=== PATIENT | female | born 1955 | race Caucasian/White ===

== ENCOUNTER → 2020-09-20 10:55 | Outpatient (BNVA) | payer OTHER, SELFPAY | PROVIDERS: Visit Provider Nurse Practitioner Family | DX: Z20.822 Contact with and (suspected) exposure to COVID-19 (principal); J06.9 Acute upper respiratory infection, unspecified | CPT/HCPCS: 87426 ==

== ENCOUNTER → 2021-01-17 09:20 | Outpatient (BNVA) | payer OTHER, SELFPAY | PROVIDERS: Visit Provider Nurse Practitioner Family | DX: Z20.822 Contact with and (suspected) exposure to COVID-19 (principal) | CPT/HCPCS: 87426 ==

== ENCOUNTER 2021-01-22 13:36 | Emergency (ER) | payer OTHER, SELFPAY ==
[2021-01-22 13:40] VITALS: BP 121/77; PULSE 88; RESP 18; TEMP 36.6; O2SAT 93; BMI 32.1
--- NOTE | 2021-01-22 13:40 | XR_ITS ---
WS: [id number] Exam: XR chest 1V portable [id number] Date/Time of Exam: 01/22/2021 1:40 PM Reason For Exam: COVID/sob Comparison 04/08/2014. There are subtle groundglass infiltrates throughout the right lung and the mid and lower left lung amador spicious for pneumonia. The lungs are fully inflated. No pleural effusions. Cardiomediastinal structu res are unremarkable for technique. Bony elements are intact. XR/XR chest 1V portable [id number] IMPRESSION: 1. Subtle bilateral groundglass infiltrates throughout both lungs suggesting pn eumonia. This pattern is nonspecific but could be seen with Covid pneumonia.
--- NOTE | 2021-01-22 13:54 | ED_ITS ---
Documented by User: GIULIANO Dunlap 01/22/21 15:59 HPI - COVID General: Chief Complaint: Shortness of Breath/Dyspnea Stated Complaint: COVID +/COUGH/CONGESTION Time Seen by Provider: 01/22/21 13:54 Source: patient Mode of arrival: ambulatory Limitations: no limitations Triage information: Has fever, cough or shortness of breath . Exposure to COVID + person last 14 days History of Present Illness: HPI Narrative: Patient is a nice 65-year-old female who presents to ED today with a complaint of a cough secondary to COVID. Patient states she tested positive for COVID on 01/17. She states symptoms began the day of testing. She states her cough is nonproductive. She has noticed some shortness of breath with exertion. She has not been running fevers. No diarrhea. No abdominal pain. No vomiting. She is not having any chest pressure or discomfort. MD complaint: known COVID positive Prior covid testing: yes, results known Prior testing date: 01/17/21 COVID 19 common symptoms: positive non-productive cough, dyspnea, fatigue and headache(s); negative fever(s), chills, throat pain, nasal congestion, nausea, vomiting or diarrhea COVID 19 other sytmptoms: negative chest pain Onset (ago): day(s) Severity: moderate COVID Results: SARS-CoV-2 Antigen (Rapid) Positive (Negative) H 01/17/21 09:20 01/17/21 Review of Systems Const: Reports: fatigue; Denies: fever(s) or chills Eyes: Denies: change in vision ENMT: Denies: throat pain, odynophagia, nasal discharge or nasal congestion Card: Reports: dyspnea on exertion; Denies: chest pain, palpitations, irregular heart rhythm, edema, lightheadedness, syncope, pre-syncope or leg pain with exertion Resp: Reports: dyspnea, non-productive cough and chest congestion; Denies: wheezing or hemoptysis GI: Denies: abdominal pain, nausea, vomiting or diarrhea Musc: Denies: neck pain, back pain, extremity pain or joint pain Skin/Breast: Denies: rash Neuro: Reports: headache(s); Denies: numbness in extremities, weakness in extremities, sensory changes, difficulty walking or dizziness [facility] ED PFSH: Medical History (Updated 01/27/21 @ 16:27 by Joe Burch MD) GERD (gastroesophageal reflux disease) Sarcoidosis Surgical History (Updated 01/27/21 @ 16:27 by Joe Burch MD) Gastric bypass status for obesity Social History (Updated 01/27/21 @ 16:28 by Joe Burch MD) Smoking and tobacco status: former smoker Alcohol intake: never Substance/Drug Use: never Caregiver/support person: Yes Lives independently: Yes Household members: family Housing: House Marital status: Physical Exam Const: COMMON NORMALS: no acute distress, patient oriented x3, no limitations, healthy appearing, alert and well nourished GENERAL APPEARANCE: cooperative NUTRITIONAL APPEARANCE: overweight ORIENTATION/CONSCIOUSNESS: Yes awake, Yes oriented to person, Yes oriented to place and Yes oriented to time HENMT: COMMON NORMALS: normocephalic and atraumatic HEAD & SCALP: normocephalic and atraumatic Resp: COMMON NORMALS: normal respiratory effort and clear to auscultation bilaterally AUSCULTATION: clear to auscultation bilaterally Cardio: COMMON NORMALS: regular rate and regular rhythm RATE: regular rate RHYTHM: regular rhythm Extremity: COMMON NORMALS: no clubbing, cyanosis or edema and no calf tenderness Neuro: COMMON NORMALS: patient oriented x3 SENSORIUM/ORIENTATION: Yes alert, Yes oriented to person, Yes oriented to place and Yes oriented to time Course Vital Signs: Vital signs: Vital Signs Temperature 97.8 F 01/22/21 15:58 Pulse Rate 88 01/22/21 15:58 Respiratory Rate 18 01/22/21 15:58 Blood Pressure 121/77 01/22/21 15:58 Pulse Oximetry 93 01/22/21 15:58 MDM - COVID MDM Narrative: Medical decision making narrative: Patient CXR consistent with COVID-19 pneumonia with groundglass infiltrates. Her vital signs are stable. Respiratory came and evaluated patient with a home O2 evaluation and she did not qualify for oxygen. She does qualify for MCA based on her weight (over 25 BMI). Patient will be discharged home with an oral prescription for dexamethasone and will be discharged directly to infusion center for MCA. Strict return to ED precautions given. Imaging Data: CXR: Radiologist's impression: [address] [place] [address] XRay Report Signed Patient: Amy Tovar Unit #: [id number] : [id number] Age/Sex: 65 / F ADM Date: 01/22/21 Loc: ER Room/Bed: Attending Dr: Ordering Provider/Ordering MD: Francisca Mcneil Date of Service: 01/22/21 Procedure(s): XR chest 1V portable [id number] Accession Number(s): [id number] Report Number: [id number] WS: [id number] Exam: XR chest 1V portable [id number] Date/Time of Exam: 01/22/2021 1:40 PM Reason For Exam: COVID/sob Comparison 04/08/2014. There are subtle groundglass infiltrates throughout the right lung and the mid and lower left lung suspicious for pneumonia. The lungs are fully inflated. No pleural effusions. Cardiomediastinal structures are unremarkable for technique. Bony elements are intact. XR/XR chest 1V portable [id number] IMPRESSION: 1. Subtle bilateral groundglass infiltrates throughout both lungs suggesting pneumonia. This pattern is nonspecific but could be seen with Covid pneumonia. Dictated By: Humberto Keita DO Signed By: Humberto Keita DO Signed Date/Time: 01/22/21 1406 DD/ 140 COVID Results: SARS-CoV-2 Antigen (Rapid) Positive (Negative) H 01/17/21 09:20 01/17/21 Monoclonal Antibody - ED Inclusion/Exclusion Criteria age >/= 12 years, weight >/= 40kg /88lbs, symptom onset less than 10 days ago and + direct Sars-Cov-2 test less than 7-10 days ago obesity (BMI >25 or 85%til for age) not requiring hospitalization, not requiring oxygen (if not chronically on oxygen) and no increase oxygen requirement (if chronically on oxygen) Patient education patient/family/caregiver received/reviewed fact sheet, Emergency Use Authorization/unapproved drug status discussed with patient/family/caregiver, alternatives to this treatment discussed with patient/family/caregiver, risks and benefits of medication reviewed with patient/family/caregiver, patient/family/caregiver given opportunity for questions, which were answered and patient consents to receiving Monoclonal Antibody Treatment Plan for treatment Meets criteria for Monoclonal Antibody infusion Date of symptom(s) onset: 01/17/21 Where are the positive COVID test results, if positive?: Resulted in [facility] Ordering Monoclonal Antibody infusion for today Discharge Plan Discharge Patient Disposition: Home Clinical Impression: Pneumonia due to 2019-nCoV Condition: Stable Prescriptions: No Action hydrocodone-acetaminophen 10-325 mg tablet 1 tab PO Q6H PRN (Reason: Pain) RF: 0 pantoprazole 40 mg tablet,delayed release (DR/EC) 40 mg PO BID RF: 0 biotin 5 mg capsule 5 mg PO DAILY PRN (Reason: takes when she remembers) RF: 0 Tylenol Ex Str Rapid Release 500 mg Tablet 500 mg PO Q4H PRN (Reason: Pain) RF: 0 trazodone 100 mg tablet 100 mg PO BEDTIME PRN (Reason: Sleep) RF: 0 ProAir HFA 90 mcg/actuation Hfa Aerosol Inhaler 2 puff INHALATION QID PRN (Reason: Shortness Of Breath) RF: 0 Bariatric Multivitamins 45 mg iron- 800 mcg-120 mcg Capsule 1 cap PO DAILY PRN (Reason: states she takes when she remembers) RF: 0 dexamethasone 6 mg tablet 6 mg PO DAILY RF: 0 Discharge Orders: Discharge ED (Routine); Ordered 01/22/21 Ordered By: Francisca Mcneil Other Ambulatory Orders: Request for MCA (Routine) Timeframe: 1 Day Facility: [facility] - Location: Outpatient [facility] Ordered By: Francisca Mcneil Patient Instructions: COVID-19 (Coronavirus Disease 2019) (ED) Activity Restrictions/Additional Instructions: As we discussed you did not qualify for home oxygen on your respiratory trial in the ED. You qualify for a monoclonal antibody infusion. This has been ordered to be completed directly after your discharge from the ED. You need to return to the emergency department for severe shortness of breath or difficulty breathing, severe chest pain, or any other concerns you may have. I hope you begin to feel better soon. Coding Level of Care Code ED [employer]er for [facility] Fw[facility] Exam Detailed Documented by User: Denzel Springre MD 01/27/21 21:42 HPI - COVID General: Chief Complaint: Shortness of Breath/Dyspnea Stated Complaint: COVID +/COUGH/CONGESTION Time Seen by Provider: 01/22/21 13:54 COVID Results: SARS-CoV-2 Antigen (Rapid) Positive (Negative) H 01/17/21 09:20 01/17/21 [facility] ED PFSH: Medical History (Updated 01/27/21 @ 16:27 by Joe Burch MD) GERD (gastroesophageal reflux disease) Sarcoidosis Surgical History (Updated 01/27/21 @ 16:27 by Joe Burch MD) Gastric bypass status for obesity Social History (Updated 01/27/21 @ 16:28 by Joe Burch MD) Smoking and tobacco status: former smoker Alcohol intake: never Substance/Drug Use: never Caregiver/support person: Yes Lives independently: Yes Household members: family Housing: House Marital status: Course Vital Signs: Vital signs: Vital Signs Temperature 97.8 F 01/22/21 15:58 Pulse Rate 88 01/22/21 15:58 Respiratory Rate 18 01/22/21 15:58 Blood Pressure 121/77 01/22/21 15:58 Pulse Oximetry 93 01/22/21 15:58 MDM - COVID MDM Narrative: Medical decision making narrative: I have reviewed this documentation. Denzel Springer MD Emergency Medicine COVID Results: SARS-CoV-2 Antigen (Rapid) Positive (Negative) H 01/17/21 09:20 01/17/21 Discharge Plan Discharge Patient Disposition: Home Clinical Impression: Pneumonia due to 2019-nCoV Condition: Stable Prescriptions: No Action hydrocodone-acetaminophen 10-325 mg tablet 1 tab PO Q6H PRN (Reason: Pain) RF: 0 pantoprazole 40 mg tablet,delayed release (DR/EC) 40 mg PO BID RF: 0 biotin 5 mg capsule 5 mg PO DAILY PRN (Reason: takes when she remembers) RF: 0 Tylenol Ex Str Rapid Release 500 mg Tablet 500 mg PO Q4H PRN (Reason: Pain) RF: 0 trazodone 100 mg tablet 100 mg PO BEDTIME PRN (Reason: Sleep) RF: 0 ProAir HFA 90 mcg/actuation Hfa Aerosol Inhaler 2 puff INHALATION QID PRN (Reason: Shortness Of Breath) RF: 0 Bariatric Multivitamins 45 mg iron- 800 mcg-120 mcg Capsule 1 cap PO DAILY PRN (Reason: states she takes when she remembers) RF: 0 dexamethasone 6 mg tablet 6 mg PO DAILY RF: 0 Discharge Orders: Discharge ED (Routine); Ordered 01/22/21 Ordered By: Francisca Mcneil Other Ambulatory Orders: Request for MCA (Routine) Timeframe: 1 Day Facility: [facility] - Location: Outpatient Surgical Services Ordered By: Francisca Mcneil Patient Instructions: COVID-19 (Coronavirus Disease 2019) (ED) Activity Restrictions/Additional Instructions: As we discussed you did not qualify for home oxygen on your respiratory trial in the ED. You qualify for a monoclonal antibody infusion. This has been ordered to be completed directly after your discharge from the ED. You need to return to the emergency department for severe shortness of breath or difficulty breathing, severe chest pain, or any other concerns you may have. I hope you begin to feel better soon. Coding Level of Care Code ED Wool Cleaner for [facility] Fwd Exam Detailed
[2021-01-22 14:41] VITALS: O2SAT 90; O2SAT 95
[2021-01-22 15:58] VITALS: BP 121/77; PULSE 88; RESP 18; TEMP 36.6; O2SAT 93
== END 2021-01-22 15:59 | disposition home or self-care (01) ==
PROVIDERS: Emergency Provider Physician Assistant
DX: U07.1 COVID-19 (principal); J12.82 Pneumonia due to coronavirus disease 2019; Z87.891 Personal history of nicotine dependence
CPT/HCPCS: 71045; 96365; 99282

== ENCOUNTER 2021-01-22 16:08 | Outpatient (CLI) | payer OTHER, SELFPAY ==
[2021-01-22 16:08] VITALS: BP 158/93; PULSE 83; RESP 22; TEMP 37.1; O2SAT 94
[2021-01-22 16:19] VITALS: BMI 32.1
--- NOTE | 2021-01-22 17:21 | PC.NURSE ---
Orders for monoclonal infusion were not interfacing through. Spoke with Francisca Mcneil and was given a verbal order over the phone which was read back to her regarding initiating Monoclonal infusion for the patient. Nurse will continue to monitor the patient during infusion and one hour after completion.
[2021-01-22 18:40] VITALS: BP 160/90; PULSE 83; RESP 19; TEMP 37.2; O2SAT 94
== END 2021-01-22 16:09 | disposition home or self-care (01) ==
PROVIDERS: PCP Family Medicine; Visit Provider Physician Assistant
DX: U07.1 COVID-19 (principal)
CPT/HCPCS: 96365

== ENCOUNTER 2021-01-27 13:04 | Inpatient (IN) | payer OTHER, SELFPAY ==
[2021-01-27] VITALS (17 sets, daily range): BP systolic 138–192; BP diastolic 80–115; PULSE 62–103; RESP 18–30; TEMP 36.6–37.1; O2SAT 84–99; BMI 32.1
--- NOTE | 2021-01-27 13:27 | XR_ITS ---
WS: [id number] XR chest 1V portable [id number] REASON FOR EXAM: SOB/COVID FINDINGS: Compared to previous chest x-ray of 01/22/2021, a reticular groundglass infiltrative process has fully developed in the left lower and left midlung ramirez. Likely similar infiltrative changes are develop ing in the lower right lung. No other significant interval change or new finding. XR/XR chest 1V portable [id number] IMPRESSION: Developing infiltrates in the left and likely the right lung as well. 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
--- NOTE | 2021-01-27 13:34 | PC.NURSE ---
during triage noted SP02 85% with work of breathing and unable to speak complete sentence. placed pt on 3L NC
--- NOTE | 2021-01-27 13:37 | PC.NURSE ---
Notified Charge nurse, pt to room 15 when clean
--- NOTE | 2021-01-27 14:32 | CTR_ITS ---
PROCEDURE INFORMATION: Exam: CTA Chest With Contrast Exam date and time: 01/27/2021 2:32 PM Age: 65 years old Clinical indication: Shortness of breath; Additional info: Hypoxia/covid TECHNIQUE: Imaging protocol: Computed tomographic angiography of the chest with contrast. 3D rendering (Not supervised by radiologist): MIP and/or 3D reconstructed images were created by the technologist. Radiation optimization: All CT scans at this facility use at least one of these dose optimization techniques: automated exposure control; mA and/or kV adjustment per patient size (includes targeted exams where dose is matched to clinical indication); or iterative reconstruction. Contrast material: OMNI 350; Contrast volume: 73 ml; Contrast route: INTRAVENOUS (IV); COMPARISON: CR XR chest 1V portable [id number] 01/27/2021 1:31 PM RADIATION DOSE METRICS: Total DLP (mGy-cm): 598.11 FINDINGS: Pulmonary arteries: Normal. No pulmonary emboli. Aorta: Unremarkable. No aortic aneurysm. No aortic dissection. Lungs: Patchy bilateral airspace infiltrates. Pleural spaces: Unremarkable. No pneumothorax. No pleural effusion. Heart: Cardiomegaly. Lymph nodes: Several prominent subcentimeter nonspecific mediastinal lymph nodes. Gallbladder and bile ducts: Cholecystectomy. Bones/joints: Unremarkable. No acute fracture. Soft tissues: Unremarkable. CT/CT angio chest PE protcl [id number] IMPRESSION: 1. Negative for pulmonary embolus. 2. Cardiomegaly. 3. Several prominent subcentimeter nonspecific mediastinal lymph nodes. 4. Cholecystectomy. 5. Patchy bilateral airspace infiltrates.
--- NOTE | 2021-01-27 14:33 | W.ED.COVID ---
HPI - COVID General: Chief Complaint: COVID symptoms Stated Complaint: COVID + TROUBLE BREATHING Time Seen by Provider: 01/27/21 14:18 Triage information: Has fever, cough or shortness of breath. Exposure to COVID + person last 14 days History of Present Illness: HPI Narrative: 65-year-old female presents emergency room with complaints of difficulty breathing. Tested positive for Covid on rapid antigen on 01/17/2021 subsequently did receive monoclonal antibodies despite this she has gotten progressive worsening symptoms particularly her breathing on arrival here she presents with an O2 sat 84% on initially on room air however when I went in to see the patient she is on 3 L and was still in the low to mid 90s I increased her oxygen to 6 L by nasal cannula and she improved to 90%. She is noticeably tachypneic and having increased work of breathing. complaint: known COVID positive Prior covid testing: yes, results known Prior testing date: 01/17/21 COVID 19 common symptoms: positive fever(s), chills, cough, non-productive cough, dyspnea, fatigue, body aches, headache(s), loss of sense of smell and/or taste, throat pain, nasal congestion and vomiting COVID 19 other sytmptoms: positive requiring oxygen; negative chest pain Onset (ago): day(s) Severity: severe Pertinent comorbid conditions: obesity Treatment prior to arrival: steroids COVID Results: SARS-CoV-2 Antigen (Rapid) Positive (Negative) H 01/17/21 09:20 01/17/21 Review of Systems Const: Reports: fever(s), chills, body aches and fatigue ENMT: Reports: throat pain and nasal congestion Card: Denies: chest pain, edema, dyspnea on exertion or orthopnea Resp: Reports: dyspnea and non-productive cough GI: Reports: vomiting : Denies: flank pain, difficulty voiding, dysuria, urinary frequency or urinary urgency Skin/Breast: Denies: rash or pruritus Neuro: Reports: headache(s) [facility] ED PFSH: Medical History (Updated 01/28/21 @ 06:55 by Rhys Ruvalcaba DO) GERD (gastroesophageal reflux disease) Sarcoidosis Surgical History (Updated 01/27/21 @ 16:27 by Joe Burch MD) Gastric bypass status for obesity Social History (Updated 01/27/21 @ 16:28 by Joe Burch MD) Smoking and tobacco status: former smoker Alcohol intake: never Substance/Drug Use: never Caregiver/support person: Yes Lives independently: Yes Household members: family Housing: House Marital status: Physical Exam Const: GENERAL APPEARANCE: cooperative ORIENTATION/CONSCIOUSNESS: Yes awake, Yes oriented to person, Yes oriented to place and Yes oriented to time HENMT: COMMON NORMALS: normocephalic, atraumatic, hearing grossly normal bilaterally and external ears normal HEAD & SCALP: normocephalic and atraumatic EXTERNAL EAR: Yes external ears normal Neck/C-Spine: COMMON NORMALS: no JVD Resp: EFFORT & INSPECTION: Yes tachypneic, Yes respiratory distress and Yes labored AUSCULTATION: crackles and wheezes Cardio: COMMON NORMALS: no JVD, regular rate, regular rhythm and No murmurs present (Cardio) RATE: regular rate RHYTHM: regular rhythm GI: COMMON NORMALS: Soft to palpation and No hepatosplenomegaly present AUSCULTATION: Yes normoactive bowel sounds PALPATION: Yes Soft to palpation, No Tenderness to palpation present (GI), No Guarding due to palpation present (GI) and Yes No hepatosplenomegaly present Extremity: COMMON NORMALS: normal to inspection, capillary refill normal, no clubbing, cyanosis or edema, no calf tenderness and no pedal edema Neuro: SENSORIUM/ORIENTATION: Yes oriented to person, Yes oriented to place and Yes oriented to time Skin: COMMON NORMALS: no rashes or lesions noted GENERAL SKIN EXAM: no rashes or lesions noted Course Vital Signs: Vital signs: Vital Signs Temperature 97.9 F 01/28/21 04:00 Pulse Rate 70 01/28/21 06:00 Respiratory Rate 18 01/28/21 06:00 Blood Pressure 161/100 01/28/21 06:00 Pulse Oximetry 92 01/28/21 06:00 MDM - COVID MDM Narrative: Medical decision making narrative: Labs imaging reviewed.Patient has Covid pneumonitis. Also concerned because elevated procalcitonin with secondary pneumonia antibiotics started start remdesivir and dexamethasone will admit she is on heated high flow at this time am concerned that she may have been impending for respiratory arrest and may require intubation she is agreeable to this. We will place her in the ICU. Lab Data: Labs: Lab Results 01/27/21 01/27/21 01/27/21 14:37 14:37 14:37 WBC 12.6 10^3/uL H 10 ^3/uL (4.0-10.0) RBC 5.06 10^6/uL 10^6 /uL (4.1-5.3) Hgb 14.0 g/dL g/dL (11.5-15.3) Hct 43.8 % % (37.0-47.0) MCV 86.6 fl fl (81-99) MCH 27.7 pg L pg (28.0-34.0) MCHC 32.0 g/dL g/dL (30.0-36.0) RDW 14.1 % % (12.1-15.1) Plt Count 554 10^3/cmm H 10 ^3/cmm (130-400) MPV 10.2 fL fL (7.4-10.4) Neut % (Auto) 93.0 % % Lymph % (Auto) 2.2 % % Schoolcraft % (Auto) 1.5 % % Eos % (Auto) 0.0 % % Baso % (Auto) 0.2 % % Neut # (Auto) 11.67 10^3/uL H 1 0^3/uL (1.8-7.7) Lymph # (Auto) 0.3 10^3/uL L 10^ 3/uL (0.8-4.8) Schoolcraft # (Auto) 0.2 10^3/uL 10^3/ uL (0.2-0.9) Eos # (Auto) 0.0 10^3/uL 10^3/ uL (0.0-0.8) Baso # (Auto) 0.0 10^3/uL 10^3/ uL (0.0-0.1) Nucleated RBC % (a uto) 0 % % Nucleated RBCs # 0.0 /100WBC /100W BC PT 14.60 SECONDS SEC ONDS (12.1-14.9) INR 1.11 (0.8-1.2) APTT 35.3 SECONDS SECO NDS (23.9-36.7) D-Dimer 2.39 ug/mIFEU H u g/mIFEU (0-0.59) Specimen Type Arterial Sample Site Radial, left ABG pH 7.59 H* (7.35-7.45) ABG pCO2 23.6 mmHg L mmHg (35-45) ABG pO2 47.2 mmHg L mmHg (80.0-100.0) ABG HCO3 22.5 mmol/L mmol/ L (22-26) ABG Base Excess 2.3 mmol/L H mmol /L (-2.0-2.0) Norris Test Pos Hematocrit 41.5 % % (37-47) O2 Delivery Device Nc O2 Liters/Min 6.0 % % Office Employee ID Cak Sodium Potassium Chloride Carbon Dioxide Anion Gap BUN Creatinine GFR Calculation Glucose Calculated Osmolal ity Lactic Acid Calcium Iron TIBC % Saturation Unsat Iron Binding Total Bilirubin AST ALT Alkaline Phosphata se Creatine Kinase C-Reactive Protein Total Protein Albumin Globulin Procalcitonin TSH Influenza Type A A g Influenza Type B A g 01/27/21 01/27/21 01/27/21 14:37 14:37 14:37 WBC RBC Hgb Hct MCV MCH MCHC RDW Plt Count MPV Neut % (Auto) Lymph % (Auto) Schoolcraft % (Auto) Eos % (Auto) Baso % (Auto) Neut # (Auto) Lymph # (Auto) Schoolcraft # (Auto) Eos # (Auto) Baso # (Auto) Nucleated RBC % (a uto) Nucleated RBCs # PT INR APTT D-Dimer Specimen Type Sample Site ABG pH ABG pCO2 ABG pO2 ABG HCO3 ABG Base Excess Norris Test Hematocrit O2 Delivery Device O2 Liters/Min Office Employee ID Sodium 141 mmol/L mmol/L (136-145) Potassium 3.4 mmol/L L mmol /L (3.5-5.1) Chloride 102 mmol/L mmol/L (98-107) Carbon Dioxide 24 mmol/L mmol/L (22-29) Anion Gap 18.4 (5-19) BUN 20 mg/dL mg/dL (8-23) Creatinine 0.7 mg/dL mg/dL (0.5-0.9) GFR Calculation 84.2 mL/min L mL/ min (90-130) Glucose 111 mg/dL mg/dL (65-115) Calculated Osmolal ity 295 mOsm/kg mOsm/ kg (285-295) Lactic Acid 1.9 mmol/L mmol/L (0.5-2.2) Calcium 8.9 mg/dL mg/dL (8.5-10.5) Iron 20 ug/dL L ug/dL (37-145) TIBC 244 mcg/dl mcg/dl % Saturation 8.1 % L % (20-50) Unsat Iron Binding 224 ug/dL ug/dL (112-347) Total Bilirubin 0.3 mg/dL mg/dL (0.15-1.2) AST 16 U/L U/L (0-32) ALT 11 U/L U/L (0-33) Alkaline Phosphata se 124 IU/L H IU/L (35-105) Creatine Kinase C-Reactive Protein 322.7 mg/L H mg/L (0.0-4.9) Total Protein 8.4 g/dL g/dL (6.6-8.7) Albumin 3.5 g/dL g/dL (3.5-5.2) Globulin 4.9 g/dL H g/dL (1.3-4.6) Procalcitonin 2.13 ng/mL H ng/m L (0-0.5) TSH Influenza Type A A g Influenza Type B A g 01/27/21 01/27/21 14:37 16:49 WBC RBC Hgb Hct MCV MCH MCHC RDW Plt Count MPV Neut % (Auto) Lymph % (Auto) Schoolcraft % (Auto) Eos % (Auto) Baso % (Auto) Neut # (Auto) Lymph # (Auto) Schoolcraft # (Auto) Eos # (Auto) Baso # (Auto) Nucleated RBC % (a uto) Nucleated RBCs # PT INR APTT D-Dimer Specimen Type Sample Site ABG pH ABG pCO2 ABG pO2 ABG HCO3 ABG Base Excess Norris Test Hematocrit O2 Delivery Device O2 Liters/Min Office Employee ID Sodium Potassium Chloride Carbon Dioxide Anion Gap BUN Creatinine GFR Calculation Glucose Calculated Osmolal ity Lactic Acid Calcium Iron TIBC % Saturation Unsat Iron Binding Total Bilirubin AST ALT Alkaline Phosphata se Creatine Kinase 45 U/L U/L (26-192) C-Reactive Protein Total Protein Albumin Globulin Procalcitonin TSH 0.56 uIU/mL uIU/m L (0.27-4.20) Influenza Type A A g Negative (Negative) Influenza Type B A g Negative (Negative) COVID Results: SARS-CoV-2 Antigen (Rapid) Positive (Negative) H 01/17/21 09:20 01/17/21 Critical Care Time Critical Care Time: Critical Care Time: Yes Total Critical Care Time: 40 Attestation: The high probability of a clinically significant, sudden or life threatening deterioration of the patient's respiratory system(s) required my full and direct attention, intervention and personal management. The critical care time is as shown. This time is in addition to time spent performing any reported procedures but includes the following: [x] Data and vital sign review and interpretation [x] Patient assessment, examination and intervention [x] Documentation [x] Medication orders and management Discharge Plan Discharge Patient Disposition: Admitted As Inpatient Admit Provider: Joe Burch Clinical Impression: Acute respiratory failure with hypoxia, COVID-19, Pneumonia due to 2019-nCoV Condition: Stable Coding Level of Care Code ED Manufacturing Supervisor 2Nd Shift for [facility] Fwd Exam Comprehensive
[2021-01-27 14:48] LABS: ABG PCO2 23.6 mmHg (35-45); Arterial Blood Gas Hematocrit 41.5 % (37-47); Base Excess ABG 2.3 mmol/L (-2.0-2.0); Blood Gas Allen Test Pos; Blood Gas Operator Identificat CAK; Blood Gas Sample Site Radial, left; Blood Gas Sample Type Arterial; HCO3 ABG 22.5 mmol/L (22-26); Oxygen Device NC; PO2 ABG 47.2 mmHg (80.0-100.0)
[2021-01-27 14:49] LABS: ABG PH Result 7.59 (7.35-7.45)
[2021-01-27 15:00] LABS: Basophils % 0.2 %; Hematocrit 43.8 % (37.0-47.0); Lymphocytes # 0.3 10^3/uL (0.8-4.8); Lymphocytes % 2.2 %; Mean Corpuscular Hemoglobin 27.7 pg (28.0-34.0); Mean Corpuscular Volume 86.6 fl (81-99); Mean Platelet Volume 10.2 fL (7.4-10.4); Monocytes # 0.2 10^3/uL (0.2-0.9); Monocytes % 1.5 %; Neutrophils # 11.67 10^3/uL (1.8-7.7); Nucleated Red Blood Cells % 0 %; Platelet Count 554 10^3/cmm (130-400); Red Blood Count 5.06 10^6/uL (4.1-5.3); Red Cell Distribution Width 14.1 % (12.1-15.1); White Blood Count 12.6 10^3/uL (4.0-10.0)
--- NOTE | 2021-01-27 15:00 | PC.NURSE ---
PT ON CONTINUOUS SPO2, NIBP, AND CM MONITORING.
[2021-01-27] MEDS: dexamethasone 10 mg/mL INJ 6 MG IVP (15:04)
[2021-01-27] MEDS: levofloxacin-dextrose 5 % 750 MG/150 ML PREMIX 100 MG IV (15:05)
[2021-01-27 15:23] LABS: INR 1.11 (0.8-1.2)
[2021-01-27 15:24] LABS: Alanine Aminotransferase 11 U/L (0-33); Albumin Level 3.5 g/dL (3.5-5.2); Alkaline Phosphatase 124 IU/L (35-105); Anion Gap 18.4 (5-19); Aspartate Amino Transferase 16 U/L (0-32); Blood Urea Nitrogen 20 mg/dL (8-23); C Reactive Protein 322.7 mg/L (0.0-4.9); Calcium 8.9 mg/dL (8.5-10.5); Carbon Dioxide 24 mmol/L (22-29); Chloride 102 mmol/L (98-107); Creatinine Clr Calc Pharmacy 107.9363; Globulin 4.9 g/dL (1.3-4.6); Glomerular Filtration Rate 84.2 mL/min (90-130); Glucose 111 mg/dL (65-115); Osmolality Calculated 295 mOsm/kg (285-295); Potassium 3.4 mmol/L (3.5-5.1); Sodium 141 mmol/L (136-145); Total Bilirubin 0.3 mg/dL (0.15-1.2); Total Protein 8.4 g/dL (6.6-8.7)
[2021-01-27 15:25] LABS: Partial Thromboplastin Time 35.3 SECONDS (23.9-36.7)
[2021-01-27 15:27] LABS: D Dimer 2.39 ug/mIFEU (0-0.59); Lactic Sepsis W/Reflex 1.9 mmol/L (0.5-2.2)
[2021-01-27 15:30] LABS: Procalcitonin 2.13 ng/mL (0-0.5)
--- NOTE | 2021-01-27 16:25 | P.HP_ITS ---
Providers/Chief Complaint Primary Care Provider: Deacon Armas Chief Complaint: COVID + TROUBLE BREATHING History of Present Illness Amy Tovar is a 65 year old female with past medical history of sarcoidosis, post gastric bypass presented to the ER today after being tested positive for COVID-19 on January 17. Patient is post monoclonal antibody infusion on January 22. Patient is not vaccinated for COVID-19. Patient lives with her and granddaughter who are also having similar symptoms but milder. Patient having increased difficulty in breathing from January 24. Presented to the ER today because was not able to catch her breath. On presentation saturating in low 80s requiring heated high flow up to 45 L to maintain saturation up to 93% currently. On examination patient is in mild respiratory distress, tachypneic, not able to complete sentences because of difficulty in breathing. Saturating 93% on 45 L with heart rate of 83, respiratory rate 25, blood pressure 138/80 mmHg. Review of Systems General: Reports: 10 or more systems reviewed and unremarkable except in HPI and below Const: Denies: fever(s), chills, body aches, change in appetite, change in weight, malaise, night sweats, diaphoresis, change in sleep pattern, daytime sleepiness or snoring Eyes: Denies: change in vision, blurry vision, photophobia, eye discomfort or eye discharge ENMT: Denies: throat pain, enlarged tonsils, hoarseness, mouth pain, oral sores, dry mouth, tinnitus, nasal congestion or post nasal drip Card: Denies: chest pain, palpitations, irregular heart rhythm, edema, swelling of feet/ankles, lightheadedness, syncope, pre-syncope, dyspnea on exertion, orthopnea, leg pain with exertion or acrocyanosis Resp: Denies: dyspnea, productive cough, non-productive cough, wheezing, stridor, pain on inspiration, change in phlegm color, hemoptysis or chest congestion GI: Denies: abdominal pain, nausea, vomiting, hematemesis, coffee ground emesis, dysphagia, heartburn, diarrhea, constipation, bloating, GI cramping, change in bowel habits, pain on defecation, hematochezia or melena : Denies: flank pain, dysuria, urinary frequency, urinary urgency, urinary hesitancy, nocturia or hematuria Musc: Denies: neck pain, back pain, extremity pain, joint pain, joint swelling, joint redness, joint stiffness or limited range of motion Neuro: Denies: headache(s), numbness in extremities, weakness in extremities, sensory changes, lack of coordination, difficulty walking, frequent falls, dizziness, vertigo, confusion, Slurred speech present, difficulty communicating thoughts or seizure-like activity Psych: Denies: anxiety, depression, mood swings, panic attacks, hopelessness or irritability Endo: Denies: polyuria, polydipsia, tired all the time, cold intolerance, excessive sweating, flushing or heat intolerance Claudio/Lymph: Denies: easy bruising or easy bleeding All/Imm: Denies: tongue swelling, facial swelling or acute wheezing Medications/Allergies Home Medications Medication Instructions Recorded Confirmed Last Taken Type biotin 5 mg capsule 5 mg PO DAILY PRN 09/20/20 01/27/21 Unknown History hydrocodone 10 mg-acetaminophen 1 tab PO Q6H PRN 09/20/20 01/27/21 01/27/21 06:00 History 325 mg tablet pantoprazole 40 mg tablet,delayed 40 mg PO BID tab 09/20/20 01/27/21 Unknown History release acetaminophen [Tylenol Ex Str 500 mg PO Q4H PRN 01/27/21 01/27/21 Unknown History Rapid Release] albuterol sulfate [ProAir HFA] 2 puff INHALATION QID PRN 01/27/21 01/27/21 Unknown History dexamethasone 6 mg PO DAILY 01/27/21 01/27/21 01/27/21 History [id number]-vit K 1 cap PO DAILY PRN 01/27/21 01/27/21 Unknown History [Bariatric Multivitamins] trazodone 100 mg PO BEDTIME PRN 01/27/21 01/27/21 Unknown History Allergies Allergy/AdvReac Type Severity Reaction Status Date / Time NSAIDS (Non-Steroidal Allergy Unknown Verified 01/27/21 14:42 Anti-Inflamma PFSH Acute PFSH: Medical History (Updated 01/27/21 @ 16:27 by Joe Burch MD) GERD (gastroesophageal reflux disease) Sarcoidosis Surgical History (Updated 01/27/21 @ 16:27 by Joe Burch MD) Gastric bypass status for obesity Social History (Updated 01/27/21 @ 16:28 by Joe Burch MD) Smoking and tobacco status: former smoker Alcohol intake: never Substance/Drug Use: never Caregiver/support person: Yes Lives independently: Yes Household members: family Housing: House Marital status: Vitals/I&O/Wt Last Vital Signs Temp 98.7 F 01/27/21 13:29 Pulse 83 01/27/21 15:00 Resp 24 H 01/27/21 15:00 BP 138/80 01/27/21 13:29 Pulse Ox 93 01/27/21 15:00 Weight last 48 hrs Weight 104.326 kg Physical Exam Narrative: EXAM NARRATIVE: General: AO x3, tachypneic, in distress because of difficulty in breathing HEENT: PERRLA, pupils bilaterally equal and reactive Chest: Diffuse crackles present all over the lung ramirez, rhonchi present all over the lung ramirez, equal good air entry bilaterally CVS: S1-S2 regular, no murmurs, no tachycardia, no gallops, no rubs Abdomen: Soft, nontender, no organomegaly, bowel sounds present Neuro: No focal deficits, no facial deformity, AO x3, power 5/5 in all limbs Data : 01/27/21 14:37 01/27/21 14:37 Micro: Microbiology 01/27/21 15:06 Blood Culture - Preliminary Blood SPECIMEN COLLECTED A&P Assessment and plan (1) Pneumonia due to 2019-nCoV: Status: Acute (2) Acute respiratory failure with hypoxia: Status: Acute Additional A&P Information Hypoxia secondary to COVID-19 pneumonia: Moderate to severe disease. Oxygen supplementation keeping saturation over 88%. Dexamethasone 6 mg daily. Remdesivir to finish a 5-day course. Vitamin C, zinc. DuoNebs, budesonide twice daily Pulmonary toilet with incentive spirometry flutter valve. We will monitor inflammatory markers including ferritin, ESR, CRP, D-dimer, fibrinogen. If getting elevated will dose Actemra. Patient was made aware of the same and he has given verbal consent. D-dimer elevated. Check CTA to rule out pulmonary embolism. For now we will start patient on full dose anticoagulation with Lovenox 1 mg/kg body weight every 12 hourly as patient requiring high oxygen supplementation. Will monitor for anemia or blood loss. Check sputum culture, procalcitonin, urine Legionella, bacterial antigen, blood culture. For now because patient is in acute respiratory failure start patient on treatment for community-acquired pneumonia with IV ceftriaxone and oral azithromycin. Given hypoxia will try to keep patient as negative as possible. Patient clinically dehydrated for now. Check echocardiogram, Strict input output charting, daily weights. Full code. Protonix for PUD prophylaxis. Lovenox will help with DVT prophylaxis. Admit to ICU. Attestations Medical Necessity Statement*: Admission for more than 2 midnights for hypoxic respiratory failure secondary to COVID-19 pneumonia Time Spent in Patient Care: Greater than 35 minutes (>than 50% of time spent in counselling and/or direct pt care on unit) . 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
[2021-01-27] MEDS: remdesivir 200 MG in sodium chloride 0.9% (100 ml) 60 ML 100 MG IV (16:38)
[2021-01-27] MEDS: enoxaparin 100 mg/mL Syringe SUBCUT (16:42)
[2021-01-27 17:07] LABS: Creatine Phosphokinase 45 U/L (26-192); Iron 20 ug/dL (37-145); Percent Saturation 8.1 % (20-50); Thyroid Stimulating Hormone 0.56 uIU/mL (0.27-4.20); Total Iron Binding Capacity 244 mcg/dl; Unsaturated Iron Binding 224 ug/dL (112-347)
--- NOTE | 2021-01-27 17:25 | PC.NURSE ---
report called to modesta gonzalez.
[2021-01-27] MEDS: iohexol 350 mg/mL 100 mL Btl IV (17:46)
--- NOTE | 2021-01-27 18:52 | PC.NURSE ---
Admit Note Patient admitted to ICU from ER via [facility]. Covering service notified. Patient presents with Covid and SOB. Orders reviewed & will continue to monitor. Patient and/or artists' booking representative oriented to environment, equipment, and informed of the following as found in the admission booklet: patient rights & responsibilities, visitor policy, hand and respiratory hygiene practice. Other education includes: visitor policy, O2 and IV pumps. Patient and/or artists' booking representative verbalize understanding.
[2021-01-27] MEDS: morphine 4 mg/mL SDV 1 mL 2 MG IVP (19:19)
[2021-01-27] MEDS: ipratropium-albuterol 3 mL Neb INHALATION (19:53)
[2021-01-27] MEDS: pantoprazole 40 mg SDV IVP (20:10)
[2021-01-27] MEDS: cefTRIAXone 1,000 MG in sodium chloride 0.9% (plus) 50 ML 100 MG IV (20:10)
[2021-01-27] MEDS: FUROsemide 10 mg/mL SDV 4mL 40 MG IVP (20:10)
[2021-01-27] MEDS: dexamethasone 4 mg/mL INJ 6 MG IVP (20:10)
[2021-01-27] MEDS: benzonatate 100 mg Capsule PO (20:12)
[2021-01-27] MEDS: ascorbic acid 500 mg Tablet PO (20:12)
[2021-01-27 20:44] LABS: Influenza A by IFA Negative (Negative); Influenza B by IFA Negative (Negative)
[2021-01-27] MEDS: lidocaine 1% 5 ML in potassium chloride premix 100 ML 25 ML IV (21:24)
[2021-01-27 23:47] LABS: Add Urine Microscopic? NO; Charge for UA Resulting for Rev
[2021-01-28] VITALS (41 sets, daily range): BP systolic 133–173; BP diastolic 75–111; PULSE 63–109; RESP 16–95; TEMP 36.6–36.8; O2SAT 80–96
[2021-01-28 00:03] LABS: Bilirubin Urine Neg (Negative); Blood Urine Neg (Negative); Glucose Urine UA Norm (Normal); Ketones Urine 1+ (Negative); Leukocyte Esterase Urine Negative (Negative); Nitrate Urine Negative (Negative); Protein Urine Neg (Negative); Urine Appearance Clear (CLEAR); Urine Color Yellow (Yellow); Urobilinogen Urine Neg (Negative); pH Urine 5 (5-7)
[2021-01-28] MEDS: HYDROcodone-acetaminophen 10-325 mg Tablet 1 TAB PO ×4 (01:48→21:08)
[2021-01-28] MEDS: ipratropium-albuterol 3 mL Neb INHALATION ×7 (03:26→23:26)
[2021-01-28 03:41] LABS: ABG PCO2 32.8 mmHg (35-45); ABG PH Result 7.48 (7.35-7.45); Arterial Blood Gas Hematocrit 37.5 % (37-47); Base Excess ABG 1.6 mmol/L (-2.0-2.0); Blood Gas Allen Test Pos; Blood Gas Sample Site Radial, right; Blood Gas Sample Type Arterial; HCO3 ABG 24.6 mmol/L (22-26); Oxygen Device NC; PO2 ABG 81.9 mmHg (80.0-100.0)
[2021-01-28] MEDS: enoxaparin 100 mg/mL Syringe SUBCUT (04:19)
[2021-01-28 05:10] LABS: Basophils % 0.2 %; Hematocrit 40.1 % (37.0-47.0); Hemoglobin 12.5 g/dL (11.5-15.3); Lymphocytes # 0.2 10^3/uL (0.8-4.8); Lymphocytes % 3.6 %; Mean Corpuscular HGB Conc 31.2 g/dL (30.0-36.0); Mean Corpuscular Hemoglobin 27.1 pg (28.0-34.0); Mean Corpuscular Volume 86.8 fl (81-99); Mean Platelet Volume 10.1 fL (7.4-10.4); Monocytes # 0.2 10^3/uL (0.2-0.9); Monocytes % 2.8 %; Neutrophils # 5.45 10^3/uL (1.8-7.7); Neutrophils % 88.1 %; Nucleated Red Blood Cells % 0 %; Platelet Count 532 10^3/cmm (130-400); Red Blood Count 4.62 10^6/uL (4.1-5.3); White Blood Count 6.2 10^3/uL (4.0-10.0)
[2021-01-28 05:37] LABS: Chol HDL Ratio 3.77 mg/dL (0.0-4.40); Cholesterol 166 mg/dL (0-200); HDL Cholesterol 44 mg/dL (60-100); LDL Cholesterol Calculated 99 mg/dL (50-129); Triglycerides 115 mg/dL (0-150); VLDL Cholestrol Calculation 23 mg/dL (0-30)
[2021-01-28 05:42] LABS: Anion Gap 19.8 (5-19); Blood Urea Nitrogen 22 mg/dL (8-23); Calcium 8.3 mg/dL (8.5-10.5); Carbon Dioxide 23 mmol/L (22-29); Chloride 104 mmol/L (98-107); Glomerular Filtration Rate 72.2 mL/min (90-130); Glucose 101 mg/dL (65-115); Osmolality Calculated 299 mOsm/kg (285-295); Potassium 3.8 mmol/L (3.5-5.1); Sodium 143 mmol/L (136-145)
[2021-01-28 06:08] LABS: Estmated Average Glucose 103; Hemoglobin A1C 5.2 % (4.0-6.0)
[2021-01-28 06:26] LABS: Slide Review Slide Review Perform
[2021-01-28] MEDS: azithromycin 250 mg Tablet 500 MG PO (08:59)
[2021-01-28] MEDS: ascorbic acid 500 mg Tablet PO ×2 (08:59→17:39)
[2021-01-28] MEDS: zinc gluconate 50 mg Tablet PO (08:59)
[2021-01-28] MEDS: benzonatate 100 mg Capsule PO ×3 (09:00→21:08)
[2021-01-28] MEDS: amlodipine 5 mg Tablet PO (10:24)
[2021-01-28] MEDS: FUROsemide 10 mg/mL SDV 4mL 40 MG IVP (10:24)
[2021-01-28 12:20] LABS: Procalcitonin 1.81 ng/mL (0-0.5)
--- NOTE | 2021-01-28 14:23 | P.PN_ITS ---
Subjective Subjective: Interval history: No acute events overnight. Today morning patient did have 1 episode of hypoxia for which her oxygen supplementation were transiently increased. Currently on 50 L 60% heated high flow saturating 93%. Patient slightly better on examination today but still having tachypnea with occasional episodes of pursed lips getting exacerbation on conversation. Vitals/I&O/Wt Last Vital Signs Temp 98.1 F 01/28/21 12:00 Pulse 86 01/28/21 14:03 Resp 23 H 01/28/21 14:03 BP 167/111 01/28/21 12:00 Pulse Ox 92 01/28/21 14:03 01/27/21 01/28/21 01/28/21 22:59 06:59 14:59 Intake Total 300 / 300 345 / 645 300 / 300 Output Total 1000 / 1000 750 / 1750 1750 / 1750 Balance -700 / -700 -405 / -1105 -1450 / -1450 Weight last 48 hrs Weight 102.965 kg Weight 104.326 kg Weight 104.326 kg Physical Exam Narrative: EXAM NARRATIVE: General: AO x3, tachypneic, in distress because of difficulty in breathing HEENT: PERRLA, pupils bilaterally equal and reactive Chest: Diffuse crackles present all over the lung ramirez, rhonchi present all over the lung ramirez, equal good air entry bilaterally CVS: S1-S2 regular, no murmurs, no tachycardia, no gallops, no rubs Abdomen: Soft, nontender, no organomegaly, bowel sounds present Neuro: No focal deficits, no facial deformity, AO x3, power 5/5 in all limbs Urinary Catheter Management^: Estrada: Cath Placed During This Visit: yes Urinary Catheter Date of Insertion: 01/27/21 Urinary Catheter Time of Insertion: 17:16 Data : 01/28/21 04:20 01/28/21 04:20 Micro: Microbiology 01/27/21 23:35 Bacterial Antigens - Final Urine,Clean Catch 01/27/21 Unknown Blood Culture - Preliminary Blood SPECIMEN COLLECTED 01/27/21 15:06 Blood Culture - Preliminary Blood SPECIMEN COLLECTED A&P Assessment and plan (1) Pneumonia due to 2019-nCoV: Status: Acute (2) Acute respiratory failure with hypoxia: Status: Acute Additional A&P Information Hypoxia secondary to COVID-19 pneumonia: Moderate to severe disease. Oxygen supplementation keeping saturation over 88%. Dexamethasone 6 mg daily. Remdesivir to finish a 5-day course. Vitamin C, zinc. DuoNebs, budesonide twice daily Pulmonary toilet with incentive spirometry flutter valve. We will monitor inflammatory markers including ferritin, ESR, CRP, D-dimer, fibrinogen. CRP trending down today. If getting elevated will dose Actemra. Patient was made aware of the same and he has given verbal consent. D-dimer elevated. CTA negative for pulmonary embolism. Continue to monitor D- dimer every 48 hourly. For now continue with full dose anticoagulation given severe hypoxia. Switch to Eliquis 5 mg twice daily. Will monitor for anemia or blood loss. Sputum culture pending, procalcitonin elevated, urine bacterial antigen negative. Blood cultures so far negative. MRSA culture pending. Suspicion for community-acquired pneumonia. For now continue with IV ceftriaxone and azithromycin. Given hypoxia will try to keep patient as negative as possible. Patient clinically dehydrated for now. Check echocardiogram, IV Lasix 40 mg once. Strict input output charting, daily weights. High blood pressure: Past medical history of hypertension. Not on home medication. Start on amlodipine 5 mg daily. Goal blood pressure less than 140/90 mmHg. If needed will uptitrate medications. Full code. Protonix for PUD prophylaxis. Eliquis will help with DVT prophylaxis. Mechanical soft diet. Plan for day: Continue with oxygen supplementation. Try to wean keeping saturation of 88%. Continue with dexamethasone, IV remdesivir. Aggressive pulmonary toilet. Echocardiogram. IV Lasix 40 mg once. Switch to Eliquis 5 mg twice daily. Mechanical soft diet. Attestations Medical Necessity Statement*: Requires further hospitalization for hypoxic respiratory failure secondary to COVID-19 pneumonia Time Spent in Patient Care: Greater than 35 minutes (>than 50% of time spent in counselling and/or direct pt care on unit) . Coding Level of Care Code Acute Custom Protection Officer for [facility] Fw Diagnoses Pneumonia due to 2019-nCoV U07.1; J12.82 Acute respiratory failure with hypoxia J96.01
--- NOTE | 2021-01-28 14:31 | USCV_ITS ---
Amy Tovar Age: 65 Gender: F : 1955 Exam Date: 01/28/2021 15:02 Ordering Phys: Joe Burch MD Technologist: CHRISTOPHER [place] [facility] [place]: hypoxia, cardiomegaly, chf BP: 167 / 111 HR: 84 Rhythm: Sinus Technical Quality: Adequate MEASUREMENTS (Male / Female) Normal Values 2D ECHO LV Diastolic Diameter PLAX 3.5 cm 4.2 - 5.9 / 3.9 - 5.3 cm LV Systolic Diameter PLAX 2.2 cm IVS Diastolic Thickness 1.0 cm 0.6 - 1.0 / 0.6 - 0.9 cm IVS Systolic Thickness 1.6 cm LVPW Diastolic Thickness 1.2 cm 0.6 - 1.0 / 0.6 - 0.9 cm LVPW Systolic Thickness 1.7 cm LVOT Diameter 2.0 cm LV Ejection Fraction 2D Teich 66.6 % LV Ejection Fraction MOD 2C 61.6 % LV Ejection Fraction 2C AL 68.5 % LA Diameter 3.2 cm LA Width 3.6 cm LA Height 5.5 cm RA Width 4.0 cm RA Height 4.8 cm Aorta at Sinotubular Diameter 2.5 cm M-MODE Aortic Annulus Diameter 3.0 cm LA Ao Ratio MM 1.1 MV E Point Septal Separation 0.6 cm DOPPLER AV Peak Velocity 214.0 cm/s LVOT Peak Velocity 124.7 cm/s AV Area Cont Eq vti 1.9 cm squared AV Area Cont Eq pk 1.8 cm squared MV Area PHT 4.0 cm squared Mitral E to A Ratio 0.8 MV E' Velocity 48.2 cm/s Mitral E to MV E' Ratio 6.8 Mitral E to LV E' Lateral Ratio 8.3 Mitral E to LV E' Septal Ratio 5.7 TR Peak Velocity 248.8 cm/s TR Peak Gradient 24.8 mmHg TR Mean Velocity 202.5 cm/s TR Mean Gradient 16.8 mmHg TR Velocity Time Integral 60.8 cm RV Acceleration Time 0.1 s RV Ejection Time 0.3 s RV AcT/ET 0.3 FINDINGS Left Ventricle Normal left ventricular size and systolic function, EF 68 %. Mild left ventricular hypertrophy. No regional wall motion abnormalities. Grade I/IV diastolic dysfunction (abnormal relaxation filling pattern), normal to mildly elevated filling pressures. Right Ventricle The right ventricle is normal in size and function. Right Atrium The right atrium is normal in size. Left Atrium The left atrium is normal in size. Mitral Valve Thickened mitral valve. Aortic Valve Thickened aortic valve. Tricuspid Valve No gross abnormalities noted Pulmonic Valve No gross abnormalities noted Pericardium Normal pericardium without effusion. Aorta Mildly dilated aortic root with a diameter at the sinotubular junction of 3.8 cm CONCLUSIONS Normal left ventricular size and systolic function, EF 68 %. Mild left ventricular hypertrophy. No regional wall motion abnormalities. Grade I/IV diastolic dysfunction (abnormal relaxation filling pattern), normal to mildly elevated filling pressures. Minimally thickened aortic and mitral valves. Normal cardiac chamber sizes. No intracardiac masses No pericardial effusion Mildly dilated aortic root with a diameter at the sinotubular junction of 3.8 cm. No previous study is available for comparison. Dr Ascencion Paul MD FACC (Electronically Signed) Final Date: 28 January 2021 19:15 S
--- NOTE | 2021-01-28 16:30 | XR_ITS ---
WS: [id number] XR chest 1V portable [id number] REASON FOR EXAM: sob FINDINGS: Compared to the previous examination of 01/27/2021, there is been progression of the infiltrative gary nges in the right lower lung. Infiltrative changes in the left lung demonstrate no significant interval change. No new findings are identified. XR/XR chest 1V portable [id number] IMPRESSION: Progression of infiltrate in right lower lung.
[2021-01-28] MEDS: remdesivir 100 MG in sodium chloride 0.9% (100 ml) 100 ML IV (17:39)
[2021-01-28] MEDS: pantoprazole 40 mg SDV IVP (21:07)
[2021-01-28] MEDS: dexamethasone 4 mg/mL INJ 6 MG IVP (21:07)
[2021-01-28] MEDS: cefTRIAXone 1,000 MG in sodium chloride 0.9% (plus) 50 ML 100 MG IV (21:08)
[2021-01-28] MEDS: apixaban 5 mg Tablet PO (21:08)
[2021-01-29] VITALS (79 sets, daily range): BP systolic 101–160; BP diastolic 51–84; PULSE 54–84; RESP 15–95; TEMP 36.4–36.8; O2SAT 77–99
[2021-01-29] MEDS: morphine 4 mg/mL SDV 1 mL 2 MG IVP (03:53)
--- NOTE | 2021-01-29 04:21 | XRR_ITS ---
PROCEDURE INFORMATION: Exam: XR Chest Exam date and time: 01/29/2021 4:21 AM Age: 65 years old Clinical indication: Shortness of breath; Additional info: Increased SOB TECHNIQUE: Imaging protocol: XR of the chest. Views: 1 view. Total images: 1 COMPARISON: CR XR chest 1V portable [id number] 01/28/2021 4:23 PM FINDINGS: Lungs: Bilateral pulmonary opacities are again noted and appear unchanged. Pleural spaces: Unremarkable. No pleural effusion. No pneumothorax. Heart/Mediastinum: Heart size is stable when compared to the prior exam. Bones/joints: Osseous structures are unchanged from the prior exam. XR/XR chest 1V portable [id number] IMPRESSION: Bilateral pulmonary opacities are again noted and appear unchanged.
[2021-01-29 05:09] LABS: D Dimer 1.06 ug/mIFEU (0-0.59)
--- NOTE | 2021-01-29 05:14 | PC.NURSE ---
Shift note Until 0300 pt remained stable on 50L 60%. Pt then pivoted to commode and her oxygen quickly decreased into 70s and she became tachycardic. Pt became more anxious and oxygen levels were not coming back up. Pt had to be increased to 70L 85% and overtime her oxygen increased into the 90s. Pt was placed on precedex for anxiety and reports she is feeling better. Dr. Smith notified.
[2021-01-29 05:17] LABS: C Reactive Protein 106.6 mg/L (0.0-4.9)
[2021-01-29 06:47] LABS: Basophils % 0.3 %; Hematocrit 43.7 % (37.0-47.0); Hemoglobin 13.7 g/dL (11.5-15.3); Lymphocytes # 0.2 10^3/uL (0.8-4.8); Lymphocytes % 2.7 %; Mean Corpuscular HGB Conc 31.4 g/dL (30.0-36.0); Mean Corpuscular Hemoglobin 27.9 pg (28.0-34.0); Monocytes # 0.1 10^3/uL (0.2-0.9); Monocytes % 1.2 %; Neutrophils % 92.8 %; Nucleated Red Blood Cells % 0 %; Platelet Count 355 10^3/cmm (130-400); Red Blood Count 4.91 10^6/uL (4.1-5.3); Red Cell Distribution Width 14.6 % (12.1-15.1); White Blood Count 6.7 10^3/uL (4.0-10.0)
[2021-01-29 06:56] LABS: Alanine Aminotransferase 8 U/L (0-33); Albumin Level 3.2 g/dL (3.5-5.2); Alkaline Phosphatase 97 IU/L (35-105); Blood Urea Nitrogen 21 mg/dL (8-23); Calcium 8.2 mg/dL (8.5-10.5); Carbon Dioxide 18 mmol/L (22-29); Chloride 102 mmol/L (98-107); Globulin 3.4 g/dL (1.3-4.6); Glomerular Filtration Rate 100.6 mL/min (90-130); Glucose 144 mg/dL (65-115); Magnesium 1.9 mg/dL (1.7-2.3); Osmolality Calculated 296 mOsm/kg (285-295); Phosphorus 3.2 mg/dL (2.5-4.5); Sodium 140 mmol/L (136-145); Total Bilirubin 0.2 mg/dL (0.15-1.2); Total Protein 6.6 g/dL (6.6-8.7)
[2021-01-29 06:58] LABS: Anion Gap 23.6 (5-19); Aspartate Amino Transferase 12 U/L (0-32); Potassium 3.6 mmol/L (3.5-5.1)
[2021-01-29 07:56] LABS: Slide Review Slide Review Perform
[2021-01-29] MEDS: vancomycin 1,500 MG/300 ML PIGGYBACK 200 MG IV ×2 (07:57→20:04)
[2021-01-29] MEDS: piperacillin-tazobactam 3.375 GM in sodium chloride 0.9% (plus) 50 ML IV ×3 (07:57→23:34)
[2021-01-29] MEDS: ascorbic acid 500 mg Tablet PO ×2 (08:00→17:58)
[2021-01-29] MEDS: zinc gluconate 50 mg Tablet PO (08:00)
[2021-01-29] MEDS: ipratropium-albuterol 3 mL Neb INHALATION ×5 (08:00→23:47)
[2021-01-29] MEDS: apixaban 5 mg Tablet PO ×2 (08:00→20:04)
[2021-01-29] MEDS: HYDROcodone-acetaminophen 10-325 mg Tablet 1 TAB PO ×2 (08:00→16:27)
[2021-01-29] MEDS: amlodipine 5 mg Tablet PO (08:00)
[2021-01-29] MEDS: benzonatate 100 mg Capsule PO ×2 (08:00→16:19)
--- NOTE | 2021-01-29 09:45 | PC.CHAP ---
Pastoral Care Encounter/Spiritual Assessment Type of Contact [] Declined mail examiner visit [] Patient/Family/Request visit [] Outpatient visit [] Follow-up visit [] Physician referral [] Code/Alert [x] Routine visit [] Staff referral [] Actively dying [] Patient sleeping [] Family support [] [] Out of room [] Palliative care [] [] Receiving care in room [] Pre-surgical visit [] Trauma [] Long length of stay [x] ICU visit [] Other: Relational/Emotional Strength [] Patient feels connected with others/family/visitors/staff [] Distress [] Loneliness/isolation [] Abandonment Spirituality of Patient [] Person of Chetna [] Attends Confucianist of their [place] [] Believes in Prayer [] Reads Bible or Sikhism materials [] There are Spiritual issues to be addressed Chain Tender Interventions [x] Prayer [] Active listening [] Non-anxious presence [] Spiritual/emotional support [] Crisis/trauma care [] Spiritual counseling [] Bereavement support [] Provided bereavement packet [] Provided Bible/devotional materials [] Provided toy/stuffed animal, coloring book to patient or family member [] Provided Communion [] Anointing/[place] [] Salvation [x] Completed spiritual assessment [] Other: Impact on Illness or Injury [] Angry [] Fearful [] Anxious [] Often cries [] Exhaustion [] Unable to work [] Unable to attend anabaptism [] Unable to walk/stand [] Unable to read [] Unable to drive [] Unable to eat/drink [] Unable to sleep [] Unable to be with family [] Patient intubated [] Other: Summary patient enjoying breakfast... looking forward to returning home Time spent with patient 5 min
[2021-01-29 10:16] LABS: NT Pro B Type Natriuretic Pept 191 pg/mL (0-125)
[2021-01-29] MEDS: FUROsemide 10 mg/mL SDV 4mL 40 MG IVP (11:27)
[2021-01-29] MEDS: budesonide 0.5 mg/2 mL Neb INHALATION ×2 (11:29→20:30)
--- NOTE | 2021-01-29 17:09 | PM.PN ---
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 During the day oxygen supplementation was weaned down to 45 L 65% with saturations maintaining over 90 with 1 episode of desaturation. Patient remained comfortable. Not working with I-S and Acapella for now. Patient verbalized understanding and will start today. States she is feeling better. States appetite is better. Denies any nausea, vomiting, headache. Complaining of cough on minimal exertion. Vitals/I&O/Wt Last Vital Signs Temp 98.3 F 01/29/21 09:05 Pulse 68 01/29/21 15:57 Resp 22 H 01/29/21 15:45 BP 131/62 01/29/21 12:55 Pulse Ox 90 01/29/21 15:45 01/29/21 01/29/21 01/29/21 06:59 14:59 22:59 Intake Total 400 / 1650 450 / 450 Output Total 650 / 3650 Balance -250 / -2000 450 / 450 Weight last 48 hrs Weight 99.337 kg Weight 102.965 kg Weight 104.326 kg Physical Exam Narrative: EXAM NARRATIVE: General: AO x3, in no acute distress, less tachypneic HEENT: PERRLA, pupils bilaterally equal and reactive Chest: Diffuse crackles present all over the lung ramirez, rhonchi present all over the lung ramirez, equal good air entry bilaterally CVS: S1-S2 regular, no murmurs, no tachycardia, no gallops, no rubs Abdomen: Soft, nontender, no organomegaly, bowel sounds present Neuro: No focal deficits, no facial deformity, AO x3, power 5/5 in all limbs Urinary Catheter Management^: Estrada: Cath Placed During This Visit: yes Urinary Catheter Date of Insertion: 01/27/21 Urinary Catheter Time of Insertion: 17:16 Data : 01/29/21 04:24 01/29/21 04:24 Micro: Microbiology 01/28/21 17:55 Gram Stain - Final Sputum - Expectorated Sputum 01/27/21 Unknown Blood Culture - Preliminary Blood NEGATIVE TO DATE 01/27/21 16:49 MRSA Culture - Final Nose 01/27/21 15:06 Blood Culture - Preliminary Blood NEGATIVE TO DATE A&P Assessment and plan (1) Pneumonia due to 2019-nCoV: Status: Acute (2) Acute respiratory failure with hypoxia: Status: Acute Additional A&P Information Hypoxia secondary to COVID-19 pneumonia: Moderate to severe disease. Oxygen supplementation keeping saturation over 88%. Dexamethasone 6 mg daily. Remdesivir to finish a 5-day course. Vitamin C, zinc. DuoNebs, budesonide twice daily Pulmonary toilet with incentive spirometry flutter valve. We will monitor inflammatory markers including ferritin, ESR, CRP, D-dimer, fibrinogen. CRP trending down today. If getting elevated will dose Actemra. Patient was made aware of the same and he has given verbal consent. D-dimer elevated. CTA negative for pulmonary embolism. Continue to monitor D-dimer every 48 hourly. For now continue with full dose anticoagulation given severe hypoxia. Continue with Eliquis 5 mg twice daily. Will monitor for anemia or blood loss. Sputum culture pending, procalcitonin elevated, urine bacterial antigen negative. Blood cultures so far negative. MRSA negative. For now switch from ceftriaxone and azithromycin to vancomycin, Zosyn, Levaquin as patient is requiring higher oxygen supplementation. Can discontinue vancomycin early depending on clinical picture as MRSA is negative. Given hypoxia will try to keep patient as negative as possible. Patient clinically dehydrated for now. Echocardiogram results appreciated. IV Lasix today. Strict input output charting, daily weights. High blood pressure: Past medical history of hypertension. Not on home medication. Continue with amlodipine 5 mg daily. Goal blood pressure less than 140/90 mmHg. If needed will uptitrate medications. Full code. Protonix for PUD prophylaxis. Eliquis will help with DVT prophylaxis. Mechanical soft diet. Plan for day: Aggressive pulmonary toilet with I-S and Acapella. Echocardiogram results appreciated. Continue with IV remdesivir, dexamethasone. Switch antibiotics to vancomycin and Zosyn along with Levaquin for broader coverage given higher oxygen requirements. Attestations Medical Necessity Statement*: Requires further hospitalization for management of hypoxic respiratory failure secondary to COVID-19 pneumonia Time Spent in Patient Care: Greater than 35 minutes (>than 50% of time spent in counselling and/or direct pt care on unit). 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
[2021-01-29] MEDS: remdesivir 100 MG in sodium chloride 0.9% (100 ml) 100 ML 60 MG IV (17:57)
[2021-01-29] MEDS: pantoprazole 40 mg SDV IVP (20:04)
[2021-01-29] MEDS: benzonatate 100 mg Capsule 200 MG PO (20:04)
[2021-01-29] MEDS: dexamethasone 4 mg/mL INJ 6 MG IVP (20:04)
[2021-01-30] VITALS (30 sets, daily range): BP systolic 107–157; BP diastolic 67–88; PULSE 54–113; RESP 14–28; TEMP 36.3–36.9; O2SAT 89–97
[2021-01-30] MEDS: ipratropium-albuterol 3 mL Neb INHALATION ×6 (04:00→23:16)
--- NOTE | 2021-01-30 04:12 | PC.NURSE ---
Shift Note Frequent safety and comfort rounds continue. Pt had a few episodes of anxiety tonight resulting in her oxygen needs to increase. Precedex was titrated accordingly, see MAR. Orders and nursing care completed as indicated. Patient monitored for response to intervention and treatment. Education provided includes oxygen safety. Patient verbalized understanding.
[2021-01-30 04:24] LABS: Basophils % 0.2 %; Hematocrit 37.8 % (37.0-47.0); Lymphocytes # 0.1 10^3/uL (0.8-4.8); Lymphocytes % 2.3 %; Mean Corpuscular HGB Conc 31.7 g/dL (30.0-36.0); Mean Corpuscular Hemoglobin 27.6 pg (28.0-34.0); Mean Corpuscular Volume 87.1 fl (81-99); Mean Platelet Volume 9.8 fL (7.4-10.4); Monocytes # 0.1 10^3/uL (0.2-0.9); Monocytes % 1.3 %; Neutrophils # 4.81 10^3/uL (1.8-7.7); Nucleated Red Blood Cells % 0 %; Platelet Count 367 10^3/cmm (130-400); Red Blood Count 4.34 10^6/uL (4.1-5.3); White Blood Count 5.2 10^3/uL (4.0-10.0)
[2021-01-30 04:52] LABS: Alanine Aminotransferase 7 U/L (0-33); Albumin Level 2.9 g/dL (3.5-5.2); Alkaline Phosphatase 83 IU/L (35-105); Aspartate Amino Transferase 10 U/L (0-32); Blood Urea Nitrogen 15 mg/dL (8-23); Carbon Dioxide 21 mmol/L (22-29); Chloride 103 mmol/L (98-107); Globulin 3.7 g/dL (1.3-4.6); Glomerular Filtration Rate 100.6 mL/min (90-130); Glucose 179 mg/dL (65-115); Osmolality Calculated 301 mOsm/kg (285-295); Sodium 143 mmol/L (136-145); Total Bilirubin 0.2 mg/dL (0.15-1.2); Total Protein 6.6 g/dL (6.6-8.7)
[2021-01-30] MEDS: levoFLOXacin 500 mg Tablet PO (05:59)
[2021-01-30] MEDS: lidocaine 1% 5 ML in potassium chloride premix 100 ML 25 ML IV (06:01)
[2021-01-30] MEDS: lidocaine 1% 5 ML in potassium chloride premix 100 ML 50 ML IV (06:02)
[2021-01-30 07:46] LABS: Vancomycin Trough 13.9 ug/mL (10-15)
[2021-01-30] MEDS: piperacillin-tazobactam 3.375 GM in sodium chloride 0.9% (plus) 50 ML IV ×3 (08:00→23:23)
[2021-01-30] MEDS: vancomycin 1,500 MG/300 ML PIGGYBACK 200 MG IV (08:01)
[2021-01-30] MEDS: budesonide 0.5 mg/2 mL Neb INHALATION ×2 (08:16→20:13)
[2021-01-30] MEDS: benzonatate 100 mg Capsule 200 MG PO ×3 (09:14→21:13)
[2021-01-30] MEDS: zinc gluconate 50 mg Tablet PO (09:14)
[2021-01-30] MEDS: ascorbic acid 500 mg Tablet PO ×2 (09:14→17:27)
[2021-01-30] MEDS: nystatin 100,000 unit/mL UDC 5 mL 100000 UNIT PO ×4 (09:14→21:12)
[2021-01-30] MEDS: apixaban 5 mg Tablet PO ×2 (09:14→21:13)
[2021-01-30] MEDS: amlodipine 5 mg Tablet PO (09:14)
[2021-01-30] MEDS: dexamethasone 4 mg/mL INJ 6 MG IVP ×2 (10:06→23:23)
[2021-01-30 11:50] LABS: Glucose Point of Care 95 mg/dL (70-110)
--- NOTE | 2021-01-30 12:35 | PM.PN ---
Subjective Subjective: Interval history: No complaints overnight. Patient has remained hemodynamically stable. Continues to remain on Precedex of 0.2. Had to be turned up overnight slightly for mild anxiety up to 0.4. On examination denies any nausea, vomiting, headache. States it is difficult to swallow soft food for now because of difficulty in breathing. Continues to remain on 65 L 65% saturating 95%. Looks mildly tachypneic. We again discussed the importance of I-S and Acapella. During examination patient starts doing I-S and Acapella and is doing up to 500-7 50 with I-S. Encouraged her to continue doing during the day every couple of hours 5-7 times. We again discussed that we are trying to hold off on intubation as much as we can. Patient verbalized understanding. Vitals/I&O/Wt Last Vital Signs Temp 97.8 F 01/30/21 04:00 Pulse 70 01/30/21 11:33 Resp 26 H 01/30/21 11:33 BP 121/80 01/30/21 04:00 Pulse Ox 92 01/30/21 11:33 01/29/21 01/30/21 01/30/21 22:59 06:59 14:59 Intake Total 658.149 / 1433.149 566.851 / 2000.000 Output Total 1700 / 1700 800 / 2500 Balance -1041.851 / -266.851 -233.149 / -500.000 Weight last 48 hrs Weight 98.656 kg Weight 99.337 kg Physical Exam Narrative: EXAM NARRATIVE: General: AO x3, in no acute distress, tachypneic, not using accessory muscles HEENT: PERRLA, pupils bilaterally equal and reactive Chest: Diffuse crackles present all over the lung ramirez, rhonchi present all over the lung ramirez, equal good air entry bilaterally CVS: S1-S2 regular, no murmurs, no tachycardia, no gallops, no rubs Abdomen: Soft, nontender, no organomegaly, bowel sounds present Neuro: No focal deficits, no facial deformity, AO x3, power 5/5 in all limbs Urinary Catheter Management^: Estrada: Cath Placed During This Visit: yes Urinary Catheter Date of Insertion: 01/27/21 Urinary Catheter Time of Insertion: 17:16 Data : 01/30/21 03:59 01/30/21 03:59 Micro: Microbiology 01/28/21 17:55 Gram Stain - Final Sputum - Expectorated Sputum Sputum Culture - Preliminary A&P Assessment and plan (1) Pneumonia due to 2019-nCoV: 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 Check EPI levels. Status: Chronic Additional A&P Information Hypoxia secondary to COVID-19 pneumonia: Severe disease. Oxygen supplementation keeping saturation over 88%. Dexamethasone 6 mg twice daily. For now we will increase the steroids given history of sarcoidosis in the past. Remdesivir to finish a 5-day course. Vitamin C, zinc. DuoNebs, budesonide twice daily Pulmonary toilet with incentive spirometry flutter valve. We will monitor inflammatory markers including ESR, D-dimer every 48 hourly. CRP trending down today. If getting elevated will dose Actemra. Patient was made aware of the same and he has given verbal consent. D-dimer elevated. CTA negative for pulmonary embolism. Continue to monitor D-dimer every 48 hourly. For now continue with full dose anticoagulation given severe hypoxia. Continue with Eliquis 5 mg twice daily. Will monitor for anemia or blood loss. Sputum culture pending, procalcitonin elevated, urine bacterial antigen negative. Blood cultures so far negative. MRSA negative. Continue with Zosyn, Levaquin. Stop vancomycin. Given hypoxia will try to keep patient as negative as possible. Patient clinically dehydrated for now. Echocardiogram results appreciated. Hold off on IV Lasix today. Patient net negative since admission. Strict input output charting, daily weights. Nystatin swish and swallow. Lanoilin. Sliding scale at low-dose protocol before meals and at bedtime. High blood pressure: Past medical history of hypertension. Not on home medication. Continue with amlodipine 5 mg daily. Goal blood pressure less than 140/90 mmHg. If needed will uptitrate medications. Full code. Protonix for PUD prophylaxis. Eliquis will help with DVT prophylaxis. Full liquid diet with boost. Given a tenuous respiratory status patient is at a high risk of intubation. We will try to hold off as long as possible. Discussed in detail with the patient. She verbalized understanding. We will try to give call to the over the phone. Number in the chart seems to be not working. Will request for a repeat number from the patient. Guarded prognosis. Plan for day: Aggressive pulmonary toilet with I-S and Acapella. Echocardiogram results appreciated. Continue with IV remdesivir, dexamethasone. Switch antibiotics to vancomycin and Zosyn along with Levaquin for broader coverage given higher oxygen requirements. Attestations Medical Necessity Statement*: Requires further hospitalization for management of acute hypoxic respiratory failure in setting of COVID-19 pneumonia Critical Care Time: The high probability of a clinically significant, sudden or life threatening deterioration of the patient's [pulmonary] system(s) required my full and direct attention, intervention and personal management. The critical care time is as shown. This time is in addition to time spent performing any reported procedures but includes the following: [x] Data and vital sign review and interpretation [x] Patient assessment, examination and intervention [x] Documentation [x] Medication orders and management Critical Care Time (min): 80 Coding Level of Care Code Acute Hydrogen Treater for [facility] Fwd Diagnoses Pneumonia due to 2019-nCoV U07.1; J12.82 Acute respiratory failure with hypoxia J96.01 Sarcoidosis, lung D86.0
--- NOTE | 2021-01-30 14:14 | PC.NUTR ---
Nutrition assessment completed per nurse request. Meal preferences/tolerance obtained from pt. Prefers limited high-CHO foods r/t hx gastric bypass. Also prefers to avoid dairy, reports lactose intolerance. Dislikes soy or almond milk, dislikes majority of nutritional supplements. Recommend: 1) Resume mechanical soft diet per pt preference 2) Prosource gelatein at breakfast 3) Boost Breeze + 1 scoop Beneprotein at lunch and supper. See full RD assessment for further details.
--- NOTE | 2021-01-30 16:30 | XRR_ITS ---
PROCEDURE INFORMATION: Exam: XR Chest Exam date and time: 01/30/2021 4:30 PM Age: 65 years old Clinical indication: Shortness of breath; Additional info: SOB TECHNIQUE: Imaging protocol: XR of the chest. Views: 1 view. COMPARISON: CR (CHEST, ) 01/29/2021 6:03 AM FINDINGS: Lungs: Redemonstration of bilateral pulmonary consolidations. No significant interval change. Pleural spaces: Unremarkable. No pleural effusion. No pneumothorax. Heart/Mediastinum: Stable heart size. Bones/joints: Visualized osseous structures are intact. XR/XR chest 1V portable [id number] IMPRESSION: Bilateral pulmonary consolidations, no significant interval change.
[2021-01-30] MEDS: remdesivir 100 MG in sodium chloride 0.9% (100 ml) 100 ML IV (17:28)
[2021-01-30] MEDS: HYDROcodone-acetaminophen 10-325 mg Tablet 1 TAB PO ×2 (17:38→23:45)
[2021-01-30 17:46] LABS: Glucose Point of Care 130 mg/dL (70-110)
[2021-01-30] MEDS: pantoprazole 40 mg SDV IVP (21:13)
[2021-01-30] MEDS: insulin lispro 100 unit/1 mL SUBCUT (21:13)
[2021-01-31] VITALS (45 sets, daily range): BP systolic 115–166; BP diastolic 63–98; PULSE 62–113; RESP 14–24; TEMP 36.6–36.9; O2SAT 87–98
[2021-01-31] MEDS: ipratropium-albuterol 3 mL Neb INHALATION ×5 (03:09→19:55)
--- NOTE | 2021-01-31 04:16 | PC.NURSE ---
Shift Note Frequent safety and comfort rounds continue. Pt repositioned as requested. Orders and nursing care completed as indicated. Pt did not experience any anxious episodes throughout the night. Patient monitored for response to intervention and treatment. Education provided includes oxygen safety. Patient verbalized understanding.
[2021-01-31] MEDS: levoFLOXacin 500 mg Tablet PO (05:18)
[2021-01-31] MEDS: HYDROcodone-acetaminophen 10-325 mg Tablet 1 TAB PO ×3 (05:28→20:31)
[2021-01-31 06:34] LABS: Basophils % 0.1 %; Eosinophils % 0.1 %; Hematocrit 39.9 % (37.0-47.0); Hemoglobin 12.2 g/dL (11.5-15.3); Lymphocytes # 0.2 10^3/uL (0.8-4.8); Lymphocytes % 1.7 %; Mean Corpuscular HGB Conc 30.6 g/dL (30.0-36.0); Mean Corpuscular Hemoglobin 26.8 pg (28.0-34.0); Mean Corpuscular Volume 87.5 fl (81-99); Mean Platelet Volume 10.1 fL (7.4-10.4); Monocytes # 0.2 10^3/uL (0.2-0.9); Monocytes % 1.9 %; Neutrophils # 8.22 10^3/uL (1.8-7.7); Neutrophils % 91.5 %; Nucleated Red Blood Cells % 0 %; Platelet Count 526 10^3/cmm (130-400); Red Blood Count 4.56 10^6/uL (4.1-5.3); Red Cell Distribution Width 14.3 % (12.1-15.1)
[2021-01-31 06:55] LABS: Alanine Aminotransferase 8 U/L (0-33); Albumin Level 3.1 g/dL (3.5-5.2); Alkaline Phosphatase 89 IU/L (35-105); Aspartate Amino Transferase 11 U/L (0-32); Blood Urea Nitrogen 13 mg/dL (8-23); Calcium 8.2 mg/dL (8.5-10.5); Carbon Dioxide 20 mmol/L (22-29); Chloride 105 mmol/L (98-107); Globulin 3.9 g/dL (1.3-4.6); Glomerular Filtration Rate 100.6 mL/min (90-130); Glucose 141 mg/dL (65-115); Osmolality Calculated 288 mOsm/kg (285-295); Sodium 138 mmol/L (136-145); Total Bilirubin 0.2 mg/dL (0.15-1.2)
[2021-01-31 07:17] LABS: C Reactive Protein 34.3 mg/L (0.0-4.9)
[2021-01-31] MEDS: budesonide 0.5 mg/2 mL Neb INHALATION ×2 (07:47→19:55)
[2021-01-31 07:53] LABS: Glucose Point of Care 147 mg/dL (70-110)
[2021-01-31] MEDS: piperacillin-tazobactam 3.375 GM in sodium chloride 0.9% (plus) 50 ML IV ×3 (08:09→22:36)
[2021-01-31 08:25] LABS: Glucose Point of Care 120 mg/dL (70-110)
[2021-01-31] MEDS: apixaban 5 mg Tablet PO ×2 (09:14→20:32)
[2021-01-31] MEDS: benzonatate 100 mg Capsule 200 MG PO ×3 (09:14→20:30)
[2021-01-31] MEDS: zinc gluconate 50 mg Tablet PO (09:14)
[2021-01-31] MEDS: ascorbic acid 500 mg Tablet PO ×2 (09:14→17:42)
[2021-01-31] MEDS: nystatin 100,000 unit/mL UDC 5 mL 100000 UNIT PO ×4 (09:14→20:30)
[2021-01-31] MEDS: amlodipine 5 mg Tablet PO (09:14)
[2021-01-31 10:03] LABS: D Dimer 1.46 ug/mIFEU (0-0.59)
[2021-01-31] MEDS: ALPRAZolam 0.5 mg Tablet PO (11:27)
[2021-01-31] MEDS: dexamethasone 4 mg/mL INJ 6 MG IVP ×2 (11:27→22:36)
[2021-01-31 11:51] LABS: Glucose Point of Care 105 mg/dL (70-110)
[2021-01-31] MEDS: potassium chloride oral liq 20 mEq/15 mL UDC 40 MEQ PO ×2 (12:37→16:44)
--- NOTE | 2021-01-31 15:05 | PM.PN ---
Subjective Subjective: Interval history: No acute events overnight. Patient has remained hemodynamically stable and afebrile. Today morning sitting up in chair. States feeling little better. Able to have her appetite. Oxygen supplementation coming down slightly. Vitals/I&O/Wt Last Vital Signs Temp 98.1 F 01/31/21 04:00 Pulse 112 H 01/31/21 13:50 Resp 16 01/31/21 11:23 BP 126/74 01/31/21 06:00 Pulse Ox 89 L 01/31/21 11:23 01/31/21 01/31/21 01/31/21 06:59 14:59 22:59 Intake Total 50 / 1755 50 / 50 Output Total 1000 / 3000 Balance -950 / -1245 50 / 50 Weight last 48 hrs Weight 99.473 kg Weight 98.656 kg Physical Exam Narrative: EXAM NARRATIVE: General: AO x3, in no acute distress, tachypneic but lesser than yesterday, not using accessory muscles HEENT: PERRLA, pupils bilaterally equal and reactive Chest: Diffuse crackles present all over the lung ramirez, rhonchi present all over the lung ramirez, equal good air entry bilaterally CVS: S1-S2 regular, no murmurs, no tachycardia, no gallops, no rubs Abdomen: Soft, nontender, no organomegaly, bowel sounds present Neuro: No focal deficits, no facial deformity, AO x3, power 5/5 in all limbs Urinary Catheter Management^: Estrada: Cath Placed During This Visit: yes Urinary Catheter Date of Insertion: 01/27/21 Urinary Catheter Time of Insertion: 17:16 Data : 01/31/21 05:50 01/31/21 05:50 Micro: Microbiology 01/28/21 17:55 Gram Stain - Final Sputum - Expectorated Sputum Sputum Culture - Final A&P Assessment and plan (1) Pneumonia due to 2019-nCoV: 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 Check EPI levels. Status: Chronic Additional A&P Information Hypoxia secondary to COVID-19 pneumonia: Severe disease. Oxygen supplementation keeping saturation over 88%. Dexamethasone 6 mg twice daily. For now we will increase the steroids given history of sarcoidosis in the past. Remdesivir to finish a 5-day course. Vitamin C, zinc. DuoNebs, budesonide twice daily Pulmonary toilet with incentive spirometry flutter valve. We will monitor inflammatory markers including ESR, D-dimer every 48 hourly. CRP trending down today. If getting elevated will dose Actemra. Patient was made aware of the same and he has given verbal consent. D-dimer elevated. CTA negative for pulmonary embolism. Continue to monitor D-dimer every 48 hourly. For now continue with full dose anticoagulation given severe hypoxia. Continue with Eliquis 5 mg twice daily. Will monitor for anemia or blood loss. Sputum culture pending, procalcitonin elevated, urine bacterial antigen negative. Blood cultures so far negative. MRSA negative. Continue with Zosyn, Levaquin. Stop vancomycin. Given hypoxia will try to keep patient as negative as possible. Patient clinically dehydrated for now. Echocardiogram results appreciated. Hold off on IV Lasix today. Patient net negative since admission. Strict input output charting, daily weights. Nystatin swish and swallow. Lanoilin. Sliding scale at low-dose protocol before meals and at bedtime. High blood pressure: Past medical history of hypertension. Not on home medication. Continue with amlodipine 5 mg daily. Goal blood pressure less than 140/90 mmHg. If needed will uptitrate medications. Full code. Protonix for PUD prophylaxis. Eliquis will help with DVT prophylaxis. Full liquid diet with boost. Given a tenuous respiratory status patient is at a high risk of intubation. We will try to hold off as long as possible. Discussed in detail with the patient. She verbalized understanding. We will try to give call to the over the phone. Number in the chart seems to be not working. Will request for a repeat number from the patient. Guarded prognosis. Plan for day: Aggressive pulmonary toilet with I-S and Acapella. Out of bed to chair. Replace potassium. Start on Xanax 0.5 3 times daily as needed along with Celexa 20 mg oral daily for anxiety. Continue with Levaquin till 02/02. Continue with Zosyn. Stop vancomycin. Last day of remdesivir today. Attestations Medical Necessity Statement*: Requires further hospitalization for management of hypoxic respiratory failure secondary to COVID-19 pneumonia and history of sarcoidosis of lung Time Spent in Patient Care: Greater than 35 minutes (>than 50% of time spent in counselling and/or direct pt care on unit). Coding Level of Care Code Acute Furnace Erector for [facility] Fwd Diagnoses Pneumonia due to 2019-nCoV U07.1; J12.82 Acute respiratory failure with hypoxia J96.01 Sarcoidosis, lung D86.0
[2021-01-31 15:06] LABS: Angiotensin Converting Enzyme 16 U/L (9-67)
[2021-01-31] MEDS: citalopram 20 mg Tablet 30 MG PO (15:13)
[2021-01-31] MEDS: morphine 4 mg/mL SDV 1 mL 2 MG IVP (15:15)
[2021-01-31 16:57] LABS: Glucose Point of Care 160 mg/dL (70-110)
[2021-01-31] MEDS: insulin lispro 100 unit/1 mL SUBCUT (17:42)
[2021-01-31] MEDS: remdesivir 100 MG in sodium chloride 0.9% (100 ml) 100 ML IV (17:43)
[2021-01-31 20:21] LABS: Glucose Point of Care 126 mg/dL (70-110)
[2021-01-31] MEDS: pantoprazole 40 mg SDV IVP (20:31)
[2021-02-01] VITALS (37 sets, daily range): BP systolic 116–156; BP diastolic 62–90; PULSE 57–141; RESP 15–33; TEMP 36.7–36.8; O2SAT 77–100
[2021-02-01] MEDS: ipratropium-albuterol 3 mL Neb INHALATION ×7 (00:01→23:56)
[2021-02-01 04:38] LABS: Basophils % 0.2 %; Hematocrit 41.3 % (37.0-47.0); Hemoglobin 12.8 g/dL (11.5-15.3); Lymphocytes # 0.3 10^3/uL (0.8-4.8); Lymphocytes % 2.7 %; Mean Corpuscular Hemoglobin 27.5 pg (28.0-34.0); Mean Corpuscular Volume 88.6 fl (81-99); Mean Platelet Volume 10.7 fL (7.4-10.4); Monocytes # 0.2 10^3/uL (0.2-0.9); Monocytes % 1.8 %; Neutrophils # 11.33 10^3/uL (1.8-7.7); Neutrophils % 89.4 %; Nucleated Red Blood Cells % 0 %; Platelet Count 572 10^3/cmm (130-400); Red Blood Count 4.66 10^6/uL (4.1-5.3); Red Cell Distribution Width 14.8 % (12.1-15.1); White Blood Count 12.7 10^3/uL (4.0-10.0)
[2021-02-01 04:57] LABS: Procalcitonin 0.19 ng/mL (0-0.5)
[2021-02-01 05:11] LABS: Alanine Aminotransferase 10 U/L (0-33); Albumin Level 3.1 g/dL (3.5-5.2); Alkaline Phosphatase 85 IU/L (35-105); Aspartate Amino Transferase 13 U/L (0-32); Blood Urea Nitrogen 17 mg/dL (8-23); C Reactive Protein 15.5 mg/L (0.0-4.9); Calcium 8.1 mg/dL (8.5-10.5); Carbon Dioxide 16 mmol/L (22-29); Chloride 107 mmol/L (98-107); Globulin 3.7 g/dL (1.3-4.6); Glomerular Filtration Rate 100.6 mL/min (90-130); Glucose 135 mg/dL (65-115); Osmolality Calculated 292 mOsm/kg (285-295); Sodium 139 mmol/L (136-145); Total Bilirubin 0.2 mg/dL (0.15-1.2); Total Protein 6.8 g/dL (6.6-8.7)
[2021-02-01 05:18] LABS: Anion Gap 20.5 (5-19); Potassium 4.5 mmol/L (3.5-5.1)
[2021-02-01 05:40] LABS: Slide Review Slide Review Perform
[2021-02-01] MEDS: levoFLOXacin 500 mg Tablet PO (06:01)
[2021-02-01] MEDS: budesonide 0.5 mg/2 mL Neb INHALATION ×2 (07:39→19:40)
[2021-02-01] MEDS: piperacillin-tazobactam 3.375 GM in sodium chloride 0.9% (plus) 50 ML IV ×3 (07:39→22:34)
[2021-02-01 07:51] LABS: Glucose Point of Care 115 mg/dL (70-110)
[2021-02-01] MEDS: HYDROcodone-acetaminophen 10-325 mg Tablet 1 TAB PO ×3 (07:54→21:17)
[2021-02-01] MEDS: nystatin 100,000 unit/mL UDC 5 mL 100000 UNIT PO ×4 (09:07→21:16)
[2021-02-01] MEDS: citalopram 20 mg Tablet 30 MG PO (09:07)
[2021-02-01] MEDS: ascorbic acid 500 mg Tablet PO ×2 (09:08→17:38)
[2021-02-01] MEDS: zinc gluconate 50 mg Tablet PO (09:08)
[2021-02-01] MEDS: benzonatate 100 mg Capsule 200 MG PO ×3 (09:08→21:16)
[2021-02-01] MEDS: amlodipine 5 mg Tablet PO (09:08)
[2021-02-01] MEDS: apixaban 5 mg Tablet PO ×2 (09:09→21:16)
[2021-02-01] MEDS: dexamethasone 4 mg/mL INJ 6 MG IVP ×2 (10:52→21:17)
[2021-02-01 11:08] LABS: Glucose Point of Care 104 mg/dL (70-110)
[2021-02-01] MEDS: FUROsemide 10 mg/mL SDV 4mL 40 MG IVP (11:49)
--- NOTE | 2021-02-01 15:18 | PM.PN ---
Subjective Subjective: Interval history: No acute event overnight. Patient today feeling very tired. Continues to improve. During the day was transitioned over to 10 L high flow nasal cannula saturating more than 90%. Denies any nausea, vomiting, headache. Vitals/I&O/Wt Last Vital Signs Temp 98.0 F 02/01/21 07:00 Pulse 102 H 02/01/21 12:51 Resp 17 02/01/21 11:15 BP 136/82 02/01/21 08:00 Pulse Ox 91 02/01/21 12:51 02/01/21 02/01/21 02/01/21 06:59 14:59 22:59 Intake Total 290 / 1730 350 / 350 Output Total 850 / 1250 Balance -560 / 480 350 / 350 Weight last 48 hrs Weight 98.543 kg Weight 99.473 kg Physical Exam Narrative: EXAM NARRATIVE: General: AO x3, in no acute distress, tachypneic but lesser than yesterday, not using accessory muscles HEENT: PERRLA, pupils bilaterally equal and reactive Chest: Diffuse crackles present all over the lung ramirez, rhonchi present all over the lung ramirez, equal good air entry bilaterally CVS: S1-S2 regular, no murmurs, no tachycardia, no gallops, no rubs Abdomen: Soft, nontender, no organomegaly, bowel sounds present Neuro: No focal deficits, no facial deformity, AO x3, power 5/5 in all limbs Urinary Catheter Management^: Estrada: Cath Placed During This Visit: yes Urinary Catheter Date of Insertion: 01/27/21 Urinary Catheter Time of Insertion: 17:16 Data : 02/01/21 04:05 02/01/21 04:05 Micro: Microbiology 01/27/21 15:06 Blood Culture - Final Blood NO GROWTH AFTER 5 DAYS 01/28/21 17:55 Gram Stain - Final Sputum - Expectorated Sputum Sputum Culture - Final A&P Assessment and plan (1) Pneumonia due to 2019-nCoV: 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 Check EPI levels. Status: Chronic Additional A&P Information Hypoxia secondary to COVID-19 pneumonia: Severe disease. Oxygen supplementation keeping saturation over 88%. Dexamethasone 6 mg twice daily. For now we will increase the steroids given history of sarcoidosis in the past. Will wean off to once daily dose from tomorrow. Patient has finished a course of IV remdesivir. Vitamin C, zinc. DuoNebs, budesonide twice daily Pulmonary toilet with incentive spirometry flutter valve. We will monitor inflammatory markers including ESR, D-dimer every 48 hourly. CRP trending down today. D-dimer elevated. CTA negative for pulmonary embolism. Continue to monitor D-dimer every 48 hourly. For now continue with full dose anticoagulation given severe hypoxia. Continue with Eliquis 5 mg twice daily. Will monitor for anemia or blood loss. Sputum culture pending, procalcitonin elevated, urine bacterial antigen negative. Blood cultures so far negative. MRSA negative. Continue Zosyn to finish a 7-day course, Levaquin to finish a 5-day course. Last dose of Levaquin on 02/02, Zosyn on 02/05. Given hypoxia will try to keep patient as negative as possible. Patient clinically dehydrated for now. Echocardiogram results appreciated. Repeat IV Lasix 40 mg today Strict input output charting, daily weights. Nystatin swish and swallow. Lanoilin. Sliding scale at low-dose protocol before meals and at bedtime. High blood pressure: Past medical history of hypertension. Not on home medication. Continue with amlodipine 5 mg daily. Goal blood pressure less than 140/90 mmHg. If needed will uptitrate medications. Full code. Protonix for PUD prophylaxis. Eliquis will help with DVT prophylaxis. Full liquid diet with boost. Given a tenuous respiratory status patient is at a high risk of intubation. We will try to hold off as long as possible. Discussed in detail with the patient. She verbalized understanding. We will try to give call to the over the phone. Number in the chart seems to be not working. Will request for a repeat number from the patient. Guarded prognosis. Plan for day: Aggressive pulmonary toilet, repeat 40 mg IV Lasix. Continue to wean down oxygen keeping saturation over 88%. Out of bed to chair. Attestations Medical Necessity Statement*: Requires further hospitalization for management of acute hypoxic respiratory failure secondary to COVID-19 pneumonia Time Spent in Patient Care: Greater than 35 minutes (>than 50% of time spent in counselling and/or direct pt care on unit). Coding Level of Care Code Acute Forest Botany Instructor for [facility] Fwd Diagnoses Pneumonia due to 2019-nCoV U07.1; J12.82 Acute respiratory failure with hypoxia J96.01 Sarcoidosis, lung D86.0
[2021-02-01 17:25] LABS: Glucose Point of Care 148 mg/dL (70-110)
[2021-02-01] MEDS: insulin lispro 100 unit/1 mL SUBCUT (17:38)
[2021-02-01 20:10] LABS: Glucose Point of Care 110 mg/dL (70-110)
[2021-02-01] MEDS: pantoprazole 40 mg SDV IVP (21:18)
[2021-02-02] VITALS (36 sets, daily range): BP systolic 117–147; BP diastolic 68–95; PULSE 59–115; RESP 13–20; TEMP 36.8; O2SAT 85–100
[2021-02-02] MEDS: ipratropium-albuterol 3 mL Neb INHALATION ×6 (04:14→23:38)
[2021-02-02] MEDS: HYDROcodone-acetaminophen 10-325 mg Tablet 1 TAB PO ×3 (05:06→22:03)
[2021-02-02 05:21] LABS: Basophils % 0.2 %; Hematocrit 38.5 % (37.0-47.0); Hemoglobin 12.2 g/dL (11.5-15.3); Lymphocytes # 0.3 10^3/uL (0.8-4.8); Lymphocytes % 2.7 %; Mean Corpuscular HGB Conc 31.7 g/dL (30.0-36.0); Mean Corpuscular Hemoglobin 27.5 pg (28.0-34.0); Mean Corpuscular Volume 86.7 fl (81-99); Mean Platelet Volume 10.6 fL (7.4-10.4); Monocytes # 0.3 10^3/uL (0.2-0.9); Monocytes % 2.8 %; Neutrophils # 10.97 10^3/uL (1.8-7.7); Nucleated Red Blood Cells % 0 %; Platelet Count 474 10^3/cmm (130-400); Red Blood Count 4.44 10^6/uL (4.1-5.3); Red Cell Distribution Width 14.6 % (12.1-15.1); White Blood Count 12.2 10^3/uL (4.0-10.0)
[2021-02-02 05:50] LABS: Alkaline Phosphatase 83 IU/L (35-105); Blood Urea Nitrogen 18 mg/dL (8-23); Calcium 8.1 mg/dL (8.5-10.5); Carbon Dioxide 21 mmol/L (22-29); Chloride 104 mmol/L (98-107); Globulin 3.4 g/dL (1.3-4.6); Glomerular Filtration Rate 100.6 mL/min (90-130); Glucose 130 mg/dL (65-115); Osmolality Calculated 292 mOsm/kg (285-295); Sodium 139 mmol/L (136-145); Total Bilirubin 0.3 mg/dL (0.15-1.2); Total Protein 6.4 g/dL (6.6-8.7)
[2021-02-02 05:59] LABS: Alanine Aminotransferase 16 U/L (0-33); Anion Gap 18.5 (5-19); Aspartate Amino Transferase 12 U/L (0-32); Potassium 4.5 mmol/L (3.5-5.1)
[2021-02-02 09:08] LABS: Glucose Point of Care 109 mg/dL (70-110)
[2021-02-02] MEDS: piperacillin-tazobactam 3.375 GM in sodium chloride 0.9% (plus) 50 ML IV ×3 (09:24→22:14)
[2021-02-02] MEDS: apixaban 5 mg Tablet PO ×2 (09:25→22:04)
[2021-02-02] MEDS: nystatin 100,000 unit/mL UDC 5 mL 100000 UNIT PO ×4 (09:25→22:04)
[2021-02-02] MEDS: amlodipine 5 mg Tablet PO (09:26)
[2021-02-02] MEDS: benzonatate 100 mg Capsule 200 MG PO ×3 (09:26→22:03)
[2021-02-02] MEDS: citalopram 20 mg Tablet 30 MG PO (09:26)
[2021-02-02] MEDS: ascorbic acid 500 mg Tablet PO ×2 (09:26→18:08)
[2021-02-02] MEDS: zinc gluconate 50 mg Tablet PO (09:26)
[2021-02-02] MEDS: dexamethasone 4 mg/mL INJ 6 MG IVP (09:36)
[2021-02-02] MEDS: budesonide 0.5 mg/2 mL Neb INHALATION ×2 (09:43→19:38)
[2021-02-02] MEDS: FUROsemide 10 mg/mL SDV 4mL 40 MG IVP (10:51)
[2021-02-02] MEDS: ALPRAZolam 0.5 mg Tablet PO (13:12)
--- NOTE | 2021-02-02 14:28 | P.PN_ITS ---
Subjective Subjective: Interval history: On examination sitting up in chair. Has been on high flow nasal cannula since yesterday afternoon. Was turned down to 8 L but today morning had been turned up to 10 L. During the day went up to 12 L high flow nasal cannula and been turned down again. Patient seems comfortable. Denies any nausea, vomiting, headache. States appetite is better. Working with I-S and Acapella. Vitals/I&O/Wt Last Vital Signs Temp 98.3 F 02/01/21 19:16 Pulse 90 02/02/21 13:16 Resp 17 02/02/21 13:16 BP 119/72 02/02/21 04:00 Pulse Ox 88 L 02/02/21 13:16 02/01/21 02/02/21 02/02/21 22:59 06:59 14:59 Intake Total 690 / 1340 50 / 1390 50 / 50 Output Total 2250 / 2250 1200 / 3450 Balance -1560 / -910 -1150 / -2060 50 / 50 Weight last 48 hrs Weight 102.313 kg Weight 98.543 kg Physical Exam Narrative: EXAM NARRATIVE: General: AO x3, in no acute distress, tachypneic but lesser than yesterday, not using accessory muscles HEENT: PERRLA, pupils bilaterally equal and reactive Chest: Diffuse crackles present all over the lung ramirez, rhonchi present all over the lung ramirez, equal good air entry bilaterally CVS: S1-S2 regular, no murmurs, no tachycardia, no gallops, no rubs Abdomen: Soft, nontender, no organomegaly, bowel sounds present Neuro: No focal deficits, no facial deformity, AO x3, power 5/5 in all limbs Urinary Catheter Management^: Estrada: Cath Placed During This Visit: yes Urinary Catheter Date of Insertion: 01/27/21 Urinary Catheter Time of Insertion: 17:16 Data : 02/02/21 04:40 02/02/21 04:40 Micro: Microbiology 01/27/21 Unknown Blood Culture - Final Blood NO GROWTH AFTER 5 DAYS 01/27/21 15:06 Blood Culture - Final Blood NO GROWTH AFTER 5 DAYS A&P Assessment and plan (1) Pneumonia due to 2019-nCoV: 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 Check EPI levels. Status: Chronic Additional A&P Information Hypoxia secondary to COVID-19 pneumonia: Severe disease. Oxygen supplementation keeping saturation over 88%. Wean down dexamethasone to 6 mg daily. Patient has finished a course of IV remdesivir. Vitamin C, zinc. DuoNebs, budesonide twice daily Pulmonary toilet with incentive spirometry flutter valve. We will monitor inflammatory markers including ESR, D-dimer every 48 hourly. CRP trending down today. D-dimer elevated. CTA negative for pulmonary embolism. Continue to monitor D- dimer every 48 hourly. For now continue with full dose anticoagulation given s evere hypoxia. Continue with Eliquis 5 mg twice daily. Will monitor for anemia or blood loss. Sputum culture pending, procalcitonin elevated, urine bacterial antigen negative. Blood cultures so far negative. MRSA negative. Continue Zosyn to finish a 7-day course, Levaquin to finish a 5-day course. Last dose of Levaquin on 02/02, Zosyn on 02/05. Given hypoxia will try to keep patient as negative as possible. Patient clinically dehydrated for now. Echocardiogram results appreciated. Repeat IV Lasix 40 mg today Strict input output charting, daily weights. Nystatin swish and swallow. Lanoilin. Sliding scale at low-dose protocol before meals and at bedtime. High blood pressure: Past medical history of hypertension. Not on home medication. Continue with amlodipine 5 mg daily. Goal blood pressure less than 140/90 mmHg. If needed will uptitrate medications. Full code. Protonix for PUD prophylaxis. Eliquis will help with DVT prophylaxis. Full liquid diet with boost. Given a tenuous respiratory status patient is at a high risk of intubation. We will try to hold off as long as possible. Discussed in detail with the patient. She verbalized understanding. We will try to give call to the over the phone. Number in the chart seems to be not working. Will request for a repeat number from the patient. Guarded prognosis. Plan for day: Aggressive pulmonary toilet, repeat 40 mg IV Lasix. Continue to wean down oxygen keeping saturation over 88%. Out of bed to chair. Wean dexamethasone to 6 mg IV daily Attestations Medical Necessity Statement*: Requires further hospitalization for management of hypoxic respiratory failure secondary COVID-19 pneumonia in setting of history of sarcoid lung. Time Spent in Patient Care: Greater than 35 minutes (>than 50% of time spent in counselling and/or direct pt care on unit) . Coding Level of Care Code Acute Production Mechanic for [facility] Fwd Diagnoses Pneumonia due to 2019-nCoV U07.1; J12.82 Acute respiratory failure with hypoxia J96.01 Sarcoidosis, lung D86.0
--- NOTE | 2021-02-02 18:42 | PC.NURSE ---
Shift Note: Pt sat up in chair most fo the day. She started the day at 10lpm/HF. She had a period during the day whee her sats dropped to low 80's and required 15liters for a while. She is back at 10lpm/HF at end of shift. She is actually doing better with the monitor sleeping in the room where she can not hear the beeps. She has received pain med and xanax each once today. She received Lasix . Urine output of 2025ml. Frequent safety and comfort rounds continue. Orders and/or nursing care completed as indicated. Patient monitored for response to intervention and treatment(s). Education provided includes Deep breathing, Zosyn, and Decadron Patient verbalized understanding of medications and continuing plan of care. Will continue to monitor.
[2021-02-02 19:27] LABS: Glucose Point of Care 118 mg/dL (70-110)
[2021-02-02 19:27] LABS: Glucose Point of Care 111 mg/dL (70-110)
[2021-02-02] MEDS: pantoprazole 40 mg SDV IVP (22:05)
[2021-02-02 22:13] LABS: Glucose Point of Care 122 mg/dL (70-110)
[2021-02-03] VITALS (33 sets, daily range): BP systolic 112–142; BP diastolic 65–90; PULSE 61–103; RESP 14–26; TEMP 36.6; O2SAT 81–100
[2021-02-03] MEDS: ipratropium-albuterol 3 mL Neb INHALATION ×6 (03:04→23:12)
[2021-02-03 05:27] LABS: Basophils % 0.1 %; Eosinophils % 0.1 %; Hematocrit 38.3 % (37.0-47.0); Hemoglobin 12.1 g/dL (11.5-15.3); Lymphocytes # 0.4 10^3/uL (0.8-4.8); Lymphocytes % 3.5 %; Mean Corpuscular HGB Conc 31.6 g/dL (30.0-36.0); Mean Corpuscular Hemoglobin 27.5 pg (28.0-34.0); Monocytes # 0.9 10^3/uL (0.2-0.9); Monocytes % 7.7 %; Neutrophils # 9.76 10^3/uL (1.8-7.7); Neutrophils % 86.4 %; Nucleated Red Blood Cells % 0 %; Platelet Count 479 10^3/cmm (130-400); Red Cell Distribution Width 14.6 % (12.1-15.1); White Blood Count 11.3 10^3/uL (4.0-10.0)
[2021-02-03 05:44] LABS: C Reactive Protein 3.7 mg/L (0.0-4.9)
[2021-02-03 05:48] LABS: Alanine Aminotransferase 11 U/L (0-33); Albumin Level 2.8 g/dL (3.5-5.2); Alkaline Phosphatase 78 IU/L (35-105); Blood Urea Nitrogen 21 mg/dL (8-23); Calcium 7.7 mg/dL (8.5-10.5); Carbon Dioxide 24 mmol/L (22-29); Chloride 104 mmol/L (98-107); Globulin 3.1 g/dL (1.3-4.6); Glomerular Filtration Rate 84.2 mL/min (90-130); Glucose 85 mg/dL (65-115); Osmolality Calculated 294 mOsm/kg (285-295); Sodium 141 mmol/L (136-145); Total Bilirubin 0.3 mg/dL (0.15-1.2); Total Protein 5.9 g/dL (6.6-8.7)
[2021-02-03 05:56] LABS: Anion Gap 16.6 (5-19); Aspartate Amino Transferase 13 U/L (0-32); Potassium 3.6 mmol/L (3.5-5.1)
[2021-02-03] MEDS: budesonide 0.5 mg/2 mL Neb INHALATION ×2 (07:36→19:47)
--- NOTE | 2021-02-03 08:40 | PC.NURSE ---
Pt pre-oxygenated at 2lpm/ high flow cannula prior to moving. Pt OOB to BSC, O2 sats decreased to 80, Increased Oxygen rate. O2 sats not recovering this am, increased oxygen more to 8lpm. Pt finished with BSC, extra large loose BM noted. Pt to chair. O2 sats remains poor, dropping down to 5^%. Oxygen increased to 15lpm. Non rebreather applied Pt stated she felt better than yesterday, she did not appear to be in distress but she was practicing her deep controlled breathing. SHe requested a pain pill during this for her back. Xanax also admin for her anxiety. It took about an hour for her to recover enough to remove the non rebreather. At the end of this episode she is on a high flow cannula [id number], sitting up in chiar, asymptomatic working on her breakfast.
[2021-02-03 08:55] LABS: Glucose Point of Care 83 mg/dL (70-110)
--- NOTE | 2021-02-03 09:19 | PC.CHAP ---
Pastoral Care Encounter/Spiritual Assessment Type of Contact [] Declined field worker visit [] Patient/Family/Request visit [] Outpatient visit [] Follow-up visit [] Physician referral [] Code/Alert [x] Routine visit [] Staff referral [] Actively dying [] Patient sleeping [] Family support [] [] Out of room [] Palliative care [] [] Receiving care in room [] Pre-surgical visit [] Trauma [] Long length of stay [x] ICU visit [x] Other: isolated Relational/Emotional Strength [] Patient feels connected with others/family/visitors/staff [] Distress [] Loneliness/isolation [] Abandonment Spirituality of Patient [] Person of Chetna [] Attends Oriental Orthodox of their [place] [] Believes in Prayer [] Reads Bible or Cheondoism materials [] There are Spiritual issues to be addressed Electric System Operator Interventions [x] Prayer [] Active listening [] Non-anxious presence [] Spiritual/emotional support [] Crisis/trauma care [] Spiritual counseling [] Bereavement support [] Provided bereavement packet [] Provided Bible/devotional materials [] Provided toy/stuffed animal, coloring book to patient or family member [] Provided Communion [] Anointing/Robinson [] Salvation [x] Completed spiritual assessment [] Other: Impact on Illness or Injury [] Angry [] Fearful [] Anxious [] Often cries [] Exhaustion [] Unable to work [] Unable to attend catholic [] Unable to walk/stand [] Unable to read [] Unable to drive [] Unable to eat/drink [] Unable to sleep [] Unable to be with family [] Patient intubated [] Other: Summary Time spent with patient
[2021-02-03] MEDS: piperacillin-tazobactam 3.375 GM in sodium chloride 0.9% (plus) 50 ML IV ×2 (09:40→21:04)
[2021-02-03] MEDS: ascorbic acid 500 mg Tablet PO ×2 (09:41→17:44)
[2021-02-03] MEDS: apixaban 5 mg Tablet PO ×2 (09:41→21:03)
[2021-02-03] MEDS: benzonatate 100 mg Capsule 200 MG PO ×3 (09:41→21:03)
[2021-02-03] MEDS: citalopram 20 mg Tablet 30 MG PO (09:41)
[2021-02-03] MEDS: amlodipine 5 mg Tablet PO (09:41)
[2021-02-03] MEDS: dexamethasone 4 mg/mL INJ 6 MG IVP (09:42)
[2021-02-03] MEDS: HYDROcodone-acetaminophen 10-325 mg Tablet 1 TAB PO ×2 (09:42→17:44)
[2021-02-03] MEDS: ALPRAZolam 0.5 mg Tablet PO ×2 (09:42→21:03)
[2021-02-03] MEDS: nystatin 100,000 unit/mL UDC 5 mL 100000 UNIT PO ×4 (09:42→21:03)
[2021-02-03] MEDS: zinc gluconate 50 mg Tablet PO (09:42)
[2021-02-03 11:22] LABS: Glucose Point of Care 100 mg/dL (70-110)
[2021-02-03] MEDS: acetaminophen 325 mg Tablet 650 MG PO (12:19)
[2021-02-03 17:45] LABS: Glucose Point of Care 113 mg/dL (70-110)
--- NOTE | 2021-02-03 19:13 | PC.NURSE ---
Shift Note: Pt has sat up in chair most of shift, she has been up to [facility] [place] twice for BM. She has been on 7lpm/high flow cannula since about 1300. She did not have any more O2 sat dropping episodes like this morning's. Her O2 sats have been consistently over 94% this afternoon. Her O2 sats did not drop on her evening trip to [facility] [place]. Per pt that was a confidence booster. She has had adequate urine output of 650ml, it is very strong smelling urine. Frequent safety and comfort rounds continue. Orders and/or nursing care completed as indicated. Patient monitored for response to intervention and treatment(s). Education provided includes continuing plan of care of keeping O2 at 7lpm and taking some Xanax at bedtime and maybe in am prior to getting out of bed, and other care Patient verbalized understanding and agreement with continuing plan of care . Will continue to monitor.
--- NOTE | 2021-02-03 19:20 | P.PN_ITS ---
Subjective Subjective: Interval history: Got tired transferring over to the chair. Reports some occasional cough, no severe bouts of cough. Denies chest pain or pressure. No nausea vomiting or diarrhea. Vitals/I&O/Wt Last Vital Signs Temp 97.9 F 02/03/21 13:00 Pulse 78 02/03/21 16:02 Resp 15 02/03/21 16:00 BP 118/70 02/03/21 16:00 Pulse Ox 100 02/03/21 16:00 02/03/21 02/03/21 02/03/21 06:59 14:59 22:59 Intake Total 50 / 2450 1000 / 1000 750 / 1750 Output Total 550 / 2875 650 / 650 Balance -500 / -425 1000 / 1000 100 / 1100 Weight last 48 hrs Weight 101.378 kg Weight 102.313 kg Physical Exam Narrative: EXAM NARRATIVE: Sitting up in chair. Const: COMMON NORMALS: no acute distress and patient oriented x3 GENERAL APPEARANCE: frail appearing HENMT: COMMON NORMALS: oropharynx normal Neck/C-Spine: COMMON NORMALS: no JVD Resp: COMMON NORMALS: normal respiratory effort and clear to auscultation bilaterally AUSCULTATION: clear to auscultation bilaterally Cardio: COMMON NORMALS: no JVD, regular rhythm, S1 normal heart sound present, S2 normal heart sound present and No murmurs present (Cardio) RHYTHM: regular rhythm HEART SOUNDS: S1 normal heart sound present and S2 normal heart sound present GI: COMMON NORMALS: Normal to inspection, nondistended, normoactive bowel so unds present, Soft to palpation and non-tender PALPATION: Yes Soft to palpation Extremity: COMMON NORMALS: no joint enlargement and no pedal edema Neuro: COMMON NORMALS: patient oriented x3 and moves all extremities Skin: COMMON NORMALS: no rashes or lesions noted GENERAL SKIN EXAM: no rashes or lesions noted Urinary Catheter Management^: Estrada: Cath Placed During This Visit: yes Reason for Continuing Indwelling Catheter: Accurate Measurement of Urinary Output in Critically Ill Patients Urinary Catheter Date of Insertion: 01/27/21 Urinary Catheter Time of Insertion: 17:16 Data : 02/03/21 04:29 02/03/21 04:29 A&P Assessment and plan (1) Pneumonia due to 2019-nCoV: Severe COVID-19. Required transiently placement of nonrebreather on top of high flow cannula after transferring to the chair with saturation decreasing down to the 60s. Otherwise oxygenation gradually appears to be improving, although slowly. Continue Decadron. Completed remdesivir. Continue. Zosyn for now given consolidations. Follow-up chest x-ray. Leuko cytosis is improving. Rising BUN, hold off any additional diuretics for now. Continue Eliquis. Supportive care including antitussives. Mobilize. 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 Normal EPI levels. Status: Chronic Additional A&P Information High blood pressure: amlodipine 5 mg daily. Goal blood pressure less than 140/90 mmHg. If needed will uptitrate medications. Full code. Protonix for PUD prophylaxis. Attestations Medical Necessity Statement*: Continue admission versus management of hypoxic respiratory failure with severe COVID-19. Coding Level of Care Code Acute Community Dietitian for [facility] Diagnoses Pneumonia due to 2019-nCoV U07.1; J12.82 Acute respiratory failure with hypoxia J96.01 Sarcoidosis, lung D86.0
[2021-02-03 20:59] LABS: Glucose Point of Care 107 mg/dL (70-110)
[2021-02-03] MEDS: pantoprazole 40 mg SDV IVP (21:03)
[2021-02-04] VITALS (25 sets, daily range): BP systolic 108–144; BP diastolic 66–92; PULSE 65–105; RESP 13–22; TEMP 36.2–36.6; O2SAT 89–100
[2021-02-04] MEDS: ipratropium-albuterol 3 mL Neb INHALATION ×5 (03:01→20:20)
[2021-02-04 05:10] LABS: Eosinophils % 0.4 %; Hematocrit 38.3 % (37.0-47.0); Hemoglobin 12.1 g/dL (11.5-15.3); Lymphocytes # 0.3 10^3/uL (0.8-4.8); Mean Corpuscular HGB Conc 31.6 g/dL (30.0-36.0); Mean Corpuscular Hemoglobin 27.8 pg (28.0-34.0); Mean Corpuscular Volume 87.8 fl (81-99); Mean Platelet Volume 9.8 fL (7.4-10.4); Monocytes # 0.6 10^3/uL (0.2-0.9); Neutrophils # 6.76 10^3/uL (1.8-7.7); Neutrophils % 85.3 %; Nucleated Red Blood Cells % 0 %; Platelet Count 461 10^3/cmm (130-400); Red Blood Count 4.36 10^6/uL (4.1-5.3); Red Cell Distribution Width 14.6 % (12.1-15.1); White Blood Count 7.9 10^3/uL (4.0-10.0)
[2021-02-04] MEDS: piperacillin-tazobactam 3.375 GM in sodium chloride 0.9% (plus) 50 ML IV ×3 (05:27→21:06)
[2021-02-04] MEDS: ALPRAZolam 0.5 mg Tablet PO ×3 (05:27→21:05)
[2021-02-04 05:35] LABS: Alanine Aminotransferase 11 U/L (0-33); Albumin Level 2.8 g/dL (3.5-5.2); Alkaline Phosphatase 86 IU/L (35-105); Anion Gap 13.4 (5-19); Aspartate Amino Transferase 11 U/L (0-32); Blood Urea Nitrogen 18 mg/dL (8-23); Calcium 7.9 mg/dL (8.5-10.5); Carbon Dioxide 26 mmol/L (22-29); Chloride 105 mmol/L (98-107); Glomerular Filtration Rate 100.6 mL/min (90-130); Glucose 89 mg/dL (65-115); Osmolality Calculated 293 mOsm/kg (285-295); Potassium 3.4 mmol/L (3.5-5.1); Sodium 141 mmol/L (136-145); Total Bilirubin 0.3 mg/dL (0.15-1.2); Total Protein 5.8 g/dL (6.6-8.7)
--- NOTE | 2021-02-04 06:00 | XRR_ITS ---
PROCEDURE INFORMATION: Exam: XR Chest Exam date and time: 02/04/2021 6:00 AM Age: 65 years old Clinical indication: Dyspnea; Additional info: Hypoxia TECHNIQUE: Imaging protocol: XR of the chest. Views: 1 view. COMPARISON: CR XR chest 1V portable [id number] 01/30/2021 4:25 PM FINDINGS: Lungs: Persistent bilateral airspace opacities, with worsening of the opacities in the right lung. No large pleural effusion or pneumothorax. Pleural spaces: See Lungs finding. Heart/Mediastinum: Stable cardiomediastinal silhouette. Bones/joints: No acute osseous injury identified. XR/XR chest 1V portable [id number] IMPRESSION: Persistent bilateral airspace opacities, with worsening on the right.
[2021-02-04] MEDS: budesonide 0.5 mg/2 mL Neb INHALATION ×2 (08:14→20:20)
[2021-02-04 08:25] LABS: Glucose Point of Care 90 mg/dL (70-110)
[2021-02-04] MEDS: nystatin 100,000 unit/mL UDC 5 mL 100000 UNIT PO ×4 (09:30→21:04)
[2021-02-04] MEDS: ascorbic acid 500 mg Tablet PO ×2 (09:31→17:27)
[2021-02-04] MEDS: benzonatate 100 mg Capsule 200 MG PO ×3 (09:31→21:05)
[2021-02-04] MEDS: potassium chloride ER 20 mEq Tablet PO (09:31)
[2021-02-04] MEDS: amlodipine 5 mg Tablet PO (09:31)
[2021-02-04] MEDS: apixaban 5 mg Tablet PO ×2 (09:31→21:05)
[2021-02-04] MEDS: citalopram 20 mg Tablet 30 MG PO (09:31)
[2021-02-04] MEDS: zinc gluconate 50 mg Tablet PO (09:31)
[2021-02-04] MEDS: dexamethasone 4 mg/mL INJ 6 MG IVP (09:32)
[2021-02-04 11:41] LABS: Glucose Point of Care 79 mg/dL (70-110)
[2021-02-04] MEDS: HYDROcodone-acetaminophen 10-325 mg Tablet 1 TAB PO ×2 (12:55→21:05)
[2021-02-04 16:58] LABS: Glucose Point of Care 118 mg/dL (70-110)
--- NOTE | 2021-02-04 19:29 | PC.NURSE ---
Shift Note: Pt had a good day . She has been up in a chair for the shift. Her O2 sats decreased to 84% with exertion, she recovered much quicker today than previously. She remains on 7 lpm/ high flow NC. Pt has worked with pt today, she tolerated well. She has requested a pain tablet once this shift. A Xanax was also admin when she complained of not being able to breath and chest tightness this afternoon but her O2 sats where at 90%. She is now in ICU as a Medsurg pt. She had 1 Bm and 450 ml of urine output this shift. Frequent safety and comfort rounds continue. Orders and/or nursing care completed as indicated. Patient monitored for response to intervention and treatment(s). Education provided includes IS, acapello, deep breath and calming exercises, Nyastatin and continuing plan of care. . Patient verbalized understading of plan of care and medications. Will continue to monitor.
--- NOTE | 2021-02-04 20:13 | PM.PN ---
Subjective Subjective: Interval history: She reports is doing a bit better today. Transfers are becoming a bit easier to the chair. Still requiring high flow cannula oxygen but has been down to 7 L. Denies headache, chest pain, nausea vomiting or diarrhea. Vitals/I&O/Wt Last Vital Signs Temp 97.8 F 02/04/21 08:00 Pulse 98 02/04/21 18:00 Resp 15 02/04/21 18:00 BP 134/92 02/04/21 18:00 Pulse Ox 100 02/04/21 18:00 02/04/21 02/04/21 02/04/21 06:59 14:59 22:59 Intake Total 50 / 1830 1050 / 1050 500 / 1550 Output Total 400 / 1050 450 / 450 Balance -350 / 780 1050 / 1050 50 / 1100 Weight last 48 hrs Weight 101.378 kg Physical Exam Narrative: EXAM NARRATIVE: Sitting up in chair. Const: COMMON NORMALS: no acute distress and patient oriented x3 GENERAL APPEARANCE: frail appearing HENMT: COMMON NORMALS: oropharynx normal Neck/C-Spine: COMMON NORMALS: no JVD Resp: COMMON NORMALS: normal respiratory effort and clear to auscultation bilaterally AUSCULTATION: clear to auscultation bilaterally Cardio: COMMON NORMALS: no JVD, regular rhythm, S1 normal heart sound present, S2 normal heart sound present and No murmurs present (Cardio) RHYTHM: regular rhythm HEART SOUNDS: S1 normal heart sound present and S2 normal heart sound present GI: COMMON NORMALS: Normal to inspection, nondistended, normoactive bowel sounds present, Soft to palpation and non-tender PALPATION: Yes Soft to palpation Extremity: COMMON NORMALS: no joint enlargement and no pedal edema Neuro: COMMON NORMALS: patient oriented x3 and moves all extremities Skin: COMMON NORMALS: no rashes or lesions noted GENERAL SKIN EXAM: no rashes or lesions noted Urinary Catheter Management^: Estrada: Cath Placed During This Visit: yes Reason for Continuing Indwelling Catheter: Accurate Measurement of Urinary Output in Critically Ill Patients Urinary Catheter Date of Insertion: 01/27/21 Urinary Catheter Time of Insertion: 17:16 Data : 02/04/21 04:25 02/04/21 04:25 A&P Assessment and plan (1) Pneumonia due to 2019-nCoV: Oxygenation gradually improving. Continues to require high flow oxygen, but appears to be doing well on 7 L. Continue to de-escalate oxygen support as tolerating. Continue Decadron. Completed remdesivir. Continue. Zosyn for now given consolidations. Follow-up chest x-ray with worsening opacities on the right, continue to biotic. Leukocytosis is resolving. Rising BUN, hold of continue to f any additional diuretics. Continue Eliquis. Supportive care including antitussives. Continue to mobilize. Has been transferred to [facility]. Is overflow in ICU. 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 Normal EPI levels. Status: Chronic Additional A&P Information High blood pressure: amlodipine 5 mg daily. Goal blood pressure less than 140/90 mmHg. Close to goal. If needed will uptitrate medications. Mild hypokalemia: Replaced. Full code. Protonix for PUD prophylaxis. Attestations Medical Necessity Statement*: Continue admission for assessment management of severe COVID-19, hypoxic respiratory failure. Coding Level of Care Code Acute Stencil Sprayer for [facility] Diagnoses Pneumonia due to 2019-nCoV U07.1; J12.82 Acute respiratory failure with hypoxia J96.01 Sarcoidosis, lung D86.0
[2021-02-04 20:55] LABS: Glucose Point of Care 102 mg/dL (70-110)
[2021-02-04] MEDS: pantoprazole 40 mg SDV IVP (21:04)
--- NOTE | 2021-02-04 23:11 | PC.NURSE ---
Patient vitals stable. Report given to Leonora DRAKE
--- NOTE | 2021-02-04 23:49 | PC.NURSE ---
Transfer report received from Cecille RN/ICU. Patient in bed/awake. Denies pain. IV patent/antibiotic infusing. Estrada patent draining clear yellow urine. No needs voiced at this time.
[2021-02-05] VITALS (22 sets, daily range): BP systolic 119–135; BP diastolic 75–83; PULSE 64–98; RESP 15–20; TEMP 36.6–37.6; O2SAT 88–98
[2021-02-05] MEDS: ipratropium-albuterol 3 mL Neb INHALATION ×7 (00:17→23:24)
[2021-02-05] MEDS: piperacillin-tazobactam 3.375 GM in sodium chloride 0.9% (plus) 50 ML IV ×2 (05:29→16:59)
[2021-02-05 05:41] LABS: Basophils % 0.1 %; Eosinophils % 0.4 %; Hematocrit 37.2 % (37.0-47.0); Hemoglobin 11.6 g/dL (11.5-15.3); Lymphocytes # 0.4 10^3/uL (0.8-4.8); Lymphocytes % 4.3 %; Mean Corpuscular HGB Conc 31.2 g/dL (30.0-36.0); Mean Corpuscular Hemoglobin 27.4 pg (28.0-34.0); Mean Corpuscular Volume 87.9 fl (81-99); Mean Platelet Volume 9.7 fL (7.4-10.4); Monocytes # 0.8 10^3/uL (0.2-0.9); Monocytes % 9.4 %; Neutrophils # 6.85 10^3/uL (1.8-7.7); Nucleated Red Blood Cells % 0 %; Platelet Count 405 10^3/cmm (130-400); Red Blood Count 4.23 10^6/uL (4.1-5.3); Red Cell Distribution Width 14.7 % (12.1-15.1); White Blood Count 8.2 10^3/uL (4.0-10.0)
[2021-02-05 05:59] LABS: Anion Gap 14.5 (5-19); Blood Urea Nitrogen 15 mg/dL (8-23); Calcium 7.7 mg/dL (8.5-10.5); Carbon Dioxide 24 mmol/L (22-29); Chloride 107 mmol/L (98-107); Creatinine Clr Calc Pharmacy 149.0272; Glomerular Filtration Rate 124.2 mL/min (90-130); Glucose 90 mg/dL (65-115); Osmolality Calculated 294 mOsm/kg (285-295); Potassium 3.5 mmol/L (3.5-5.1); Sodium 142 mmol/L (136-145)
[2021-02-05 06:38] LABS: Glucose Point of Care 92 mg/dL (70-110)
[2021-02-05] MEDS: budesonide 0.5 mg/2 mL Neb INHALATION ×2 (08:07→20:02)
[2021-02-05] MEDS: amlodipine 5 mg Tablet PO (09:39)
[2021-02-05] MEDS: ascorbic acid 500 mg Tablet PO ×2 (09:39→17:07)
[2021-02-05] MEDS: apixaban 5 mg Tablet PO ×2 (09:40→20:34)
[2021-02-05] MEDS: benzonatate 100 mg Capsule 200 MG PO ×3 (09:40→20:34)
[2021-02-05] MEDS: HYDROcodone-acetaminophen 10-325 mg Tablet 1 TAB PO ×2 (09:40→17:18)
[2021-02-05] MEDS: zinc gluconate 50 mg Tablet PO (09:40)
[2021-02-05] MEDS: citalopram 20 mg Tablet 30 MG PO (09:41)
[2021-02-05] MEDS: dexamethasone 4 mg/mL INJ 6 MG IVP (09:43)
[2021-02-05] MEDS: nystatin 100,000 unit/mL UDC 5 mL 100000 UNIT PO ×4 (09:46→21:12)
[2021-02-05 11:13] LABS: Glucose Point of Care 142 mg/dL (70-110)
--- NOTE | 2021-02-05 15:30 | PM.PN ---
Subjective Subjective: Interval history: Denies any new changes. Denies headache, chest pain or pressure, nausea vomiting or diarrhea. Vitals/I&O/Wt Last Vital Signs Temp 99 F 02/05/21 15:29 Pulse 79 02/05/21 15:29 Resp 16 02/05/21 15:29 BP 119/79 02/05/21 15:29 Pulse Ox 94 02/05/21 15:29 02/05/21 02/05/21 02/05/21 06:59 14:59 22:59 Intake Total 150 / 1750 50 / 50 Output Total 140 / 765 Balance 50 / 50 Weight last 48 hrs Weight 101.423 kg Physical Exam Narrative: EXAM NARRATIVE: Sitting up in bed. Const: COMMON NORMALS: no acute distress, patient oriented x3 and alert GENERAL APPEARANCE: cooperative and frail appearing ORIENTATION/CONSCIOUSNESS: Yes awake HENMT: COMMON NORMALS: oropharynx normal Neck/C-Spine: COMMON NORMALS: no JVD Resp: COMMON NORMALS: normal respiratory effort and clear to auscultation bilaterally AUSCULTATION: clear to auscultation bilaterally Cardio: COMMON NORMALS: no JVD, regular rhythm, S1 normal heart sound present, S2 normal heart sound present and No murmurs present (Cardio) RHYTHM: regular rhythm HEART SOUNDS: S1 normal heart sound present and S2 normal heart sound present GI: COMMON NORMALS: Normal to inspection, nondistended, normoactive bowel sounds present, Soft to palpation and non-tender PALPATION: Yes Soft to palpation Extremity: COMMON NORMALS: no joint enlargement and no pedal edema Neuro: COMMON NORMALS: patient oriented x3 and moves all extremities SENSORIUM/ORIENTATION: Yes alert Skin: COMMON NORMALS: no rashes or lesions noted GENERAL SKIN EXAM: no rashes or lesions noted Urinary Catheter Management^: Estrada: Cath Placed During This Visit: yes Reason for Continuing Indwelling Catheter: Other Urinary Catheter Date of Insertion: 01/27/21 Urinary Catheter Time of Insertion: 17:16 Data : 02/05/21 05:31 02/05/21 05:31 A&P Assessment and plan (1) Pneumonia due to 2019-nCoV: Overall gradually improved, but currently persistently requiring 7 L by nasal cannula. Continue to wean down as tolerating. Given worsening chest x-ray recently continue Zosyn for now. Leukocytosis has resolved. Sputum cultures with mixed upper respiratory berkley. Continue Decadron. Completed remdesivir. Hold off any further diuretics. Continue Eliquis. Continue supportive care including antitussives. I-S. Continue to mobilize. 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 Normal EPI levels. Status: Chronic Additional A&P Information High blood pressure: amlodipine 5 mg daily. Goal blood pressure less than 140/90 mmHg. Close to goal. If needed will uptitrate medications. Mild hypokalemia: Replaced. Full code. Protonix for PUD prophylaxis. Attestations Medical Necessity Statement*: Continue oxygen support, steroid, supportive care with severe COVID-19, persistent hypoxia, superimposed bacterial pneumonia. Coding Level of Care Code Acute Front Desk Worker for [facility] Diagnoses Pneumonia due to 2019-nCoV U07.1; J12.82 Acute respiratory failure with hypoxia J96.01 Sarcoidosis, lung D86.0
[2021-02-05 17:22] LABS: Glucose Point of Care 121 mg/dL (70-110)
[2021-02-05 20:15] LABS: Glucose Point of Care 131 mg/dL (70-110)
[2021-02-05] MEDS: pantoprazole DR 40 mg Tablet PO (20:34)
[2021-02-06] VITALS (19 sets, daily range): BP systolic 97–151; BP diastolic 62–83; PULSE 67–92; RESP 16–20; TEMP 36.6–37.4; O2SAT 90–98
[2021-02-06] MEDS: piperacillin-tazobactam 3.375 GM in sodium chloride 0.9% (plus) 50 ML IV ×3 (00:34→17:00)
[2021-02-06] MEDS: HYDROcodone-acetaminophen 10-325 mg Tablet 1 TAB PO (00:39)
[2021-02-06] MEDS: ipratropium-albuterol 3 mL Neb INHALATION ×6 (03:10→23:46)
[2021-02-06 05:23] LABS: Basophils % 0.1 %; Eosinophils % 0.1 %; Hematocrit 35.2 % (37.0-47.0); Lymphocytes # 0.3 10^3/uL (0.8-4.8); Lymphocytes % 3.8 %; Mean Corpuscular HGB Conc 31.3 g/dL (30.0-36.0); Mean Corpuscular Hemoglobin 27.4 pg (28.0-34.0); Mean Corpuscular Volume 87.6 fl (81-99); Mean Platelet Volume 9.8 fL (7.4-10.4); Monocytes # 0.6 10^3/uL (0.2-0.9); Monocytes % 7.9 %; Neutrophils # 6.66 10^3/uL (1.8-7.7); Neutrophils % 86.8 %; Nucleated Red Blood Cells % 0 %; Platelet Count 401 10^3/cmm (130-400); Red Blood Count 4.02 10^6/uL (4.1-5.3); Red Cell Distribution Width 14.5 % (12.1-15.1); White Blood Count 7.7 10^3/uL (4.0-10.0)
[2021-02-06 05:42] LABS: Blood Urea Nitrogen 13 mg/dL (8-23); Calcium 7.8 mg/dL (8.5-10.5); Carbon Dioxide 25 mmol/L (22-29); Chloride 105 mmol/L (98-107); Glomerular Filtration Rate 100.6 mL/min (90-130); Glucose 94 mg/dL (65-115); Osmolality Calculated 292 mOsm/kg (285-295); Sodium 141 mmol/L (136-145)
[2021-02-06] MEDS: potassium chloride premix 100 ML 25 MEQ IV (06:43)
[2021-02-06 06:45] LABS: Glucose Point of Care 90 mg/dL (70-110)
[2021-02-06] MEDS: budesonide 0.5 mg/2 mL Neb INHALATION ×2 (08:22→20:35)
[2021-02-06] MEDS: apixaban 5 mg Tablet PO ×2 (09:34→20:45)
[2021-02-06] MEDS: zinc gluconate 50 mg Tablet PO (09:34)
[2021-02-06] MEDS: citalopram 20 mg Tablet 30 MG PO (09:34)
[2021-02-06] MEDS: benzonatate 100 mg Capsule 200 MG PO ×3 (09:34→20:45)
[2021-02-06] MEDS: amlodipine 5 mg Tablet PO (09:34)
[2021-02-06] MEDS: ascorbic acid 500 mg Tablet PO ×2 (09:34→17:01)
[2021-02-06] MEDS: dexamethasone 4 mg/mL INJ 6 MG IVP (09:35)
[2021-02-06] MEDS: nystatin 100,000 unit/mL UDC 5 mL 100000 UNIT PO ×4 (09:35→20:46)
[2021-02-06 11:07] LABS: Glucose Point of Care 96 mg/dL (70-110)
[2021-02-06] MEDS: HYDROcodone-acetaminophen 5-325 mg Tablet 1 TAB PO ×2 (12:59→19:44)
--- NOTE | 2021-02-06 13:41 | PM.PN ---
Subjective Subjective: Interval history: She is gradually improving. She is having some intermittent cough, no severe bouts. Denies chest pain or pressure. No headache, nausea vomiting or diarrhea. Vitals/I&O/Wt Last Vital Signs Temp 99.3 F 02/06/21 11:27 Pulse 75 02/06/21 11:27 Resp 18 02/06/21 11:27 BP 114/73 02/06/21 11:27 Pulse Ox 91 02/06/21 11:27 02/05/21 02/06/21 02/06/21 22:59 06:59 14:59 Intake Total 300 / 350 290 / 640 360 / 360 Output Total 300 / 300 740 / 1040 Balance 0 / 50 -450 / -400 360 / 360 Weight last 48 hrs Weight 102.512 kg Weight 101.423 kg Physical Exam Narrative: EXAM NARRATIVE: Sitting up in bed. Const: COMMON NORMALS: no acute distress, patient oriented x3 and alert GENERAL APPEARANCE: cooperative and frail appearing ORIENTATION/CONSCIOUSNESS: Yes awake HENMT: COMMON NORMALS: oropharynx normal Neck/C-Spine: COMMON NORMALS: no JVD Resp: COMMON NORMALS: normal respiratory effort and clear to auscultation bilaterally AUSCULTATION: clear to auscultation bilaterally Cardio: COMMON NORMALS: no JVD, regular rhythm, S1 normal heart sound present, S2 normal heart sound present and No murmurs present (Cardio) RHYTHM: regular rhythm HEART SOUNDS: S1 normal heart sound present and S2 normal heart sound present GI: COMMON NORMALS: Normal to inspection, nondistended, normoactive bowel sounds present, Soft to palpation and non-tender PALPATION: Yes Soft to palpation Extremity: COMMON NORMALS: no joint enlargement and no pedal edema Neuro: COMMON NORMALS: patient oriented x3 and moves all extremities SENSORIUM/ORIENTATION: Yes alert Skin: COMMON NORMALS: no rashes or lesions noted GENERAL SKIN EXAM: no rashes or lesions noted Urinary Catheter Management^: Estrada: Cath Placed During This Visit: yes Reason for Continuing Indwelling Catheter: Acute Urinary Retention or Obstruction Urinary Catheter Date of Insertion: 01/27/21 Urinary Catheter Time of Insertion: 17:16 Data : 02/06/21 04:40 02/06/21 04:40 A&P Assessment and plan (1) Pneumonia due to 2019-nCoV: Oxygenation is improving, today is weaning down to 4 L nasal cannula. Subjectively continues to improve. Continue to mobilize. Wean down oxygen as tolerating. If continues to do well, tomorrow possibly can return home. Will request home O2 evaluation. Given worsened infiltrates on recent chest x-ray continue Zosyn for now. Leukocytosis has resolved. Sputum cultures with mixed upper respiratory berkley. Continue Decadron. Completed remdesivir. Hold off any further diuretics. Continue Eliquis. Continue supportive care including antitussives. I-S. Continue to mobilize. 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 Normal EPI levels. Status: Chronic Additional A&P Information High blood pressure: At goal. Amlodipine 5 mg daily. Mild hypokalemia: Received additional replacement this morning. Full code. Protonix for PUD prophylaxis. Attestations Medical Necessity Statement*: Continue admission for assessment management of hypoxic respiratory failure, severe COVID-19, disposition planning and arrangements. Coding Level of Care Code Acute Watch Crystal Grinder for [facility] Diagnoses Pneumonia due to 2019-nCoV U07.1; J12.82 Acute respiratory failure with hypoxia J96.01 Sarcoidosis, lung D86.0
[2021-02-06 17:10] LABS: Glucose Point of Care 156 mg/dL (70-110)
[2021-02-06] MEDS: pantoprazole DR 40 mg Tablet PO (20:46)
[2021-02-06 21:07] LABS: Glucose Point of Care 111 mg/dL (70-110)
[2021-02-07] VITALS (9 sets, daily range): BP systolic 130–149; BP diastolic 70–90; PULSE 68–101; RESP 16–20; TEMP 36.7–37.2; O2SAT 80–95
[2021-02-07] MEDS: piperacillin-tazobactam 3.375 GM in sodium chloride 0.9% (plus) 50 ML IV ×2 (00:22→09:26)
[2021-02-07] MEDS: HYDROcodone-acetaminophen 5-325 mg Tablet 1 TAB PO ×2 (02:56→09:25)
[2021-02-07] MEDS: ipratropium-albuterol 3 mL Neb INHALATION ×2 (03:30→09:03)
[2021-02-07 05:40] LABS: Basophils % 0.1 %; Eosinophils % 0.1 %; Hematocrit 33.7 % (37.0-47.0); Hemoglobin 10.6 g/dL (11.5-15.3); Lymphocytes # 0.4 10^3/uL (0.8-4.8); Mean Corpuscular HGB Conc 31.5 g/dL (30.0-36.0); Mean Corpuscular Hemoglobin 27.5 pg (28.0-34.0); Mean Corpuscular Volume 87.5 fl (81-99); Monocytes # 0.6 10^3/uL (0.2-0.9); Neutrophils # 6.05 10^3/uL (1.8-7.7); Nucleated Red Blood Cells % 0 %; Platelet Count 362 10^3/cmm (130-400); Red Blood Count 3.85 10^6/uL (4.1-5.3); Red Cell Distribution Width 14.7 % (12.1-15.1); White Blood Count 7.1 10^3/uL (4.0-10.0)
[2021-02-07 05:51] LABS: D Dimer 0.41 ug/mIFEU (0-0.59)
[2021-02-07 05:57] LABS: Anion Gap 13.4 (5-19); Blood Urea Nitrogen 10 mg/dL (8-23); Calcium 7.6 mg/dL (8.5-10.5); Carbon Dioxide 25 mmol/L (22-29); Chloride 107 mmol/L (98-107); Glomerular Filtration Rate 160.7 mL/min (90-130); Glucose 89 mg/dL (65-115); Osmolality Calculated 293 mOsm/kg (285-295); Potassium 3.4 mmol/L (3.5-5.1); Sodium 142 mmol/L (136-145)
[2021-02-07 06:47] LABS: Glucose Point of Care 89 mg/dL (70-110)
[2021-02-07] MEDS: budesonide 0.5 mg/2 mL Neb INHALATION (09:03)
[2021-02-07] MEDS: ascorbic acid 500 mg Tablet PO (09:23)
[2021-02-07] MEDS: amlodipine 5 mg Tablet PO (09:23)
[2021-02-07] MEDS: benzonatate 100 mg Capsule 200 MG PO (09:23)
[2021-02-07] MEDS: zinc gluconate 50 mg Tablet PO (09:23)
[2021-02-07] MEDS: apixaban 5 mg Tablet PO (09:24)
[2021-02-07] MEDS: citalopram 20 mg Tablet 30 MG PO (09:24)
[2021-02-07] MEDS: dexamethasone 4 mg/mL INJ 6 MG IVP (09:25)
[2021-02-07] MEDS: potassium chloride ER 20 mEq Tablet PO (09:25)
[2021-02-07] MEDS: nystatin 100,000 unit/mL UDC 5 mL 100000 UNIT PO (09:25)
--- NOTE | 2021-02-07 10:48 | PM.DCS ---
Discharge Providers Date of Admission: 01/27/21 18:14 Date of Discharge: February 07, 2021 Attending Provider at Admission: Joe Burch MD Attending Provider at Discharge: Jaime Campbell Primary Care Provider: Deacon Armas Diagnoses at Discharge Discharge Diagnosis (1) Pneumonia due to 2019-nCoV: Status: Acute (2) Acute respiratory failure with hypoxia: Status: Acute (3) Sarcoidosis, lung: Status: Chronic Reason for Visit Reason for Visit: COVID + TROUBLE BREATHING Hospital Course Hospital Course Pleasant 65-year-old lady with remote history of pulmonary sarcoidosis, status post monoclonal antibody infusion for COVID-19 on January 22 was admitted for management of severe COVID-19 pneumonia with hypoxic respiratory failure, completed course of remdesivir, treated with Decadron, treated empirically with Zosyn due to concern for superimposed bacterial infection with symmetrical infiltrates, with her condition gradually improving. Transiently also received diuretics. Wean down on oxygen support from FiO2 as high as 50% on heated high flow cannula, down currently to 3 L nasal cannula. Doing well. Getting. Tolerating oral intake well. Feels well enough to return home. EPI levels checked in the hospital were normal. Pulmonary sarcoidosis previously treated more than 20 years ago. Does not appear to be active. On home O2 evaluation qualifies for 3 L at rest and 5 L with exertion. Physical Exam Narrative: EXAM NARRATIVE: Sitting up in bed. Const: COMMON NORMALS: no acute distress, patient oriented x3 and alert GENERAL APPEARANCE: cooperative and comfortable ORIENTATION/CONSCIOUSNESS: Yes awake HENMT: COMMON NORMALS: oropharynx normal Neck/C-Spine: COMMON NORMALS: no JVD Resp: COMMON NORMALS: normal respiratory effort and clear to auscultation bilaterally EFFORT & INSPECTION: Yes able to speak in complete sentences AUSCULTATION: clear to auscultation bilaterally Cardio: COMMON NORMALS: no JVD, regular rhythm, S1 normal heart sound present, S2 normal heart sound present and No murmurs present (Cardio) RHYTHM: regular rhythm HEART SOUNDS: S1 normal heart sound present and S2 normal heart sound present GI: COMMON NORMALS: Normal to inspection, nondistended, normoactive bowel sounds present, Soft to palpation and non-tender PALPATION: Yes Soft to palpation Extremity: COMMON NORMALS: no joint enlargement and no pedal edema Neuro: COMMON NORMALS: patient oriented x3 and moves all extremities SENSORIUM/ORIENTATION: Yes alert Skin: COMMON NORMALS: no rashes or lesions noted GENERAL SKIN EXAM: no rashes or lesions noted Urinary Catheter Management^: Estrada: Cath Placed During This Visit: yes Reason for Continuing Indwelling Catheter: Acute Urinary Retention or Obstruction Urinary Catheter Date of Insertion: 01/27/21 Urinary Catheter Time of Insertion: 17:16 Discharge Data Data Completed and Pending: Completed Studies During Hospitalization Category Date Time Status CT angio chest PE protcl [id number] Stat Cat Scan 01/27/21 14:32 Completed XR chest 1V iglesia ble [id number] Q48H Exams 01/28/21 16:30 Completed XR chest 1V iglesia ble [id number] Q48H Exams 01/30/21 16:30 Completed XR chest 1V iglesia ble [id number] Routine Exams 01/29/21 04:21 Completed XR chest 1V iglesia ble [id number] Routine Exams 02/04/21 06:00 Completed XR chest 1V iglesia ble [id number] Urgent Exams 01/27/21 13:27 Completed CV. echo complete * [id number] Routine Ultrasound 01/28/21 14:31 Completed Labs from last 24 hours 02/07/21 02/07/21 02/07/21 06:33 05:24 05:24 WBC RBC Hgb Hct MCV MCH MCHC RDW Plt Count MPV Neut % (Auto) Lymph % (Auto) [place] % (Auto) Eos % (Auto) Baso % (Auto) Neut # (Auto) Lymph # (Auto) [place] # (Auto) Eos # (Auto) Baso # (Auto) Nucleated RBC % (a uto) Nucleated RBCs # D-Dimer 0.41 Sodium 142 Potassium 3.4 L Chloride 107 Carbon Dioxide 25 Anion Gap 13.4 BUN 10 Creatinine 0.4 L GFR Calculation 160.7 H Glucose 89 POC Glucose 89 Calculated Osmolal ity 293 Calcium 7.6 L 02/07/21 02/06/21 02/06/21 05:24 21:04 16:54 WBC 7.1 RBC 3.85 L Hgb 10.6 L Hct 33.7 L MCV 87.5 MCH 27.5 L MCHC 31.5 RDW 14.7 Plt Count 362 MPV 10.0 Neut % (Auto) 85.0 Lymph % (Auto) 5.0 [place] % (Auto) 9.0 Eos % (Auto) 0.1 Baso % (Auto) 0.1 Neut # (Auto) 6.05 Lymph # (Auto) 0.[address] [place] # (Auto) 0.6 Eos # (Auto) 0.0 Baso # (Auto) 0.0 Nucleated RBC % (a uto) 0 Nucleated RBCs # 0.0 D-Dimer Sodium Potassium Chloride Carbon Dioxide Anion Gap BUN Creatinine GFR Calculation Glucose POC Glucose 111 H 156 H Calculated Osmolal ity Calcium 02/06/21 10:53 WBC RBC Hgb Hct MCV MCH MCHC RDW Plt Count MPV Neut % (Auto) Lymph % (Auto) [place] % (Auto) Eos % (Auto) Baso % (Auto) Neut # (Auto) Lymph # (Auto) [place] # (Auto) Eos # (Auto) Baso # (Auto) Nucleated RBC % (a uto) Nucleated RBCs # D-Dimer Sodium Potassium Chloride Carbon Dioxide Anion Gap BUN Creatinine GFR Calculation Glucose POC Glucose 96 Calculated Osmolal ity Calcium Vitals: Last Vital Signs Temp 98.9 F 02/07/21 07:49 Pulse 89 02/07/21 09:37 Resp 20 H 02/07/21 09:37 BP 149/90 02/07/21 07:49 Pulse Ox 91 02/07/21 09:37 Discharge Plan Discharge Patient Disposition: Home Condition: Stable Prescriptions: New lisinopril 2.5 mg tablet 2.5 mg PO DAILY Qty: 90 RF: 0 benzonatate 100 mg Capsule 200 mg PO TID PRN (Reason: Cough) Qty: 90 RF: 0 Continued hydrocodone-acetaminophen 10-325 mg tablet 1 tab PO Q6H PRN (Reason: Pain) RF: 0 pantoprazole 40 mg tablet,delayed release (DR/EC) 40 mg PO BID RF: 0 biotin 5 mg capsule 5 mg PO DAILY PRN (Reason: takes when she remembers) RF: 0 Tylenol Ex Str Rapid Release 500 mg Tablet 500 mg PO Q4H PRN (Reason: Pain) RF: 0 trazodone 100 mg tablet 100 mg PO BEDTIME PRN (Reason: Sleep) RF: 0 ProAir HFA 90 mcg/actuation Hfa Aerosol Inhaler 2 puff INHALATION QID PRN (Reason: Shortness Of Breath) RF: 0 Bariatric Multivitamins 45 mg iron- 800 mcg-120 mcg Capsule 1 cap PO DAILY PRN (Reason: states she takes when she remembers) RF: 0 Discontinued dexamethasone 6 mg tablet 6 mg PO DAILY RF: 0 Discharge Orders: Discharge Order (Routine); Ordered 02/07/21 Ordered By: Jaime Campbell Other Ambulatory Orders: DME: Oxygen (Order) Location: None Selected Ordered By: Jaime Campbell Referrals: [facility] [Outside] [facility] [Outside] ([facility] has accepted you to their services. They will be contacting you about a time to admit you to their services. They are set to see you on 02/17/21. If you have any questions please call them at [phone].) Deacon Armas [Primary Care Provider] - 4-7 days Discharge Diet: Usual diet Discharge Activity: Increase activity as tolerated and Oxygen as instructed Patient Instructions: Lisinopril (By mouth), Hypokalemia (GEN), Using Oxygen at Home (GEN), Chronic Hypertension (GEN), Hypoxia (GEN), Droplet Precautions (GEN), COVID-19 (Coronavirus Disease 2019) (GEN), Opioid Safety Activity Restrictions/Additional Instructions: Continue oxygen at home, target oxygen saturation of 90-92%. He need more oxygen, 5 L currently with exertion, 3 L at rest. Your oxygen requirement should continue to gradually go down. You may decrease oxygen flow as long as your saturation is staying at 92 or above. In case you experience severe fatigue, shortness of breath, high fever, or other concerning symptoms, seek medical attention. Continue isolation until 20 days since the onset of your symptoms. Seek vaccination for COVID-19 to prevent recurrence of severe illness. Due to receiving monoclonal antibodies this would have to be 90 days after monoclonal antibody infusion, so sometime after April 22. Continue monitoring blood pressures at home 3 times daily, write down values to bring to your appointment. Include foods rich in potassium due to mildly low potassium levels. Have your primary doctor follow-up your potassium level in office. Discharge Attestations Time Spent in Discharge Care*: less than 30 min Quality Metrics Clinical Quality Measures During this hospital stay, did patient experience: None Coding Level of Care Code Acute Chg FW DC note Diagnoses Pneumonia due to 2019-nCoV U07.1; J12.82 Acute respiratory failure with hypoxia J96.01 Sarcoidosis, lung D86.0
== END 2021-02-07 12:30 | disposition home health service (06) | DRG 177 ==
LOC: ER 15:10 → ICU 18:23 → MEDSURG 02-04 23:48
PROVIDERS: Physician Assistant; Student in an Organized Health Care Education/Training Program; Admitting Provider Student in an Organized Health Care Education/Training Program; Emergency Provider Family Medicine; PCP Family Medicine; Visit Provider Internal Medicine
DX: U07.1 COVID-19 (principal); J12.82 Pneumonia due to coronavirus disease 2019; J96.01 Acute respiratory failure with hypoxia; K21.9 Gastro-esophageal reflux disease without esophagitis; D86.0 Sarcoidosis of lung; Z98.84 Bariatric surgery status; Z87.891 Personal history of nicotine dependence; Z79.891 Long term (current) use of opiate analgesic; Z79.51 Long term (current) use of inhaled steroids
CPT/HCPCS: 36415; 36416; 36600; 51702; 71045; 71275; 80048; 80053; 80061; 80202; 81003; 82164; 82550; 82803; 82962; 83036; 83540; 83550; 83605; 83735; 83880; 84100; 84145; 84443; 85025; 85378; 85610; 85730; 86140; 86403; 87040; 87070; 87205; 87641; 87804; 93306; 94640; 94664; 96365; 96366; 96367; 96372; 96375; 97110; 97116; 97162; 97530; 99285; C9113; J0696; J1100; J1650; J1815; J1940; J1956; J2270; J2543; J3370; J3480; J7626; Q0144; Q9967

== ENCOUNTER 2022-07-20 15:42 | Emergency (ER) | payer MEDICARE, OTHER, SELFPAY ==
[2022-07-20 16:17] VITALS: BP 198/99; PULSE 76; RESP 14; TEMP 36.8; O2SAT 97; BMI 31.4
[2022-07-20 20:41] VITALS: BP 237/136; PULSE 92; RESP 18; O2SAT 100
--- NOTE | 2022-07-20 20:41 | W.ED.HA ---
HPI - Headache General: Chief Complaint: Headache Stated Complaint: neck pain, headache Time Seen by Provider: 07/20/22 18:44 History of Present Illness: 67-year-old female comes in today with complaints of right-sided headache starting last night. Patient reports the pain starts in the back of her neck and goes up to her right forehead along her right jaw, and then noticed a vesicular lesion to her right chin this morning. Patient appears nontoxic. Patient appears in moderate pain. Associated symptoms: Deny chest pain, fever(s), nausea or vomiting Review of Systems Const: Denies: fever(s) Card: Denies: chest pain Resp: Denies: dyspnea GI: Denies: nausea or vomiting Musc: Reports: neck pain Skin/Breast: Reports: new lesions Neuro: Reports: headache(s) PFSH ED PFSH: Medical History (Updated 07/20/22 @ 20:46 by GUERRERO Nicholson) COVID-19 GERD (gastroesophageal reflux disease) Pneumonia due to 2019-nCoV Sarcoidosis Sarcoidosis, lung Surgical History (Updated 01/27/21 @ 16:27 by Joe Burch MD) Gastric bypass status for obesity Social History (Updated 01/27/21 @ 16:28 by Joe Burch MD) Smoking and tobacco status: former smoker Alcohol intake: never Substance/Drug Use: never Caregiver/support person: Yes Lives independently: Yes Household members: family Housing: House Marital status: Physical Exam Const: COMMON NORMALS: alert HENMT: COMMON NORMALS: normocephalic HEAD & SCALP: normocephalic and other FACE & SINUS: Facial tenderness on exam of face and sinuses and other (Vesicular lesion right chin) MOUTH: Normal oral and palatal mucosa present Neck/C-Spine: COMMON NORMALS: full ROM Chest: COMMONS NORMALS: normal palpation of entire chest wall Resp: COMMON NORMALS: normal respiratory effort and clear to auscultation bilaterally AUSCULTATION: clear to auscultation bilaterally Cardio: COMMON NORMALS: regular rate RATE: regular rate Back/Pelvis: COMMON NORMALS: thoracic and lumbar spine normal to inspection Extremity: COMMON NORMALS: full ROM Neuro: SENSORIUM/ORIENTATION: Yes alert Skin: COMMON NORMALS: turgor normal GENERAL SKIN EXAM: turgor normal LESIONS: lesion noted (Vesicular lesion to the right side of face) Course Vital Signs: Vital signs: Vital Signs Temperature 98.2 F 07/20/22 16:17 Pulse Rate 92 07/20/22 20:41 Respiratory Rate 18 07/20/22 20:41 Blood Pressure 224/139 07/20/22 20:51 Pulse Oximetry 100 07/20/22 20:41 Oxygen Delivery Me thod Room Air 07/20/22 20:41 MDM - Headache Medical Decision Making 67-year-old female comes in today with complaints of headache, which radiates around to the forehead and down the jaw on the right side. Patient also reports some light sensitivity in the right eye and right ear sound sensitivity. On exam we note a vesicular lesion to the right face. Respirations are even lungs are clear to auscultation. No vertebral tenderness of the cervical spine. Differential diagnosis includes not limited to cervical radiculopathy, shingles/herpetic neuralgia, folliculitis. Appearance of the lesions suggestive vesicular lesions and a herpes zoster outbreak. Patient describes pain similar to neuralgia. Reviewed exam with patient with recommendations for treatment and follow-up. Patient reported understanding and agreed to plan. Discharge Plan Discharge Patient Disposition: Home Clinical Impression: Shingles Qualifiers: Herpes zoster complications: without complications Qualified Code(s): B02.9 - Zoster without complications Condition: Stable Prescriptions: New hydrocodone-acetaminophen 7.5-325 mg tablet 1 tab PO Q6H PRN (Reason: pain) Qty: 12 0RF valacyclovir 1 gram tablet 1,000 mg PO Q8H 7 Days Qty: 21 0RF gabapentin 300 mg capsule 300 mg PO BID Qty: 30 0RF No Action hydrocodone-acetaminophen 10-325 mg tablet 1 tab PO Q6H PRN (Reason: Pain) pantoprazole 40 mg tablet,delayed release (DR/EC) 40 mg PO BID biotin 5 mg capsule 5 mg PO DAILY PRN (Reason: takes when she remembers) acetaminophen 500 mg Tablet 500 mg PO Q4H PRN (Reason: Pain) trazodone 100 mg tablet 100 mg PO BEDTIME PRN (Reason: Sleep) ProAir HFA 90 mcg/actuation Hfa Aerosol Inhaler 2 puff INHALATION QID PRN (Reason: Shortness Of Breath) Bariatric Multivitamins 45 mg iron- 800 mcg-120 mcg Capsule 1 cap PO DAILY PRN (Reason: states she takes when she remembers) benzonatate 100 mg Capsule 200 mg PO TID PRN (Reason: Cough) Qty: 90 0RF lisinopril 2.5 mg tablet 2.5 mg PO DAILY Qty: 90 0RF Discharge Orders: Discharge ED (Routine); Ordered 07/20/22 Ordered By: Robert Chang Referrals: Deacon Armas [Primary Care Provider] - Discharge Diet: Usual diet Discharge Activity: Increase activity as tolerated Patient Instructions: Kasia (ED) Activity Restrictions/Additional Instructions: Drink plenty water and fluids. Take medications as directed. Follow-up with family practice provider in 2 to 3 days for recheck. Return to ED for worsening symptoms or new concerns. Coding Level of Care Code ED Weight Reducing Technician for Murray Frazier
[2022-07-20 20:51] VITALS: BP 224/139
[2022-07-20] MEDS: valACYclovir 1,000 mg Tablet 1000 MG PO (20:51)
[2022-07-20] MEDS: cloNIDine 0.1 mg Tablet PO (20:51)
[2022-07-20] MEDS: HYDROcodone-acetaminophen 7.5-325 mg Tablet 1 TAB PO (20:51)
[2022-07-20] MEDS: gabapentin 300 mg Capsule PO (20:51)
[2022-07-20 21:21] VITALS: BP 212/113
[2022-07-20 21:38] VITALS: BP 172/102; PULSE 67; RESP 18; O2SAT 97
== END 2022-07-20 21:43 | disposition home or self-care (01) ==
PROVIDERS: Emergency Provider Nurse Practitioner Family; PCP Family Medicine
DX: B02.9 Zoster without complications (principal)
CPT/HCPCS: 99283

== ENCOUNTER 2023-02-19 11:46 | Emergency (ER) | payer MEDICARE, OTHER, SELFPAY ==
[2023-02-19 11:54] VITALS: BP 172/99; PULSE 87; RESP 17; TEMP 36.7; O2SAT 100
--- NOTE | 2023-02-19 13:56 | XRR_ITS ---
PROCEDURE INFORMATION: Exam: XR Chest Exam date and time: 02/19/2023 3:43 PM Age: 67 years old Clinical indication: Cough and fever; Additional info: Cough, fevers TECHNIQUE: Imaging protocol: Radiologic exam of the chest. Views: 1 view. COMPARISON: CR XR chest 1V portable [id number] 02/04/2021 5:30 AM FINDINGS: Lungs: Interval resolution of airspace opacity seen on the prior exam. Coarsening of the pulmonary interstitium. There are some interspersed ground-glass opacities and more significant interstitial coarsening in the left mid lung zone and in the right lung base of the indeterminate intercurrent chronicity with possible component of postinflammatory scarring. Pleural spaces: No pleural effusion. Heart/Mediastinum: Cardiomediastinal contours within normal limits. Bones/joints: Degenerative changes of the right shoulder. XR/XR chest 1V portable [id number] IMPRESSION: Left mid lung zone right basilar pulmonary abnormalities in areas of earlier airspace disease. Findings indeterminate for postinflammatory scarring versus recurrent infectious/inflammatory pathology. Comparison with more recent prior exams would be helpful in further assessment if they become available.
[2023-02-19 15:13] VITALS: BP 169/90; PULSE 81; TEMP 36.8; O2SAT 99
[2023-02-19 17:34] VITALS: BP 198/93; PULSE 89; RESP 21; O2SAT 100
--- NOTE | 2023-02-19 17:36 | ED_ITS ---
Documented by User: Rhys Ruvalcaba DO 02/28/23 07:34 HPI - URI/Sore Throat 2 General: Chief Complaint: Upper Respiratory Infection Stated Complaint: congestion, cough, fever Time Seen by Provider: 02/19/23 17:15 Source: patient Mode of arrival: ambulatory History of Present Illness: 67-year-old female presents emergency ro om stating earlier this week she was told she had pneumonia. She felt like her symptoms have improved somewhat but she is short of breath congested and this morning she noticed the low O2 sat so she presented to the emergency room. She is currently on antibiotics. She has not had any hemoptysis. No chest pain. When she was seen earlier in the week she was tested for COVID and flu and she reports that these were negative MD elicited complaint: fever and cough Onset (ago): minute(s) Associated symptoms: Reports congestion, cough, nasal congestion and short of breath; Deny abdominal pain, change in voice, chills, chest pain, diarrhea, epistaxis, ear or mastoid pain, fever(s), headache(s), myalgias, nausea, rash, rhinorrhea, sinus pain, stiffness, sore throat or vomiting Review of Systems 2 Const: Denies: fever(s) or chills ENMT: Reports: nasal congestion; Denies: ear or mastoid pain, epistaxis or sinus pain Card: Denies: chest pain Resp: Denies: dyspnea GI: Denies: abdominal pain, nausea, vomiting or diarrhea : Denies: dysuria, urinary frequency or urinary urgency Musc: Denies: neck pain or back pain Skin/Breast: Denies: rash Neuro: Denies: headache(s) PFS ED 2 PFSH: Medical History Sarcoidosis, lung GERD (gastroesophageal reflux disease) Sarcoidosis Pneumonia due to 2019-nCoV COVID-19 Surgical History Gastric bypass status for obesity Social History Smoking and tobacco/nicotine status: former use of tobacco/nicotine Alcohol intake: never Substance/Drug Use: never Caregiver/support person: Yes Lives independently: Yes Household members: family Housing: House Marital status: Physical Exam 2 Const: COMMON NORMALS: no acute distress GENERAL APPEARANCE: cooperative and comfortable ORIENTATION/CONSCIOUSNESS: Yes awake, Yes oriented to person, Yes oriented to place and Yes oriented to time HENMT: COMMON NORMALS: normocephalic, atraumatic and hearing grossly normal bilaterally HEAD & SCALP: normocephalic and atraumatic Resp: COMMON NORMALS: normal respiratory effort, No retractions, No use of accessory muscles and clear to auscultation bilaterally AUSCULTATION: clear to auscultation bilaterally Cardio: COMMON NORMALS: regular rate, regular rhythm and No murmurs present (Cardio) RATE: regular rate RHYTHM: regular rhythm GI: COMMON NORMALS: Soft to palpation and No hepatosplenomegaly present A USCULTATION: Yes normoactive bowel sounds PALPATION: Yes Soft to palpation, No Tenderness to palpation present (GI), No Guarding due to palpation present (GI) and Yes No hepatosplenomegaly present Extremity: COMMON NORMALS: normal to inspection, capillary refill normal, no clubbing, cyanosis or edema, no calf tenderness and no pedal edema Neuro: SENSORIUM/ORIENTATION: Yes oriented to person, Yes oriented to place and Yes oriented to time Skin: COMMON NORMALS: no rashes or lesions noted GENERAL SKIN EXAM: no rashes or lesions noted Course 2 Vital Signs: Vital signs: Vital Signs Temperature 98.2 F 02/19/23 15:13 Pulse Rate 79 02/19/23 20:49 Respiratory Rate 13 02/19/23 20:49 Blood Pressure 166/93 02/19/23 20:49 Pulse Oximetry 98 02/19/23 20:49 Oxygen Delivery Nc thod Room Air 02/19/23 18:19 MDM - URI/Sore Throat Medical Decision Making Care signed out to Dr. Peters at change of shift. See final notes for diagnosis and disposition. 67-year-old female checked out to me at shift change by Dr. Alex. This lady has had some shortness of breath and cough. She was diagnosed with pneumonia as an outpatient. Chest x-ray from [facility] reveals left midlung zone and right basilar pulmonary abnormalities similar to prior x-ray, indicative of scar versus new infiltrate. Hemoglobin is 8.8. White blood cell count is 4.5. CRP is elevated. She has been on cefdinir. She is given Rocephin here. We will place her on Zithromax as well. She also received dexamethasone here which we will continue orally. After discharge, it was found that she was RSV positive. There is no specific treatment for this, so we will continue with above. She knows to return for worsening symptoms. Lab Data 02/19/23 17:30 02/19/23 17:30 Radiology Impressions Chest X-Ray 02/19/23 13:56 IMPRESSION: Left mid lung zone right basilar pulmonary abnormalities in areas of earlier airspace disease. Findings indeterminate for postinflammatory scarring versus recurrent infectious/inflammatory pathology. Comparison with more recent prior exams would be helpful in further assessment if they become available. Laboratory Results WBC 4.51 10^3/uL (3.29-11.43) 02/19/23 17:30 RBC 3.77 10^6/uL (3.85-5.65) L 02/19/23 17:30 Hgb 8.80 g/dL (11.27-16.99) L 02/19/23 17:30 Hct 29.5 % (36-47) L 02/19/23 17:30 MCV 78.2 fl (85-98) L 02/19/23 17:30 MCH 23.3 pg (27-33) L 02/19/23 17:30 MCHC 29.8 g/dL (30-55) L 02/19/23 17:30 RDW 16.3 % (12.1-15.1) H 02/19/23 17:30 Plt Count 282 10^3/cmm (157-399) 02/19/23 17:30 MPV 10.3 fL (7.4-10.4) 02/19/23 17:30 Neut % (Auto) 65.9 % 02/19/23 17:30 Lymph % (Auto) 14.6 % 02/19/23 17:30 Geary % (Auto) 15.7 % 02/19/23 17:30 Eos % (Auto) 2.9 % 02/19/23 17:30 Baso % (Auto) 0.7 % 02/19/23 17:30 Neut # (Auto) 2.97 10^3/uL (1.8-7.7) 02/19/23 17:30 Lymph # (Auto) 0.7 10^3/uL (0.8-4.8) L 02/19/23 17:30 Geary # (Auto) 0.7 10^3/uL (0.2-0.9) 02/19/23 17:30 Eos # (Auto) 0.1 10^3/uL (0.0-0.8) 02/19/23 17:30 Baso # (Auto) 0.0 10^3/uL (0.0-0.1) 02/19/23 17:30 Nucleated RBC % (auto) 0 % 02/19/23 17:30 Nucleated RBCs # 0.0 /100WBC 02/19/23 17:30 Sodium 141 mmol/L (136-145) 02/19/23 17:30 Potassium 3.2 mmol/L (3.5-5.1) L 02/19/23 17:30 Chloride 105 mmol/L (98-107) 02/19/23 17:30 Carbon Dioxide 25 mmol/L (22-29) 02/19/23 17:30 Anion Gap 14.2 (5-19) 02/19/23 17:30 BUN 9 mg/dL (8-23) 02/19/23 17:30 Creatinine 0.5 mg/dL (0.5-0.9) 02/19/23 17:30 GFR Calculation 123.4 mL/min (90-130) 02/19/23 17:30 Glucose 99 mg/dL (65-115) 02/19/23 17:30 Calculated Osmolality 291 mOsm/kg (285-295) 02/19/23 17:30 Lactic Acid 0.9 mmol/L (0.5-2.2) 02/19/23 17:30 Calcium 9.0 mg/dL (8.5-10.5) 02/19/23 17:30 Total Bilirubin 0.2 mg/dL (0.15-1.2) 02/19/23 17:30 AST 49 U/L (0-32) H 02/19/23 17:30 ALT 57 U/L (0-33) H 02/19/23 17:30 Alkaline Phosphatase 199 U/L (35-105) H 02/19/23 17:30 C-Reactive Protein 90.1 mg/L (0.0-4.9) H 02/19/23 17:30 Total Protein 7.7 g/dL (6.6-8.7) 02/19/23 17:30 Albumin 3.9 g/dL (3.5-5.2) 02/19/23 17:30 Globulin 3.8 g/dL (1.3-4.6) 02/19/23 17:30 Adenovirus (PCR) Not detected (NOT DETECT) 02/19/23 17:32 C. pneumoniae DNA (PCR) Not detected (NOT DETECT) 02/19/23 17:32 Coronavirus 229E (PCR) Not detected (NOT DETECT) 02/19/23 17:32 Human Metapneumovir PCR Not detected (NOT DETECT) 02/19/23 17:32 Influenza A (H1) PCR Not detected (NOT DETECT) 02/19/23 17:32 Influ A (H1/09) PCR Not detected (NOT DETECT) 02/19/23 17:32 Influenza A (H3) PCR Not detected (NOT DETECT) 02/19/23 17:32 Influenza Type A (PCR) Not detected (NOT DETECT) 02/19/23 17:32 Influenza Type B (PCR) Not detected (NOT DETECT) 02/19/23 17:32 M. pneumoniae (PCR) Not detected (NOT DETECT) 02/19/23 17:32 Parainfluenza 1 (PCR) Not detected (NOT DETECT) 02/19/23 17:32 Parainfluenza 2 (PCR) Not detected (NOT DETECT) 02/19/23 17:32 Parainfluenza 3 (PCR) Not detected (NOT DETECT) 02/19/23 17:32 Parainfluenza 4 (PCR) Not detected (NOT DETECT) 02/19/23 17:32 RSV Type A (PCR) Not detected (NOT DETECT) 02/19/23 17:32 RSV Type B (PCR) Detected (NOT DETECT) A 02/19/23 17:32 Entero/Rhino (PCR) Not detected (NOT DETECT) 02/19/23 17:32 SARS-CoV-2 (PCR) Not detected (NOT DETECT) 02/19/23 17:32 Discharge Plan Discharge Patient Disposition: Home Clinical Impression: Pneumonia Condition: Stable Prescriptions: New dexamethasone 6 mg tablet 6 mg PO DAILY Qty: 5 0RF azithromycin 250 mg tablet See Rx Instructions .ROUTE .COMPLEX Qty: 6 0RF Rx Instructions: For 250 mg dose pack: take 500 mg today (day 1), then 250 mg for 4 days (days 2-5) amlodipine 10 mg tablet 10 mg PO DAILY Qty: 30 0RF No Action hydrocodone-acetaminophen 10-325 mg tablet 1 tab PO Q6H PRN (Reason: Pain) pantoprazole 40 mg tablet,delayed release (DR/EC) 40 mg PO BID biotin 5 mg capsule 5 mg PO DAILY PRN (Reason: takes when she remembers) acetaminophen 500 mg Tablet 500 mg PO Q4H PRN (Reason: Pain) trazodone 100 mg tablet 100 mg PO BEDTIME PRN (Reason: Sleep) ProAir HFA 90 mcg/actuation Hfa Aerosol Inhaler 2 puff INHALATION QID PRN (Reason: Shortness Of Breath) Bariatric Multivitamins 45 mg iron- 800 mcg-120 mcg Capsule 1 cap PO DAILY PRN (Reason: states she takes when she remembers) benzonatate 100 mg Capsule 200 mg PO TID PRN (Reason: Cough) Qty: 90 0RF lisinopril 2.5 mg tablet 2.5 mg PO DAILY Qty: 90 0RF hydrocodone-acetaminophen 7.5-325 mg tablet 1 tab PO Q6H PRN (Reason: pain) Qty: 12 0RF gabapentin 300 mg capsule 300 mg PO BID Qty: 30 0RF Discharge Orders: Discharge ED (Routine); Ordered 02/19/23 Ordered By: Kirill Peters Referrals: Deacon Armas [Primary Care Provider] - 1-3 days Patient Instructions: Pneumonia (ED), Opioid Safety, Pain Management Activity Restrictions/Additional Instructions: Return immediately for worsening shortness of breath despite treatment, inability to control fever, any other concerning symptoms. Check your blood pressure twice daily. Report numbers to your physician. If blood pressures are remaining greater than 150/90, you may take the medication prescribed. If they are not, you do not have to do so. See your doctor next week. Coding Level of Care Code ED Director Community Organization for [facility] Documented by User: Kirill Peters DO 02/19/23 23:23 HPI - URI/Sore Throat 2 General: Chief Complaint: Upper Respiratory Infection Stated Complaint: congestion, cough, fever Time Seen by Provider: 02/19/23 17:15 PFS ED 2 PFSH: Medical History Sarcoidosis, lung GERD (gastroesophageal reflux disease) Sarcoidosis Pneumonia due to 2019-nCoV COVID-19 Surgical History Gastric bypass status for obesity Social History Smoking and tobacco/nicotine status: former use of tobacco/nicotine Alcohol intake: never Substance/Drug Use: never Caregiver/support person: Yes Lives independently: Yes Household members: family Housing: House Marital status: Course 2 Vital Signs: Vital signs: Vital Signs Temperature 98.2 F 02/19/23 15:13 Pulse Rate 79 02/19/23 20:49 Respiratory Rate 13 02/19/23 20:49 Blood Pressure 166/93 02/19/23 20:49 Pulse Oximetry 98 02/19/23 20:49 Oxygen Delivery Me thod Room Air 02/19/23 18:19 MDM - URI/Sore Throat Medical Decision Making 67-year-old female checked out to me at shift change by Dr. Alex. This lady has had some shortness of breath and cough. She was diagnosed with pneumonia as an outpatient. Chest x-ray from [facility] reveals left midlung zone and right basilar pulmonary abnormalities similar to prior x-ray, indicative of scar versus new infiltrate. Hemoglobin is 8.8. White blood cell count is 4.5. CRP is elevated. She has been on cefdinir. She is given Rocephin here. We will place her on Zithromax as well. She also received dexamethasone here which we will continue orally. After discharge, it was found that she was RSV positive. There is no specific treatment for this, so we will continue with above. She knows to return for worsening symptoms. Lab Data 02/19/23 17:30 02/19/23 17:30 Radiology Impressions Chest X-Ray 02/19/23 13:56 IMPRESSION: Left mid lung zone right basilar pulmonary abnormalities in areas of earlier airspace disease. Findings indeterminate for postinflammatory scarring versus recurrent infectious/inflammatory pathology. Comparison with more recent prior exams would be helpful in further assessment if they become available. Laboratory Results WBC 4.51 10^3/uL (3.29-11.43) 02/19/23 17:30 RBC 3.77 10^6/uL (3.85-5.65) L 02/19/23 17:30 Hgb 8.80 g/dL (11.27-16.99) L 02/19/23 17:30 Hct 29.5 % (36-47) L 02/19/23 17:30 MCV 78.2 fl (85-98) L 02/19/23 17:30 MCH 23.3 pg (27-33) L 02/19/23 17:30 MCHC 29.8 g/dL (30-55) L 02/19/23 17:30 RDW 16.3 % (12.1-15.1) H 02/19/23 17:30 Plt Count 282 10^3/cmm (157-399) 02/19/23 17:30 MPV 10.3 fL (7.4-10.4) 02/19/23 17:30 Neut % (Auto) 65.9 % 02/19/23 17:30 Lymph % (Auto) 14.6 % 02/19/23 17:30 Geary % (Auto) 15.7 % 02/19/23 17:30 Eos % (Auto) 2.9 % 02/19/23 17:30 Baso % (Auto) 0.7 % 02/19/23 17:30 Neut # (Auto) 2.97 10^3/uL (1.8-7.7) 02/19/23 17:30 Lymph # (Auto) 0.7 10^3/uL (0.8-4.8) L 02/19/23 17:30 Geary # (Auto) 0.7 10^3/uL (0.2-0.9) 02/19/23 17:30 Eos # (Auto) 0.1 10^3/uL (0.0-0.8) 02/19/23 17:30 Baso # (Auto) 0.0 10^3/uL (0.0-0.1) 02/19/23 17:30 Nucleated RBC % (auto) 0 % 02/19/23 17:30 Nucleated RBCs # 0.0 /100WBC 02/19/23 17:30 Sodium 141 mmol/L (136-145) 02/19/23 17:30 Potassium 3.2 mmol/L (3.5-5.1) L 02/19/23 17:30 Chloride 105 mmol/L (98-107) 02/19/23 17:30 Carbon Dioxide 25 mmol/L (22-29) 02/19/23 17:30 Anion Gap 14.2 (5-19) 02/19/23 17:30 BUN 9 mg/dL (8-23) 02/19/23 17:30 Creatinine 0.5 mg/dL (0.5-0.9) 02/19/23 17:30 GFR Calculation 123.4 mL/min (90-130) 02/19/23 17:30 Glucose 99 mg/dL (65-115) 02/19/23 17:30 Calculated Osmolality 291 mOsm/kg (285-295) 02/19/23 17:30 Lactic Acid 0.9 mmol/L (0.5-2.2) 02/19/23 17:30 Calcium 9.0 mg/dL (8.5-10.5) 02/19/23 17:30 Total Bilirubin 0.2 mg/dL (0.15-1.2) 02/19/23 17:30 AST 49 U/L (0-32) H 02/19/23 17:30 ALT 57 U/L (0-33) H 02/19/23 17:30 Alkaline Phosphatase 199 U/L (35-105) H 02/19/23 17:30 C-Reactive Protein 90.1 mg/L (0.0-4.9) H 02/19/23 17:30 Total Protein 7.7 g/dL (6.6-8.7) 02/19/23 17:30 Albumin 3.9 g/dL (3.5-5.2) 02/19/23 17:30 Globulin 3.8 g/dL (1.3-4.6) 02/19/23 17:30 Adenovirus (PCR) Not detected (NOT DETECT) 02/19/23 17:32 C. pneumoniae DNA (PCR) Not detected (NOT DETECT) 02/19/23 17:32 Coronavirus 229E (PCR) Not detected (NOT DETECT) 02/19/23 17:32 Human Metapneumovir PCR Not detected (NOT DETECT) 02/19/23 17:32 Influenza A (H1) PCR Not detected (NOT DETECT) 02/19/23 17:32 Influ A (H1/09) PCR Not detected (NOT DETECT) 02/19/23 17:32 Influenza A (H3) PCR Not detected (NOT DETECT) 02/19/23 17:32 Influenza Type A (PCR) Not detected (NOT DETECT) 02/19/23 17:32 Influenza Type B (PCR) Not detected (NOT DETECT) 02/19/23 17:32 M. pneumoniae (PCR) Not detected (NOT DETECT) 02/19/23 17:32 Parainfluenza 1 (PCR) Not detected (NOT DETECT) 02/19/23 17:32 Parainfluenza 2 (PCR) Not detected (NOT DETECT) 02/19/23 17:32 Parainfluenza 3 (PCR) Not detected (NOT DETECT) 02/19/23 17:32 Parainfluenza 4 (PCR) Not detected (NOT DETECT) 02/19/23 17:32 RSV Type A (PCR) Not detected (NOT DETECT) 02/19/23 17:32 RSV Type B (PCR) Detected (NOT DETECT) A 02/19/23 17:32 Entero/Rhino (PCR) Not detected (NOT DETECT) 02/19/23 17:32 SARS-CoV-2 (PCR) Not detected (NOT DETECT) 02/19/23 17:32 All radiology interpretation(s) finalized by discharge Discharge Plan Discharge Patient Disposition: Home Clinical Impression: Pneumonia Condition: Stable Prescriptions: New dexamethasone 6 mg tablet 6 mg PO DAILY Qty: 5 0RF azithromycin 250 mg tablet See Rx Instructions .ROUTE .COMPLEX Qty: 6 0RF Rx Instructions: For 250 mg dose pack: take 500 mg today (day 1), then 250 mg for 4 days (days 2-5) amlodipine 10 mg tablet 10 mg PO DAILY Qty: 30 0RF No Action hydrocodone-acetaminophen 10-325 mg tablet 1 tab PO Q6H PRN (Reason: Pain) pantoprazole 40 mg tablet,delayed release (DR/EC) 40 mg PO BID biotin 5 mg capsule 5 mg PO DAILY PRN (Reason: takes when she remembers) acetaminophen 500 mg Tablet 500 mg PO Q4H PRN (Reason: Pain) trazodone 100 mg tablet 100 mg PO BEDTIME PRN (Reason: Sleep) ProAir HFA 90 mcg/actuation Hfa Aerosol Inhaler 2 puff INHALATION QID PRN (Reason: Shortness Of Breath) Bariatric Multivitamins 45 mg iron- 800 mcg-120 mcg Capsule 1 cap PO DAILY PRN (Reason: states she takes when she remembers) benzonatate 100 mg Capsule 200 mg PO TID PRN (Reason: Cough) Qty: 90 0RF lisinopril 2.5 mg tablet 2.5 mg PO DAILY Qty: 90 0RF hydrocodone-acetaminophen 7.5-325 mg tablet 1 tab PO Q6H PRN (Reason: pain) Qty: 12 0RF gabapentin 300 mg capsule 300 mg PO BID Qty: 30 0RF Discharge Orders: Discharge ED (Routine); Ordered 02/19/23 Ordered By: Kirill Peters Referrals: Deacon Armas [Primary Care Provider] - 1-3 days Patient Instructions: Pneumonia (ED), Opioid Safety, Pain Management Activity Restrictions/Additional Instructions: Return immediately for worsening shortness of breath despite treatment, inability to control fever, any other concerning symptoms. Check your blood pressure twice daily. Report numbers to your physician. If blood pressures are remaining greater than 150/90, you may take the medication prescribed. If they are not, you do not have to do so. See your doctor next week. Coding Level of Care Code ED Director Community Organization for [facility]
[2023-02-19 18:19] VITALS: BP 177/100; O2SAT 97
[2023-02-19 19:10] LABS: Basophils % 0.7 %; Eosinophils # 0.1 10^3/uL (0.0-0.8); Eosinophils % 2.9 %; Hematocrit 29.5 % (36-47); Lymphocytes # 0.7 10^3/uL (0.8-4.8); Lymphocytes % 14.6 %; Mean Corpuscular HGB Conc 29.8 g/dL (30-55); Mean Corpuscular Hemoglobin 23.3 pg (27-33); Mean Corpuscular Volume 78.2 fl (85-98); Mean Platelet Volume 10.3 fL (7.4-10.4); Monocytes # 0.7 10^3/uL (0.2-0.9); Monocytes % 15.7 %; Neutrophils # 2.97 10^3/uL (1.8-7.7); Neutrophils % 65.9 %; Nucleated Red Blood Cells % 0 %; Platelet Count 282 10^3/cmm (157-399); Red Blood Count 3.77 10^6/uL (3.85-5.65); Red Cell Distribution Width 16.3 % (12.1-15.1); White Blood Count 4.51 10^3/uL (3.29-11.43)
[2023-02-19 19:31] LABS: Alanine Aminotransferase 57 U/L (0-33); Albumin Level 3.9 g/dL (3.5-5.2); Alkaline Phosphatase 199 U/L (35-105); Anion Gap 14.2 (5-19); Aspartate Amino Transferase 49 U/L (0-32); Blood Urea Nitrogen 9 mg/dL (8-23); C Reactive Protein 90.1 mg/L (0.0-4.9); Carbon Dioxide 25 mmol/L (22-29); Chloride 105 mmol/L (98-107); Globulin 3.8 g/dL (1.3-4.6); Glomerular Filtration Rate 123.4 mL/min (90-130); Glucose 99 mg/dL (65-115); Osmolality Calculated 291 mOsm/kg (285-295); Potassium 3.2 mmol/L (3.5-5.1); Sodium 141 mmol/L (136-145); Total Bilirubin 0.2 mg/dL (0.15-1.2); Total Protein 7.7 g/dL (6.6-8.7)
[2023-02-19 19:32] LABS: Lactic Sepsis W/Reflex 0.9 mmol/L (0.5-2.2)
[2023-02-19] MEDS: cefTRIAXone 1,000 MG in sodium chloride 0.9% (plus) 50 ML 100 MG IV (19:39)
[2023-02-19] MEDS: dexamethasone 10 mg/mL INJ IVP (19:40)
[2023-02-19] MEDS: lisinopril 10 mg Tablet PO (19:40)
--- NOTE | 2023-02-19 19:56 | PC.NURSE ---
Order put in per Dr Peters's verbal order for 20mg Labetalol IVP once.
[2023-02-19] MEDS: labetalol 5 mg/mL SDV 20mL 20 MG IVP (20:04)
[2023-02-19 20:49] VITALS: BP 166/93; PULSE 79; RESP 13; O2SAT 98
[2023-02-19 21:54] LABS: Adenovirus Not Detected (NOT DETECT); Chlamydia Pneumoniae Not Detected (NOT DETECT); Coronavirus 229E,HKU1,NL63,OC4 Not Detected (NOT DETECT); Human Metapneumovirus Not Detected (NOT DETECT); Human Rhinovirus/Enterovirus Not Detected (NOT DETECT); Influenza A Not Detected (NOT DETECT); Influenza A H1 Not Detected (NOT DETECT); Influenza A H1-2009 Not Detected (NOT DETECT); Influenza A H3 Not Detected (NOT DETECT); Influenza B Not Detected (NOT DETECT); Mycoplasma Pneumoniae Not Detected (NOT DETECT); Parainfluenza Virus Type 1 Not Detected (NOT DETECT); Parainfluenza Virus Type 2 Not Detected (NOT DETECT); Parainfluenza Virus Type 3 Not Detected (NOT DETECT); Parainfluenza Virus Type 4 Not Detected (NOT DETECT); Respiratory Syncytial Virus A Not Detected (NOT DETECT); SARS-COV-2 Not Detected (NOT DETECT)
[2023-02-19 21:57] LABS: Respiratory Syncytial Virus B Detected (NOT DETECT)
== END 2023-02-19 20:50 | disposition home or self-care (01) ==
PROVIDERS: Physician Assistant; Emergency Provider Emergency Medicine; PCP Family Medicine
DX: J18.9 Pneumonia, unspecified organism (principal); Z11.52 Encounter for screening for COVID-19; Z87.891 Personal history of nicotine dependence
CPT/HCPCS: 71045; 80053; 83605; 85025; 86140; 87486; 87581; 87633; 96374; 96375; 99284; J0696; J1100; J3490

== ENCOUNTER → 2023-05-04 08:30 | Outpatient (BNVA) | payer MEDICARE, OTHER, SELFPAY | PROVIDERS: PCP Family Medicine; Referring Provider Family Medicine; Visit Provider Surgery | DX: Z12.11 Encounter for screening for malignant neoplasm of colon (principal) | CPT/HCPCS: 99024; 99203 ==

== ENCOUNTER 2023-06-11 10:21 | Oncology outpatient (recurring) (ONCR) | payer MEDICARE, OTHER, SELFPAY ==
[2023-06-11] MEDS: cyanocobalamin 1,000 mcg/mL SDV 1000 MCG IM (11:01)
== END 2023-06-15 23:59 | disposition home or self-care (01) ==
PROVIDERS: PCP Family Medicine; Visit Provider Family Medicine
DX: E53.8 Deficiency of other specified B group vitamins (principal)
CPT/HCPCS: 96372; J3420

== ENCOUNTER 2023-07-09 10:51 | Oncology outpatient (recurring) (ONCR) | payer MEDICARE, OTHER, SELFPAY ==
[2023-07-09 11:00] VITALS: BMI 33.0
[2023-07-09 11:01] VITALS: BP 124/72; PULSE 84; RESP 18; TEMP 37.1; O2SAT 96
[2023-07-09] MEDS: cyanocobalamin 1,000 mcg/mL SDV 1000 MCG IM (11:05)
== END 2023-07-16 23:59 | disposition home or self-care (01) ==
PROVIDERS: PCP Family Medicine; Visit Provider Family Medicine
DX: D64.9 Anemia, unspecified (principal); Z79.899 Other long term (current) drug therapy
CPT/HCPCS: 96372; J3420

== ENCOUNTER 2023-07-22 08:03 | Day surgery (SDC) | payer MEDICARE, OTHER, SELFPAY ==
--- NOTE | 2023-07-22 07:35 | W.PM.OPSFHP ---
Same Day Surgery H&P Indication for Procedure/HPI DATE OF PROCEDURE: July 22, 2023 CHIEF COMPLAINT/INDICATIONFOR SURGICAL PROCEDURE: need for screening colonoscopy PREOP DIAGNOSIS: need for screening colonoscopy PLANNED PROCEDURE: Operation Date: 07/22/23 09:10 Proposed Procedures p Colonoscopy 69081, G0121, Z12.11(Not Applicable) - Cj Reyes MD Medications/Allergies* Home Medications Medication Instructions Recorded Confirmed Type biotin 5 mg capsule 5 mg PO DAILY PRN takes when she 09/20/20 07/20/23 History remembers pantoprazole 40 mg tablet,delayed 40 mg PO BID 09/20/20 07/20/23 History release acetaminophen 500 mg tablet 500 mg PO Q4H PRN Pain 01/27/21 07/20/23 History albuterol sulfate 90 mcg/actuation 2 puff inhalation QID PRN 01/27/21 07/20/23 History aerosol inhaler (ProAir HFA) Shortness Of Breath [id number] 45 mg-folic 1 cap PO DAILY PRN states she 01/27/21 07/20/23 History acid 800 mcg-vit K 120 mcg capsule takes when she remembers (Bariatric Multivitamins) bumetanide 1 mg tablet 1 mg PO BID 07/20/23 07/20/23 History empagliflozin 10 mg tablet 10 mg PO DAILY 07/20/23 07/20/23 History (Jardiance) hydroxyzine HCl 50 mg tablet 50 mg PO Q12H PRN Itching 07/20/23 07/20/23 History methocarbamol 750 mg tablet 750 mg PO Q12H PRN muscle spasms 07/20/23 07/20/23 History ropinirole 1 mg tablet 1 mg PO TID 07/20/23 07/20/23 History sacubitril 24 mg-valsartan 26 mg 1 tab PO BID 07/20/23 07/20/23 History tablet (Entresto) spironolactone 25 mg tablet 25 mg PO DAILY 07/20/23 07/20/23 History Allergies/Adverse Reactions Allergy/AdvReac Type Severity Reaction Status Date / Time NSAIDS (Non-Steroidal AdvReac ADR-Gastrointestinal Verified 07/20/23 13:20 Anti-Inflamma Upset Pertinent History/Comorbid Conditions* Medical History (Updated 06/02/23 @ 12:09 by April Rennick, RN) Sarcoidosis, lung GERD (gastroesophageal reflux disease) Sarcoidosis Pneumonia due to 2019-nCoV COVID-19 Surgical History (Updated 01/27/21 @ 16:27 by Joe Burch MD) Gastric bypass status for obesity Social History Smoking and tobacco/nicotine status: former use of tobacco/nicotine Alcohol intake: never Substance/Drug Use: never Caregiver/support person: Yes Lives independently: Yes Household members: family Housing: House Marital status: Pertinent Exam Findings alert, oriented x 3 and clear to auscultation bilaterally Recommendations Surgery/Procedure today Coding Level of Care Code Acute Code for [facility] Fwd
[2023-07-22 08:18] VITALS: BP 143/85; PULSE 69; RESP 18; TEMP 36.3; O2SAT 100; BMI 32.5
[2023-07-22] MEDS: sodium chloride 0.9% 1,000 ML 30 ML IV (08:27)
--- NOTE | 2023-07-22 08:35 | ANES.PREANE2 ---
Pre-Anesthetic Assessment Height/Weight: Height 1.8 m Weight 105.687 kg Temp Pulse Resp BP Pulse Ox O2 Del Method 97.4 F L 69 18 143/85 100 Room Air 07/22/23 08:18 07/22/23 08:18 07/22/23 08:18 07/22/23 08:18 07/22/23 08:18 07/22/23 08:18 Preop Diagnosis: need for screening colonoscopy Operation Date: 07/22/23 09:10 Proposed Procedures p Colonoscopy 11538, G0121, Z12.11(Not Applicable) - Cj Reyes MD Familial anesthetic complications: none Was Beta Ruth taken within 24 hours: N/A Was Clonidine taken within 24 hours: N/A Last intake: Intake Last Liquid Date 07/20/23 Last Liquid Time 22:30 Last Solid Date 07/20/23 Last Solid Time 19:30 Social No alcohol and No tobacco Exam alert, oriented x 3 and regular rate & rhythm Airway Mallampati: Class II Dentition: false History/ROS No significant history except as noted Pulmonary sarcoidosis CV/HEM Anemia, Congestive Heart Failure and Hypertension None reported Hepatic None reported GI Gastroesophageal Reflux Disease gastric bypass 2016 Metabolic None reported Musc/skel Lower Back Pain Neuropsych None reported Anesthetic Plan ASA status: 3 Anesthesia: Anesthesia Evaluation and MAC Risk of > 500 ml blood loss (7ml/kg in children): No Medications/Allergies Home Medications Medication Instructions Recorded Confirmed Last Taken Type biotin 5 mg capsule 5 mg PO DAILY PRN takes when she 09/20/20 07/22/23 07/20/23 History remembers pantoprazole 40 mg tablet,delayed 40 mg PO BID 09/20/20 07/22/23 07/20/23 History release acetaminophen 500 mg tablet 500 mg PO Q4H PRN Pain 01/27/21 07/22/23 07/21/23 History albuterol sulfate 90 mcg/actuation 2 puff inhalation QID PRN 01/27/21 07/22/23 07/20/23 History aerosol inhaler (ProAir HFA) Shortness Of Breath [id number] 45 mg-folic 1 cap PO DAILY PRN states she 01/27/21 07/22/23 07/20/23 History acid 800 mcg-vit K 120 mcg capsule takes when she remembers (Bariatric Multivitamins) bumetanide 1 mg tablet 1 mg PO BID 07/20/23 07/22/23 07/20/23 History empagliflozin 10 mg tablet 10 mg PO DAILY 07/20/23 07/22/23 07/20/23 History (Jardiance) hydroxyzine HCl 50 mg tablet 50 mg PO Q12H PRN Itching 07/20/23 07/22/23 07/20/23 History methocarbamol 750 mg tablet 750 mg PO Q12H PRN muscle spasms 07/20/23 07/22/23 Unknown History ropinirole 1 mg tablet 1 mg PO TID 07/20/23 07/22/23 07/22/23 History sacubitril 24 mg-valsartan 26 mg 1 tab PO BID 07/20/23 07/22/23 07/20/23 History tablet (Entresto) spironolactone 25 mg tablet 25 mg PO DAILY 07/20/23 07/22/23 07/20/23 History Allergies Allergy/AdvReac Type Severity Reaction Status Date / Time NSAIDS (Non-Steroidal AdvReac ADR-Gastrointestinal Verified 07/20/23 13:20 Anti-Inflamma Upset Current Medications Generic Name Dose Route Start Last Admin Trade Name Freq PRN Reason Stop Dose Admin Sodium Chloride 1,000 mls @ 30 mls/hr 07/22/23 08:15 07/22/23 08:27 Sodium Chloride 0.9% IV 30 mls/hr .Q24H PERCY Administration PFSH Anesthesia Medical History Sarcoidosis, lung GERD (gastroesophageal reflux disease) Sarcoidosis Pneumonia due to 2019-nCoV COVID-19 Surgical History Gastric bypass status for obesity Social History Smoking and tobacco/nicotine status: former use of tobacco/nicotine Alcohol intake: never Substance/Drug Use: never Caregiver/support person: Yes Lives independently: Yes Household members: family Housing: House Marital status: Data Anesthesia Cardiac Studies: Echocardiogram 01/28/21
[2023-07-22 09:57] VITALS: BP 105/61; PULSE 63; RESP 12; TEMP 36.1; O2SAT 100
[2023-07-22 10:14] VITALS: BP 122/77; PULSE 62; RESP 18; O2SAT 100
--- NOTE | 2023-07-22 10:40 | ANE.PACU2 ---
Inpatient post-anesthesia follow up: Airway intact: Yes Vital signs: Temperature 97.0 F Pulse Rate 62 Respiratory Rate 18 Blood Pressure 122/77 Pulse Oximetry 100 Oxygen Delivery Me thod Room Air Oxygen Flow Rate Fraction of Inspir ed Oxygen Hydration adequate: Yes Nausea and vomiting: No Pain level: 1 Mental status: Baseline
== END 2023-07-22 10:40 | disposition home or self-care (01) ==
PROVIDERS: PCP Family Medicine; Visit Provider Surgery
PROC: 0DJD8ZZ Inspection of Lower Intestinal Tract, Via Natural or Artificial Opening Endoscopic (ICD-10-PCS; CPT 45378; principal; 2023-07-22 09:10)
DX: Z12.11 Encounter for screening for malignant neoplasm of colon (principal); K21.9 Gastro-esophageal reflux disease without esophagitis; Z86.16 Personal history of COVID-19; Z87.891 Personal history of nicotine dependence; I11.0 Hypertensive heart disease with heart failure; I50.9 Heart failure, unspecified; Z98.1 Arthrodesis status
CPT/HCPCS: G0121; J2704; J7030

== ENCOUNTER 2023-08-06 10:56 | Oncology outpatient (recurring) (ONCR) | payer MEDICARE, OTHER, SELFPAY ==
[2023-08-06] MEDS: cyanocobalamin 1,000 mcg/mL SDV 1000 MCG IM (11:43)
== END 2023-08-15 23:59 | disposition home or self-care (01) ==
PROVIDERS: PCP Family Medicine; Visit Provider Family Medicine
DX: E53.8 Deficiency of other specified B group vitamins (principal)
CPT/HCPCS: 96372; J3420

== ENCOUNTER 2023-08-30 10:52 | Oncology outpatient (recurring) (ONCR) | payer MEDICARE, OTHER, SELFPAY ==
[2023-08-30 11:17] VITALS: BP 170/89; PULSE 88; RESP 18; O2SAT 97
[2023-08-30] MEDS: cyanocobalamin 1,000 mcg/mL SDV 1000 MCG IM (11:20)
== END 2023-09-15 23:59 | disposition home or self-care (01) ==
PROVIDERS: PCP Family Medicine; Visit Provider Family Medicine
DX: E53.8 Deficiency of other specified B group vitamins (principal)
CPT/HCPCS: 96372; J3420

== ENCOUNTER 2023-10-04 14:25 | Oncology outpatient (recurring) (ONCR) | payer MEDICARE, OTHER, SELFPAY ==
[2023-10-04] MEDS: cyanocobalamin 1,000 mcg/mL SDV 1000 MCG IM (14:51)
== END 2023-10-16 23:59 | disposition home or self-care (01) ==
PROVIDERS: PCP Family Medicine; Visit Provider Family Medicine
DX: Z79.899 Other long term (current) drug therapy; D64.9 Anemia, unspecified
CPT/HCPCS: 96372; J3420

== ENCOUNTER 2023-11-01 13:52 | Oncology outpatient (recurring) (ONCR) | payer MEDICARE, OTHER, SELFPAY ==
[2023-11-01] MEDS: cyanocobalamin 1,000 mcg/mL SDV 1000 MCG IM (14:18)
== END 2023-11-15 23:59 | disposition home or self-care (01) ==
PROVIDERS: PCP Family Medicine; Visit Provider Family Medicine
DX: D64.9 Anemia, unspecified; Z79.899 Other long term (current) drug therapy
CPT/HCPCS: 96372; J3420

== ENCOUNTER 2023-11-29 10:31 | Outpatient (RCR) | payer MEDICARE, OTHER, SELFPAY | END 2023-12-16 23:59 | disposition home or self-care (01) | LOC: SPT 10:31 | DX: R26.81 Unsteadiness on feet (principal); M54.9 Dorsalgia, unspecified; M79.604 Pain in right leg | CPT/HCPCS: 97110; 97161 ==

== ENCOUNTER 2023-12-17 06:00 | Outpatient (RCR) | payer MEDICARE, OTHER, SELFPAY | END 2024-01-15 23:59 | disposition home or self-care (01) | LOC: SPT 06:00 | DX: R26.9 Unspecified abnormalities of gait and mobility (principal); M54.50 Low back pain, unspecified | CPT/HCPCS: 97110; 97112; 97164 ==

== ENCOUNTER 2024-01-16 06:00 | Outpatient (RCR) | payer MEDICARE, OTHER, SELFPAY | END 2024-02-15 23:59 | disposition home or self-care (01) | LOC: SPT 06:00 | DX: R26.9 Unspecified abnormalities of gait and mobility (principal); M54.50 Low back pain, unspecified; M62.81 Muscle weakness (generalized) | CPT/HCPCS: 97110; 97112 ==

== ENCOUNTER 2024-02-16 06:00 | Outpatient (RCR) | payer MEDICARE, OTHER, SELFPAY | END 2024-03-17 23:59 | disposition home or self-care (01) | LOC: SPT 06:00 | DX: M54.50 Low back pain, unspecified (principal); M62.81 Muscle weakness (generalized) | CPT/HCPCS: 97110 ==

== ENCOUNTER 2024-03-18 06:00 | Outpatient (RCR) | payer MEDICARE, OTHER, SELFPAY | END 2024-04-14 23:59 | disposition home or self-care (01) | LOC: SPT 06:00 | DX: R26.81 Unsteadiness on feet (principal); M54.9 Dorsalgia, unspecified; M79.604 Pain in right leg | CPT/HCPCS: 97110 ==